=== PATIENT | female | born 1940 | race Two or more races ===

== ENCOUNTER 2022-12-18 08:26 | Outpatient (OUT) | payer MEDICARE, SELFPAY ==
[2022-12-19 07:42] LABS: Basophils Percent Auto 0.8 % (0.2-2.0); Eosinophils Absolute Auto 0.1 10^3/uL (0.0-0.7); Eosinophils Percent Auto 1.6 % (0.9-7.0); Hematocrit 34.9 % (36.0-48.0); Hemoglobin 11.6 g/dL (12.0-16.0); Lymphocytes Percent Auto 25.9 % (20.5-60.0); Mean Corpuscular HGB Conc 33.2 g/dL (29.9-35.2); Mean Corpuscular Hemoglobin 31.1 pg (26.7-34.0); Mean Corpuscular Volume 93.6 fL (81.0-99.0); Mean Platelet Volume 9.4 fL (9.5-13.5); Monocytes Absolute Auto 0.3 10^3/uL (0.3-0.8); Monocytes Percent Auto 8.5 % (1.7-12.0); Neutrophils Absolute Auto 2.4 10^3/uL (1.4-6.5); Neutrophils Percent Auto 63.2 % (43.0-75.0); Platelet Count 260 10^3/uL (150-450); Red Blood Count 3.73 10^6/uL (4.20-5.40); Red Cell Distribution Width 13.6 % (11.0-15.0); White Blood Count 3.9 10^3/uL (4.0-11.0)
[2022-12-19 09:07] LABS: Estimated Average Glucose 117 mg/dL; Glycohemoglobin A1C 5.7 % (4.5-6.2)
[2022-12-19 13:13] LABS: Alanine Aminotransferase 30 U/L (14-59); Albumin Globulin Ratio 0.9; Albumin Level 3.7 g/dL (3.4-5.0); Alkaline Phosphatase 47 U/L (46-116); Anion Gap 12.5; Aspartate Amino Transferase 23 U/L (15-37); BUN Creatinine Ratio 11.7; Bilirubin Total 0.4 mg/dL (0.2-1.0); Calcium 9.1 mg/dL (8.5-10.1); Carbon Dioxide 27.8 mmol/L (21.0-32.0); Chloride 100 mmol/L (98-107); Chol HDL Ratio 1.6; Cholesterol 146 mg/dL (<=200); Estimated GFR (African America >60 (>=60); Estimated GFR (Non-African Ame 57 (>=60); Globulin 3.9 g/dL; Glucose 102 mg/dL (74-106); HDL Cholesterol 90 mg/dL (40-60); Potassium 4.3 mmol/L (3.5-5.1); Sodium 136 mmol/L (136-145); Total Protein 7.6 g/dL (6.4-8.2); Triglycerides 74 mg/dL (<=150); VLDL CHOLESTEROL 14.8 mg/dL
== END 2022-12-18 08:27 | disposition home or self-care (01) ==
LOC: LAB 08:30
PROVIDERS: PCP Internal Medicine; Visit Provider Internal Medicine
DX: I10 Essential (primary) hypertension (principal); E11.9 Type 2 diabetes mellitus without complications; E78.5 Hyperlipidemia, unspecified
CPT/HCPCS: 36415; 80053; 80061; 83036; 85025

== ENCOUNTER 2023-03-26 09:19 | Outpatient (OUT) | payer MEDICARE, SELFPAY ==
--- NOTE | 2023-03-26 | XR_ITS ---
[address] [address] Patient Name: JUMANA LEAL MRN: [id number] date: 1940 Sex: F Assigned Patient Location: [facility] Current Patient Location: [facility] Accession/Order Number: [id number] Exam Date: 03/26/2023 09:40 Report Date: 03/26/2023 10:45 At the request of: SHAIKH JANELLE Procedure: XR lumbar spine 2-3V EXAM: XR lumbar spine 2-3V HISTORY: Chronic back pain M54.9 COMPARISON: None. TECHNIQUE: 3 views Findings/impression: Moderate S-shaped scoliosis. Thoracolumbar spine. Retrolisthesis of L3 over L4 by 7 mm. Maintained vertebral body heights. Moderate to severe multilevel endplate degenerative changes and disc disease of L1-L4. No acute fracture. Electronically authenticated by: FELISA PERRIN Date: 03/26/2023 10:45
== END 2023-03-26 09:20 | disposition home or self-care (01) ==
LOC: RAD 09:23
PROVIDERS: PCP Internal Medicine; Visit Provider Internal Medicine
DX: M54.9 Dorsalgia, unspecified (principal); M41.85 Other forms of scoliosis, thoracolumbar region; M43.16 Spondylolisthesis, lumbar region; M47.816 Spondylosis without myelopathy or radiculopathy, lumbar region; M51.36 Other intervertebral disc degeneration, lumbar region
CPT/HCPCS: 72100

== ENCOUNTER 2023-07-22 07:41 | Outpatient (OUT) | payer MEDICARE, SELFPAY ==
[2023-07-22 08:07] LABS: Basophils Percent Auto 0.4 % (0.2-2.0); Eosinophils Absolute Auto 0.1 10^3/uL (0.0-0.7); Eosinophils Percent Auto 1.5 % (0.9-7.0); Hematocrit 35.4 % (36.0-48.0); Hemoglobin 11.5 g/dL (12.0-16.0); Immature Granulocytes Abs Auto 0.02 10^3/uL (0.00-0.03); Immature Granulocytes Pct Auto 0.4 % (0.0-0.5); Lymphocytes Absolute Auto 1.3 10^3/uL (1.2-3.8); Lymphocytes Percent Auto 27.1 % (20.5-60.0); Mean Corpuscular HGB Conc 32.5 g/dL (29.9-35.2); Mean Corpuscular Hemoglobin 30.9 pg (26.7-34.0); Mean Corpuscular Volume 95.2 fL (81.0-99.0); Mean Platelet Volume 9.7 fL (9.5-13.5); Monocytes Absolute Auto 0.4 10^3/uL (0.3-0.8); Monocytes Percent Auto 8.1 % (1.7-12.0); Neutrophils Percent Auto 62.5 % (43.0-75.0); Platelet Count 225 10^3/uL (150-450); Red Blood Count 3.72 10^6/uL (4.20-5.40); Red Cell Distribution Width 14.2 % (11.0-15.0); White Blood Count 4.8 10^3/uL (4.0-11.0)
[2023-07-22 08:53] LABS: Estimated Average Glucose 123 mg/dL; Glycohemoglobin A1C 5.9 % (4.5-6.2)
[2023-07-22 09:06] LABS: Alanine Aminotransferase 25 U/L (14-59); Albumin Globulin Ratio 0.9; Albumin Level 3.6 g/dL (3.4-5.0); Alkaline Phosphatase 50 U/L (46-116); Anion Gap 14.1; Aspartate Amino Transferase 20 U/L (15-37); BUN Creatinine Ratio 19.4; Bilirubin Total 0.4 mg/dL (0.2-1.0); Calcium 9.3 mg/dL (8.5-10.1); Carbon Dioxide 28.9 mmol/L (21.0-32.0); Chloride 101 mmol/L (98-107); Chol HDL Ratio 2.1; Cholesterol 176 mg/dL (<=200); Estimated GFR (African America >60 (>=60); Estimated GFR (Non-African Ame 55 (>=60); Globulin 4.1 g/dL; Glucose 94 mg/dL (74-106); HDL Cholesterol 85 mg/dL (40-60); Sodium 140 mmol/L (136-145); Total Protein 7.7 g/dL (6.4-8.2); Triglycerides 129 mg/dL (<=150); VLDL CHOLESTEROL 25.8 mg/dL
== END 2023-07-22 07:42 | disposition home or self-care (01) ==
LOC: LAB 07:42
PROVIDERS: PCP Internal Medicine; Visit Provider Internal Medicine
DX: E11.9 Type 2 diabetes mellitus without complications (principal); E78.5 Hyperlipidemia, unspecified; E03.9 Hypothyroidism, unspecified; I10 Essential (primary) hypertension
CPT/HCPCS: 36415; 80053; 80061; 83036; 84443; 85025

== ENCOUNTER 2024-04-27 08:05 | Outpatient (OUT) | payer MEDICARE, SELFPAY ==
--- OUTSIDE RECORDS SUMMARY | 2024-04-27 08:12 | XMS_ITS | CCD ---
Author Organization [facility] Care Team Providers Care Senior Nuclear Medicine Technologist Name Role Phone FAWWAD, GARCIA H Attending Unavailable FAWWAD, GARCIA H Consulting Unavailable FAWWAD, GARCIA H Primary Care Unavailable FAWWAD, GARCIA H Admitting Unavailable FAWWAD, GARCIA H Attending Unavailable FAWWAD, GARCIA H Consulting Unavailable FAWWAD, GARCIA H Primary Care Unavailable FAWWAD, GARCIA H Admitting Unavailable FAWWAD, GARCIA H Attending Unavailable FAWWAD, GARCIA H Consulting Unavailable FAWWAD, GARCIA H Primary Care Unavailable FAWWAD, GARCIA H Admitting Unavailable FAWWAD, GARCIA Referring Unavailable FAWWAD, GARCIA Primary Care Unavailable SHIRAZ DOBSON Attending Unavailable FAWWAD, GARCIA Primary Care Unavailable Negar CISNEROS, Yannick Primary Care Provider Walsh ECOLOGY PROFESSOR, Marybeth Unavailable JANELLE, GARCIA Attending Unavailable FAWWAD, GARCIA Attending Unavailable WALSHBREE WYATTY Attending Unavailabl BRANDEE Vilchis Attending Unavailable WALSH, MARYBETH Referring Unavailabl e VY DE DIOS Attending Unavailable WALSHMARYBETH HONG Referring Unavailabl e EPI FELIX Attending Unavailable WALSH, MARYBETH Referring Unavailabl e EPI FELIX Attending Unavailable WALSH, MARYBETH Referring Unavailabl e EPI FELIX Attending Unavailable MARYBETH WALSH Referring Unavailabl e EPI FELIX Attending Unavailable WALSH, MARYBETH Referring Unavailabl e VY DE DIOS Attending Unavailable WALSH, MARYBETH Referring Unavailabl e VY DE DIOS Attending Unavailable MARYBETH WALSH Referring Unavailabl e Allergies Allergy Classification Reported Allergen(s) Allergy Type Date of Onset Reaction(s) Facility (1 source) BEE VENOM PROTEIN (HONEY BEE); Translations: [BEE VENOM PROTEIN (HONEY BEE)] Propensity to adverse reactions to drug (disorder) 0 [facility] (7 sources) Honey bee venom Propensity to adverse reactions 0 [facility] Medications Current Medications Medication Drug Class(es) Dates Sig (Normalized) Sig (Original) amLODIPine 5 mg oral tablet (7 sources) Dihydropyridine Calcium Channel Kamryn Start: 4 End: 4 take 1 tablet by mouth in the morning amLODIPine (Norvasc) 5 MG tablet Indications: Primary hypertension (CMS/HCC) Take 1 tablet (5 mg) by mouth in the morning. 90 tablet 1 11/25/2023 05/23/2024 Active atorvastatin 20 mg oral tablet (7 sources) HMG-CoA Reductase Inhibitor Start: 4 End: 5 take 1 tablet by mouth once daily atorvastatin (Lipitor) 20 MG tablet Indications: Other hyperlipidemia (CMS/HCC) Take 1 tablet (20 mg) by mouth Daily 30 tablet 11 03/28/2024 03/28/2025 Active Blood Glucose Monitoring Suppl (True Metrix Meter) w/Device kit (7 sources) Blood Glucose Monitoring Suppl (True Metrix Meter) w/Device kit Active calcium carbonate 1500 mg oral tablet (7 sources) take 1 tablet by mouth in the morning calcium carbonate 1500 (600 Ca) MG tablet Take 1,500 mg by mouth in the morning and 1,500 mg in the evening. Take with meals. Active cholecalciferol 0.05 mg oral capsule (7 sources) Vitamin D take 1 capsule by mouth in the morning cholecalciferol (Vitamin D-3) 50 MCG (2000 UT) capsule Take 2,000 Units by mouth in the morning. 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 Take before meals. 90 tablet 1 10/26/2023 04/23/2024 Active lisinopril 10 mg oral tablet (7 sources) Angiotensin Converting Enzyme Inhibitor Start: 4 End: 4 take 1 tablet by mouth once daily lisinopril 10 MG tablet Indications: Primary hypertension (CMS/HCC) Take 1 tablet (10 mg) by mouth 1 (one) time each day at the same time 90 tablet 1 11/03/2023 05/01/2024 Active loratadine 10 mg oral tablet (7 sources) take 1 tablet by mouth in the morning loratadine (Claritin) 10 MG tablet Take 10 mg by mouth in the morning. Active metFORMIN hydrochloride 500 mg oral tablet (7 sources) Biguanide Start: 4 take 1 tablet by mouth at mealtime metFORMIN (Glucophage) 500 MG tablet Indications: Type 2 diabetes mellitus without complication, without long-term current use of insulin (CMS/HCC) Take 1 tablet (500 mg) by mouth in the morning. Take with meals. 90 tablet 2 03/07/2024 Active omeprazole 20 mg delayed release oral capsule (7 sources) Proton Pump Inhibitor Start: 4 End: 5 take 1 capsule by mouth once daily omeprazole (PriLOSEC) [address] capsule Indications: Gastroesophageal reflux disease without esophagitis Take 1 capsule (20 mg) by mouth 1 (one) time each day at the same time 90 capsule 1 01/11/2024 07/09/2024 Active triamcinolone acetonide 0.055 mg/actuat metered dose nasal spray (7 sources) Corticosteroid take 2 spray(s) nasal route in the morning triamcinolone (Nasacort) 55 MCG/ACT nasal inhaler Administer 2 sprays into each nostril in the morning. Active Problems Active Problems Problem Classification Problem Date Documented Date Episodic/Chronic Deficiency and other anemia (4 sources) Anemia, unspecified; Translations: [ANEMIA UNSPECIFIED] Onset: 03-25-2022 Episodic Diabetes mellitus without complication (11 sources) Type 2 diabetes mellitus without complications; Translations: [Type 2 diabetes mellitus without complication] Onset: 12-16-2021 Chronic Disorders of lipid metabolism (8 sources) Hyperlipidemia, unspecified; Translations: [Hyperlipidemia] Onset: 12-18-2021 07-23-2023 Chronic Esophageal disorders (7 sources) Gastroesophageal reflux disease without esophagitis; Translations: [Gastro-esophageal reflux disease without esophagitis] Onset: 07-23-2023 07-23-2023 Chronic Essential hypertension (10 sources) Essential (primary) hypertension; Translations: [Hypertensive disorder] Onset: 12-18-2021 07-23-2023 Chronic Neoplasms of unspecified nature or uncertain behavior (7 sources) Neoplasm of uncertain behavior of skin; Translations: [Neoplasm of uncertain behavior of skin] Onset: 03-07-2024 03-07-2024 Episodic Osteoarthritis (7 sources) Osteoarthritis of left knee joint; Translations: [Unilateral primary osteoarthritis, left knee] Onset: 07-23-2023 07-23-2023 Chronic Other connective tissue disease (7 sources) History of total knee arthroplasty; Translations: [Presence of left artificial knee joint] Onset: 07-23-2023 07-23-2023 Chronic Spondylosis; intervertebral disc disorders; other back problems (11 sources) Chronic back pain ; Translations: [Dorsalgia, unspecified] 03-07-2024 Episodic Thyroid disorders (8 sources) Hypothyroidism, unspecified; Translations: [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] Onset: 12-18-2021 07-23-2023 Chronic Unclassified (1 source) High BP Onset: 12-15-2023 Past or Other Problems Problem Classification Problem Date Documented Date Episodic/Chronic Other bone disease and musculoskeletal deformities (7 sources) Osteopenia; Translations: [Other specified disorders of bone density and structure, unspecified site] Onset: 07-23-2023 07-23-2023 Episodic Other connective tissue disease (1 source) Personal history of other diseases of the musculoskeletal system and connective tissue; Translations: [Personal history of other diseases of the musculoskeletal system and connective tissue] Onset: 06-25-2023 Episodic Other screening for suspected conditions (not mental disorders or infectious disease) (2 sources) Encounter for screening mammogram for malignant neoplasm of breast; Translations: [Encounter for screening for osteoporosis] Onset: 06-25-2023 Episodic Residual codes; unclassified (1 source) Asymptomatic menopausal state; Translations: [Asymptomatic menopausal state] Onset: 12-28-2023 Episodic Results Test Name Value Interpretation Reference Range Facility DEXA SCAN CENTRAL SKELETALon 06-25-2023 DEXA SCAN CENTRAL SKELETAL DEXA SCAN CENTRAL SKELETAL CLINICAL INFORMATION: Postmenopausal; Screening for osteoporosis; Hx of osteopenia, Post menopausal, TECHNIQUE: Dual X-ray Absorptiometry (DXA) was performed. COMPARISON: No relevant prior studies available. FINDINGS: LUMBAR SPINE (L1-L4): BMD is 1.745 gm/cm2. T-score is 4.4. LEFT FEMORAL NECK: BMD is 0.921 gm/cm2. T-score is -0.8. LEFT TOTAL FEMUR: BMD is 0.974 gm/cm2. T-score is -0.3. RIGHT FEMORAL NECK: BMD is 0.861 gm/cm2. T-score is -1.3. RIGHT TOTAL FEMUR: BMD is 1.000 gm/cm2. T-score is -0.1. The estimated 10-year probability for a major osteoporotic fracture (utilizing FRAX) is 7.5% and for a hip fracture is 1.7%. IMPRESSION: Osteopenia (based on WHO criteria). WHO CLASSIFICATION: Normal: T-score -1.0 or above Osteopenia: T-score -1.1 to < 2.5 Osteoporosis: T-score -2.5 or lower Secondary causes of bone loss should be evaluated if clinically indicated since the etiology of low BMD cannot be determined by BMD measurement alone. 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 Computer-aided detection was used in the interpretation of this examination. COMPARISON: 2017 2020 2021 FINDINGS: Breast density: There are scattered areas of fibroglandular density. No suspicious calcifications, masses or architectural distortion. There has been no significant interval change. IMPRESSION: * No mammographic evidence of malignancy. ASSESSMENT- BI-RADS 1 - Negative Recommendation: Routine screening mammogram in 1 year Finalized by Mian Fleming DO on 06/25/2023 1:32 PM 1 b MAMM 1 YR Normal [facility] TRANSFERRINon 03-27-2022 Transferrin [Mass/Vol] 254 mg/dL Normal 192-364 [facility] Comment on above: Performed By: #### T RANSFR #### [facility] [address] [place] [address] Dr. Esperanza Sheets CBC AUTO DIFFon 03-25-2022 BASO # 0.0 103/ul Normal 0.0-0.1 [facility] Comment on above: Performed By: #### C BC #### [facility] [address] [place] [address] Dr. Esperanza Sheets Basophils/100 WBC (Bld) 0.8 % Normal 0.2-2.0 [facility] Comment on above: Performed By: #### C BC #### [facility] [address] [place] [address] Dr. Esperanza Sheets EO # 0.1 103/ul Normal 0.0-0.7 [facility] Comment on above: Performed By: #### C BC #### [facility] [address] [place] [address] Dr. Esperanza Sheets Eosinophils/100 WBC (Bld) 1.2 % Normal 0.9-7.0 [facility] Comment on above: Performed By: #### C BC #### [facility] [address] [place] [address] Dr. Esperanza Sheets Erythrocyte distribution width (RBC) [Ratio] 14.4 % Normal 11.0-15.0 [facility] Comment on above: Performed By: #### C BC #### [facility] [address] [place] [address] Dr. Esperanza Sheets Hematocrit (Bld) [Volume fraction] 33.5 % Critically low 36.0-48.0 [facility] Comment on above: Performed By: #### C BC #### [facility] [address] [place] [address] Dr. Esperanza Sheets Hemoglobin (Bld) [Mass/Vol] 10.7 g/dL Critically low 12.0-16.0 [facility] Comment on above: Performed By: #### C BC #### [facility] [address] [place] [address] Dr. Esperanza Sheets IG # 0.02 10e3/ul Normal 0.00-0.03 [facility] Comment on above: Performed By: #### C BC #### [facility] [address] [place] [address] Dr. Esperanza Sheets IG % 0.4 % Normal 0.0-0.5 [facility] Comment on above: Performed By: #### C BC #### [facility] [address] [place] [address] Dr. Esperanza Sheets LYMPH # 1.3 103/ul Normal 1.2-3.8 [facility] Comment on above: Performed By: #### C BC #### [facility] [address] [place] [address] Dr. Esperanza Sheets Lymphocytes/100 WBC (Bld) 24.2 % Normal 20.5-60.0 [facility] Comment on above: Performed By: #### C BC #### [facility] [address] [place] [address] Dr. Esperanza Sheets MANUAL DIFF REQ NO Normal [facility] Comment on above: Performed By: #### C BC #### [facility] [address] [place] [address] Dr. Esperanza Sheets MCH (RBC) [Entitic mass] 30.3 pg Normal 26.7-34.0 [facility] Comment on above: Performed By: #### C BC #### [facility] [address] [place] [address] Dr. Esperanza Sheets MCHC (RBC) [Mass/Vol] 31.9 g/dL Normal 29.9-35.2 [facility] Comment on above: Performed By: #### C BC #### [facility] [address] [place] [address] Dr. Esperanza Sheets MCV (RBC) [Entitic vol] 94.9 fL Normal 81.0-99.0 [facility] Comment on above: Performed By: #### C BC #### [facility] [address] [place] [address] Dr. Esperanza Sheets MONO # 0.3 103/ul Normal 0.3-0.8 [facility] Comment on above: Performed By: #### C BC #### [facility] [address] [place] [address] Dr. Esperanza Sheets Monocytes/100 WBC (Bld) 6.5 % Normal 1.7-12.0 [facility] Comment on above: Performed By: #### C BC #### [facility] [address] [place] [address] Dr. Esperanza Sheets NEUT # 3.5 103/ul Normal 1.4-6.5 [facility] Comment on above: Performed By: #### C BC #### [facility] [address] [place] [address] Dr. Esperanza Sheets Neutrophils/100 WBC (Bld) 66.9 % Normal 43.0-75.0 [facility] Comment on above: Performed By: #### C BC #### [facility] [address] [place] [address] Dr. Esperanza Sheets Platelet mean volume (Bld) [Entitic vol] 9.8 fL Normal 9.5-13.5 [facility] Comment on above: Performed By: #### C BC #### [facility] [address] [place] [address] Dr. Esperanza Sheets PLT 265 103/ul Normal 150-450 [facility] Comment on above: Performed By: #### C BC #### [facility] [address] [place] [address] Dr. Esperanza Sheets RBC 3.53 106/ul Critically low 4.20-5.40 [facility] Comment on above: Performed By: #### C BC #### [facility] [address] [place] [address] Dr. Esperanza Sheets WBC 5.2 103/ul Normal 4.0-11.0 [facility] Comment on above: Performed By: #### C BC #### [facility] [address] [place] [address] Dr. Esperanza Sheets FERRITINon 09-27-2022 Ferritin [Mass/Vol] 63.0 ng/mL Normal 8.0-252.0 [facility] Comment on above: Performed By: #### F ETIBC, FERR #### [facility] [address] [place] [address] Dr. Esperanza Sheets IRON AND TIBCon 03-25-2022 % SATURATION 13.7 % Normal [facility] Comment on above: Performed By: #### F ETIBC, FERR #### [facility] [address] [place] [address] Dr. Esperanza Sheets Iron [Mass/Vol] 39.0 ug/dL Critically low 50.0-170.0 [facility] Comment on above: Performed By: #### F ETIBC, FERR #### [facility] [address] [place] [address] Dr. Esperanza Sheets TIBC DIRECT 285.0 ug/dL Normal 250.0-450.0 [facility] Comment on above: Performed By: #### F ETIBC, FERR #### [facility] [address] [place] [address] Dr. Esperanza Sheets ECHOCARDIO M/2D COMPLETEon 0 12-27-2021 ECHOCARDIO M/2D COMPLETE Patient: JUMANA LEAL Exam Date: 12/27/2021 : 1940 Gender:F Ordering : SHAIKH Jesus LUIS . Admission #: [id number] Family : Order #: [id number] CLICK HERE TO VIEW EXAM ECHOCARDIOGRAM REPORT PROCEDURE: CARDIO PULMONARY ECHOCARDIO M/2D COMP INDICATIONS: Pre-operative clearance, hypertension COMPARISON: None. DESCRIPTION: COMPLETE ECHOCARDIOGRAM Real-time transthoracic echocardiography with 2D, M-mode, spectral and color flow Doppler performed. QUALITY: Technical quality was good. LEFT VENTRICLE: Normal chamber size. Thickened septal wall. Normal systolic function. LV EF: Normal left ventricular ejection fraction, (60%). DIASTOLIC: Grade I diastolic dysfunction. ATRIAL SEPTUM: Visually appears intact. LEFT ATRIUM: Mild dilatation. RIGHT ATRIUM: Mild dilatation. RIGHT VENTRICLE: Normal chamber size. Normal right ventricular systolic function. TRICUSPID VALVE: Normal mobility and thickness. No stenosis with no regurgitation. MITRAL VALVE: Normal mobility and thickness. No evidence of mitral valve stenosis. There is no mitral annular calcification. Trivial mitral regurgitation. AORTIC VALVE: Normal trileaflet appearance. No visible sclerosis. Normal leaflet mobility. No evidence of aortic valve stenosis. No aortic regurgitation. AORTIC ROOT: Normal diameter and appearance. Ascending aorta is normal in size. PULMONIC VALVE: Normal thickness and mobility. No stenosis. No regurgitation. PERICARDIUM: No evidence of pericardial effusion. IVC: Collapses with inspirations. PLEURA: CONCLUSION: 1. Normal ventricular systolic function. LVEF is 60%. 2. Mild diastolic dysfunction. 3. Mild biatrial dilatation. 4. No significant valvular dysfunction. 5. No pericardial effusion. Dictated by: Trent Tejada M.D. on 12/27/2021 at 18:38 Approved by: Trent Tejada M.D. on 12/27/2021 at 18:40 Normal [facility] XR femur BIon 12-18-2021 XR femur BI [facility] [place] [address] [place] [address] XRay Report Signed Patient: Jumana Leal MR#: [id number] : 1940 Acct:[id number] Age/Sex: 81 / F ADM Date: 12/18/21 Loc: ICXD Room: Type: [facility] Attending Dr: Emiliano Hui PA-C Copies to: Emiliano Hui PA-C Ordering Provider: Emiliano Hui PA-C Date of Service: 12/18/21 XR/XR tibia/fibula BI: TKA ([id number]) XR/XR femur BI: TKA LEFT KNEE Bilateral femurs and bilateral tibias and fibulas 12/18/2021. CLINICAL DATA: Plan for left knee replacement. Presurgical evaluation. FINDINGS: AP views of both femurs and both tibias and fibulas were obtained. There are degenerative changes at the left knee including joint space narrowing and subchondral sclerosis in the medial femorotibial compartment. There is associated genu varum. Relatively mild degenerative changes are seen at both hips and at the right knee. The lumbar spine demonstrate advanced degenerative changes and curvature. XR/XR tibia/fibula BI IMPRESSION: Degenerative changes at the left knee as described. Impression dictated by: Ivan Yusuf Jr., M.D.12/18/2021 3:28 PM Dictation Location: [place] [address] Transcribed By: [facility] 12/18/211527 Dictated By: Ivan Yusuf Jr, MD 12/18/211521 Signed By: 12/18/211527 [facility] CBC AUTO DIFFon 12-16-2021 BASO # 0.0 103/ul Normal 0.0-0.1 [facility] Comment on above: Performed By: #### C BC #### [facility] [address] [address] [address] Esperanza Sheets Basophils/100 WBC (Bld) 0.6 % Normal 0.2-2.0 [facility] Comment on above: Performed By: #### C BC #### [facility] [address] [place] [address] Dr. Esperanza Sheets EO # 0.1 103/ul Normal 0.0-0.7 [facility] Comment on above: Performed By: #### C BC #### [facility] [address] [address] [address] Esperanza Sheets Eosinophils/100 WBC (Bld) 1.5 % Normal 0.9-7.0 [facility] Comment on above: Performed By: #### C BC #### [facility] [address] [address] [address] Esperanza Sheets Erythrocyte distribution width (RBC) [Ratio] 13.9 % Normal 11.0-15.0 [facility] Comment on above: Performed By: #### C BC #### [facility] [address] [address] [address] Esperanza Sheets Hematocrit (Bld) [Volume fraction] 34.8 % Critically low 36.0-48.0 [facility] Comment on above: Performed By: #### C BC #### [facility] [address] [place] [address] Dr. Esperanza Sheets Hemoglobin (Bld) [Mass/Vol] 11.4 g/dL Critically low 12.0-16.0 [facility] Comment on above: Performed By: #### C BC #### [facility] [address] [place] [address] Dr. Esperanza Sheets IG # 0.02 10e3/ul Normal 0.00-0.03 [facility] Comment on above: Performed By: #### C BC #### [facility] [address] [place] [address] Dr. Esperanza Sheets IG % 0.4 % Normal 0.0-0.5 [facility] Comment on above: Performed By: #### C BC #### [facility] [address] [place] [address] Dr. Esperanza Sheets LYMPH # 2.0 103/ul Normal 1.2-3.8 [facility] Comment on above: Performed By: #### C BC #### [facility] [address] [place] [address] Dr. Esperanza Sheets Lymphocytes/100 WBC (Bld) 37.6 % Normal 20.5-60.0 [facility] Comment on above: Performed By: #### C BC #### [facility] [address] [place] [address] Dr. Esperanza Sheets MANUAL DIFF REQ NO Normal [facility] Comment on above: Performed By: #### C BC #### [facility] [address] [place] [address] Dr. Esperanza Sheets MCH (RBC) [Entitic mass] 31.3 pg Normal 26.7-34.0 [facility] Comment on above: Performed By: #### C BC #### [facility] [address] [place] [address] Dr. Esperanza Sheets MCHC (RBC) [Mass/Vol] 32.8 g/dL Normal 29.9-35.2 [facility] Comment on above: Performed By: #### C BC #### [facility] [address] [place] [address] Dr. Esperanza Sheets MCV (RBC) [Entitic vol] 95.6 fL Normal 81.0-99.0 [facility] Comment on above: Performed By: #### C BC #### [facility] [address] [place] [address] Dr. Esperanza Sheets MONO # 0.3 103/ul Normal 0.3-0.8 [facility] Comment on above: Performed By: #### C BC #### [facility] [address] [address] [address] Esperanza Sheets Monocytes/100 WBC (Bld) 6.6 % Normal 1.7-12.0 [facility] Comment on above: Performed By: #### C BC #### [facility] [address] [place] [address] Dr. Esperanza Sheets NEUT # 2.8 103/ul Normal 1.4-6.5 [facility] Comment on above: Performed By: #### C BC #### [facility] [address] [place] [address] Dr. Esperanza Sheets Neutrophils/100 WBC (Bld) 53.3 % Normal 43.0-75.0 [facility] Comment on above: Performed By: #### C BC #### [facility] [address] [place] [address] Dr. Esperanza Sheets Platelet mean volume (Bld) [Entitic vol] 9.8 fL Normal 9.5-13.5 [facility] Comment on above: Performed By: #### C BC #### [facility] [address] [place] [address] Dr. Esperanza Sheets PLT 274 103/ul Normal 150-450 [facility] Comment on above: Performed By: #### C BC #### [facility] [address] [place] [address] Dr. Esperanza Sheets RBC 3.64 106/ul Critically low 4.20-5.40 [facility] Comment on above: Performed By: #### C BC #### [facility] [address] [place] [address] Dr. Esperanza Sheets WBC 5.2 103/ul Normal 4.0-11.0 [facility] Comment on above: Performed By: #### C BC #### [facility] [address] [place] [address] Dr. Esperanza Sheets GLYCOHEMOGLOBIN A1Con 2021 ADA RECOMMENDATION SEE BELOW Normal [facility] Comment on above: Result Comment: ADA RECOMMENDED LIMIT 4.0 - 6.0 ADA THERAPEUTIC TARGET < 7.0 ACTION SUGGESTED > 7.0 Performed By: #### A 1C #### [facility] [address] [address] [address] Esperanza Sheets Glucose [Mass/Vol] 128 mg/dL Normal [facility] Comment on above: Performed By: #### A 1C #### [facility] [address] [address] [address] Esperanza Sheets HbA1c (Bld) [Mass fraction] 6.1 % Normal 4.5-6.2 [facility] [place] Comment on above: Performed By: #### A 1C #### [facility] [address] [place] [address] Dr. Esperanza Sheets LIPID PROFILEon 12-16-2021 CHOL-HDL RATIO NORM SEE BELOW Normal [facility] Comment on above: Result Comment: 3.3 - 4.4 LOW RISK 4.4 - 7.1 AVERAGE RISK 7.1 - 11.0 MODERATE RISK >11.0 HIGH RISK Performed By: #### L IPID, CMP, TSH #### [facility] [address] [place] [address] Dr. Esperanza Sheets Cholesterol [Mass/Vol] 159 mg/dL Normal <=200 [facility] [place] Comment on above: Performed By: #### L IPID, CMP, TSH #### [facility] [address] [address] [address] Esperanza Sheets Cholesterol in HDL [Mass/Vol] 91 mg/dL Critically high 40-60 [facility] [place] Comment on above: Performed By: #### L IPID, CMP, TSH #### [facility] [address] [place] [address] Dr. Esperanza Sheets Cholesterol in LDL [Mass/Vol] 41.8 mg/dL Normal [facility] [place] Comment on above: Performed By: #### L IPID, CMP, TSH #### [facility] [address] [place] [address] Dr. Esperanza Sheets Cholesterol.total/Cho lesterol in HDL [Mass ratio] 1.7 {ratio} Normal [facility] [place] Comment on above: Performed By: #### L IPID, CMP, TSH #### [facility] [address] [address] [address] Esperanza Sheets HDL NORMAL > or = 60 mg/dl - LOW CARDIOVASCULAR RISK <40 mg/dl - HIGH CARDIOVASCULAR RISK Normal [facility] [place] Comment on above: Performed By: #### L IPID, CMP, TSH #### [facility] [address] [address] [address] Esperanza Sheets LDL CALC NORMAL SEE BELOW Normal [facility] Comment on above: Result Comment: <100 mg/dl OPTIMAL 100 - 129 mg/dl NEAR OR ABOVE OPTIMAL 130 - 159 mg/dl BORDERLINE HIGH 160 - 189 mg/dl HIGH >190 mg/dl VERY HIGH Performed By: #### L IPID, CMP, TSH #### [facility] [address] [place] [address] Dr. Esperanza Sheets Triglyceride [Mass/Vol] 131 mg/dL Normal <=150 [facility] [place] Comment on above: Performed By: #### L IPID, CMP, TSH #### [facility] [address] [place] [address] Dr. Esperanza Sheets VLDL CALC 26.2 mg/dL Normal [facility] [place] Comment on above: Performed By: #### L IPID, CMP, TSH #### [facility] [address] [place] [address] Dr. Esperanza Sheets PROF 14(COMP METB)on 022 Albumin [Mass/Vol] 3.8 g/dL Normal 3.4-5.0 [facility] Comment on above: Performed By: #### L IPID, CMP, TSH #### [facility] [address] [place] [address] Dr. Esperanza Sheets Albumin/Globulin [Mass ratio] 1.0 {ratio} Normal [facility] [place] Comment on above: Performed By: #### L IPID, CMP, TSH #### [facility] [address] [place] [address] Dr. Esperanza Sheets ALP [Catalytic activity/Vol] 56 U/L Normal 46-116 [facility] [place] Comment on above: Performed By: #### L IPID, CMP, TSH #### [facility] [address] [address] [address] Esperanza Sheets ALT [Catalytic activity/Vol] 39 U/L Normal 14-59 [facility] [place] Comment on above: Performed By: #### L IPID, CMP, TSH #### [facility] [address] [address] [address] Esperanza Sheets Anion gap [Moles/Vol] 14.4 mmol/L Normal [facility] Comment on above: Performed By: #### L IPID, CMP, TSH #### [facility] [address] [address] [address] Esperanza Sheets AST [Catalytic activity/Vol] 28 U/L Normal 15-37 [facility] [place] Comment on above: Performed By: #### L IPID, CMP, TSH #### [facility] [address] [address] [address] Esperanza Sheets Bilirubin [Mass/Vol] 0.4 mg/dL Normal 0.2-1.0 [facility] [place] Comment on above: Performed By: #### L IPID, CMP, TSH #### [facility] [address] [place] [address] Dr. Esperanza Sheets Calcium [Mass/Vol] 9.1 mg/dL Normal 8.5-10.1 [facility] Comment on above: Performed By: #### L IPID, CMP, TSH #### [facility] [address] [place] [address] Dr. Esperanza Sheets Chloride [Moles/Vol] 100 mmol/L Normal 98-107 [facility] [place] Comment on above: Performed By: #### L IPID, CMP, TSH #### [facility] [address] [place] [address] Dr. Esperanza Sheets CO2 [Moles/Vol] 25.6 mmol/L Normal 21.0-32.0 [facility] Comment on above: Performed By: #### L IPID, CMP, TSH #### [facility] [address] [address] [address] Esperanza Sheets Creatinine [Mass/Vol] 0.83 mg/dL Normal 0.55-1.02 [facility] [place] Comment on above: Performed By: #### L IPID, CMP, TSH #### [facility] [address] [address] [address] Esperanza Sheets EGFR-AF SWISS >60 Normal >=60 [facility] Comment on above: Performed By: #### L IPID, CMP, TSH #### [facility] [address] [address] [address] Esperanza Sheets EGFR-NON AF SWISS >60 Normal >=60 [facility] [place] Comment on above: Performed By: #### L IPID, CMP, TSH #### [facility] [address] [address] [address] Esperanza Sheets Globulin (S) [Mass/Vol] 3.7 g/dL Normal [facility] [place] Comment on above: Performed By: #### L IPID, CMP, TSH #### [facility] [address] [address] [address] Esperanza Sheets Glucose [Mass/Vol] 148 mg/dL Critically high 74-106 [facility] Comment on above: Performed By: #### L IPID, CMP, TSH #### [facility] [address] [address] [address] Esperanza Sheets Potassium [Moles/Vol] 4.0 mmol/L Normal 3.5-5.1 [facility] [place] Comment on above: Performed By: #### L IPID, CMP, TSH #### [facility] [address] [address] [address] Esperanza Sheets Protein [Mass/Vol] 7.5 g/dL Normal 6.4-8.2 [facility] Comment on above: Performed By: #### L IPID, CMP, TSH #### [facility] [address] [address] [address] Esperanza Sheets Sodium [Moles/Vol] 136 mmol/L Normal 136-145 [facility] Comment on above: Performed By: #### L IPID, CMP, TSH #### [facility] [address] [place], [place] [address] Dr. Esperanza Sheets Urea nitrogen [Mass/Vol] 11.0 mg/dL Normal 7.0-18.0 [facility] Comment on above: Performed By: #### L IPID, CMP, TSH #### [facility] [address] [address] [address] Esperanza Sheets Urea nitrogen/Creatinine [Mass ratio] 13.3 mg/mg Normal [facility] [place] Comment on above: Performed By: #### L IPID, CMP, TSH #### [facility] [address] [address] [address] Esperanza Sheets TSHon 12-16-2021 TSH 2.363 uIU/mL Normal 0.358-3.740 [facility] Comment on above: Performed By: #### L IPID, CMP, TSH #### [facility] [address] [address] [address] Esperanza Sheets Encounters Encounter Date Encounter Type Care Provider Facility Start: 04-15-2024 End: 04-15-2024 ambulatory Vy De Dios PT [facility] Comment on above: Chronic 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 (Primary Dx) Start: 04-05-2024 End: 04-05-2024 Bamboo flowsheet Vy De Dios PT [facility] Start: 04-05-2024 End: 04-05-2024 Bamboo flowsheet Vy De Dios PT [facility] Start: 04-05-2024 End: 04-05-2024 ambulatory Vy De Dios PT [facility] Comment on above: Chronic 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 (Primary Dx) Start: 04-01-2024 End: 04-01-2024 Bamboo flowsheet Epi Felix CABLE MAINTAINER [facility] Start: 04-01-2024 End: 04-01-2024 Bamboo flowsheet Epi Felix CABLE MAINTAINER [facility] Start: 04-01-2024 End: 04-01-2024 ambulatory Epi Felix CABLE MAINTAIN[employer] [facility] Comment on above: Chronic 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 (Primary Dx) Start: 03-29-2024 End: 03-29-2024 Bamboo flowsheet Epi Felix CABLE MAINTAINER [facility] Start: 03-29-2024 End: 03-29-2024 Bamboo flowsheet Epi Felix CABLE MAINTAINER [facility] Start: 03-29-2024 End: 03-29-2024 ambulatory Epi Felxi CABLE MAINTAINER [facility] Comment on above: Chronic 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 (Primary Dx) Start: 03-25-2024 End: 03-25-2024 ambulatory EPI FELIX Not Available Start: 03-23-2024 End: 03-23-2024 ambulatory EPI FELIX Not Available Start: 03-17-2024 End: 03-17-2024 ambulatory VY DE DIOS Not Available Start: 03-16-2024 End: 03-16-2024 ambulatory BRANDEE LANIER Not Available Start: 03-07-2024 End: 03-07-2024 ambulatory MARYBETH MARTINA Not Available Start: 12-15-2023 End: 12-15-2023 Emergency department [facility] Start: 10-26-2023 End: 10-26-2023 ambulatory SHAIKH JUSTINRICKEY Not Available Start: 07-23-2023 End: 07-23-2023 ambulatory GARCIA FAJÚNIOR Not Available Start: 06-25-2023 End: 06-25-2023 ambulatory [facility] Start: 03-25-2022 End: 03-26-2022 ambulatory GARCIA Yohannes JANELLE Facility:[facility] Start: 01-02-2022 Encounter for preprocedural cardiovascular examination GARCIA Yohannes JANELLE [facility] [place] Start: 12-27-2021 End: 12-28-2021 ambulatory GARCIA Yohannes JANELLE Facility:[facility] Start: 12-27-2021 End: 12-28-2021 Encounter for preprocedural cardiovascular examination SHAIKH Yohannes LUIS Facility:[facility] Start: 12-16-2021 End: 12-17-2021 ambulatory Yohannes JANELLE Facility:[facility] Plan of Treatment Date Care Activity Detail Author Start: 11-01-2025 Glaucoma screening Diabetes: R etinopathy Screening [facility] Start: 07-22-2024 Urine screening for protein Diabetes: Urine Protein Screening [facility] Start: 04-28-2024 End: 04-28-2024 Patient encounter procedure 04/28/2024 2:00 PM EDT Office Visit [facility] [address] [place] [id number] Marybeth Walsh, ABIODUN [address] [place] [id number] [facility] Start: 04-22-2024 Medicare Annual Well ness (AWV) Medicare Annual Wellness (AWV) [facility] Start: 04-15-2024 End: 04-15-2024 ambulatory 04/15/2024 12:30 PM EDT Treatment [facility] [address] [facility] [address] [place] [address] Vy De Dios, PT [facility] Start: 04-08-2024 End: 04-08-2024 ambulatory 04/08/2024 12:00 PM EDT Treatment [facility] [address] [place] [address] Epi Felix, AMANDA [facility] Start: 04-05-2024 End: 04-05-2024 ambulatory 04/05/2024 12:30 PM EDT Treatment [facility] [address] [facility] [address] [place] [address] Vy De Dios, PT [facility] Start: 04-01-2024 End: 04-01-2024 ambulatory [facility] Comment on above: Arrived Start: 03-29-2024 End: 03-29-2024 ambulatory 03/29/2024 10:30 AM EDT Treatment [facility] [address] [facility] [address] [place] [address] Epi Felix, CABLE MAINTAINER Arrived [facility] Comment on above: Arrived Start: 09-01-2024 Influenza vaccination Influenza Vacc ine (#1) [facility] Start: 01-20-2024 Hemoglobin A1c measurement Diabetes: Hemoglobin A1C [facility] Immunizations Immunization Date Immunization Notes Care Provider Fa sidneyty 04-22-2023 Influenza, High-dose Seasonal, Quadrivalent, Preservative Free Epi Felix [facility] 04-22-2023 influenza virus vacc ine, unspecified formulation Epi Felix [facility] 05-16-2021 Influenza, High-dose Seasonal, Quadrivalent, Preservative Free Epi Felix [facility] 05-17-2019 influenza, high dose seasonal, preservative-free Epi Felix [facility] 06-14-2018 pneumococcal conjuga te vaccine, 13 valent Epi Felix [facility] 06-14-2018 Seasonal trivalent influenza vaccine, adjuvanted, preservative free Epi Felix [facility] 05-29-2016 influenza, injectabl e, quadrivalent, preservative free Epi Felix [facility] Payers Date Payer Category Payer Private Health Insurance [id number] 2007 Medicare [id number] 1959 Medicare [id number] 1959 Private Health Insurance CLI [id number] 1942 Unknown [id number] 2.16.84 [id number] 1942 Unknown [id number] 2.16.84 [id number] 1942 Unknown [id number] 2.16.84 [id number] 1942 Unknown [id number] 2.16.8 [id number] 1942 Unknown [id number] 2.16.84 0.1.356250.3.579.2.1286 1942 Unknown [id number] 2.16.84 0.1.845662.3.579.2.1286 1942 Unknown [id number] 2.16.84 0.1.513235.3.579.2.1259 1942 Unknown [id number] 2.16.84 0.1.338759.3.579.2.1259 1942 Unknown [id number] 2.16.84 0.1.106011.3.579.2.1259 1942 Unknown [id number] 2.16.84 0.1.682269.3.579.2.1259 1942 Unknown [id number] 2.16.84 0.1.846743.3.579.2.1259 1942 Unknown [id number] 2.16.84 0.1.509853.3.579.2.1259 1942 Unknown [id number] 2.16.84 0.1.277368.3.579.2.1259 1942 Unknown [id number] 2.16.84 0.1.276320.3.579.2.1259 1942 Unknown [id number] 2.16.84 0.1.232275.3.579.2.1259 1942 Unknown [id number] 2.16.84 0.1.918829.3.579.2.1259 1942 Unknown [id number] 2.16.84 0.1.166730.3.579.2.1259 Social History Date Type Detail Facility Start: 10-26-2023 Tobacco smoking stat [facility] Never smoked tobacco [facility] Start: 10-26-2023 Tobacco use and exposure Smokeless tobacco non-user [facility] Start: 03-16-2024 Alcoholic beverage intake Lifetime non-drinker (finding) [facility] Start: 03-07-2024 End: 03-16-2024 History of Social function [facility] Start: 03-07-2024 End: 03-16-2024 Tobacco use panel [facility] Start: 03-31-1941 Sex assigned at Not on file [facility] NEGATED: Highlighted rowStart: NINF History of tobacco use Passive smoker [facility] History of Present illness Narrative 04-15-2024 Vy De Dios, PT - 04/15/2024 12:30 PM EDT Note Date & Type Note Facility 04-15-2024 History of Presen t illness Narrative Physical Therapy Treatment Visit / DISCHARGE Patient Name: Jumana Leal Today's Date: 04/15/2024 Encounter Diagnoses Name Primary? Chronic 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 Yes Visit number: 7 Timed Code Treatment Minutes: 41 minutes Total Treatment Time: 41 minutes Time In: 1223 Time Out: 1308 History: Pt states she has been noticing pain in low back for a few years. Pain is getting worse when getting out of bed and with prolong ambulation. Finding herself having to hold on to things to stabilize herself. Precautions: Left TKA, [place] Subjective: Pt states she has been doing very well. No complaints of pain. Pt states she needs another copy of her exercises; accidentally threw hers away. Pain: 0/10 Objective: PT Evaluation (03/17/2024) LUMBAR SPINE AROM: full flexion without ERP, limited trunk extension and bilateral SB without c/o ERP Joint play: Limited joint mobility lower lumbar region Strength: bilateral hips 3+/5, knees 4-/5 Gait: Increase lateral sway noted during gait Palpation: moderate tenderness with central PA pressure L4 and L5 Special Test: Pain with left hip scour and ANTONIO Functional: TUG without device: 12.39 seconds Neurological: Reflexes: 2 bilateral patellar Myotomes: negative bilateral Dermatomes: negative bilateral Special Test: negative SLUMP testing bilateral LE's, negative clonus Treatment: Education: HEP education with demonstration, Educated on Eval Findings and POC Manual Therapy: () manual distraction, STM, gentle sacral mobs. Passive ROM, Joint mobilization, Soft Tissue Mobilization, Myofascial Release, Muscle Energy Technique, Neural Mobilization, Myofascial Cupping, Dry Needling, IASTM, and Scar mobilization as needed. Therapeutic Exercise: (41 minutes) Strength, Endurance, Flexibility, ROM, HEP, Neural Mobilization, Power, and Core Stability as needed. Reviewed and progressed home program this date with good pt understanding. Goals addressed for discharge. Therapeutic Activity: Exercises to improve dynamic activities, functional tasks, functional mobility to return to prior activity level as needed. Neuromuscular re-education: Balance Training, Muscle Facilitation, Dynamic Stability, Core Stabilization, and Blood Flow Restriction Training (BFRT) as needed. Modalities: Heat, Ice, Electrical Stimulation, Ultrasound, Lumbar Mechanical Traction as needed. Assessment: Pt has completed 7 PT sessions for chronic low back pain and bilateral LE weakness. Pt without complaints of pain at end ranges of trunk ROM. Reporting 0/10 pain. Strength bilateral hips 4/5 with MMT; core strength is good/fair. Back Index Score: 6/50. We will now discharge to home program. Outcome Measure: Back Index: 24/50 Rehab Diagnosis: low back pain; bilateral hip and core weakness; difficulty walking Short Term Goal: To be met in 2 weeks Goal 1: Pt to be instructed in home exercise program. - met Goal 2: Pt to purchase right heel for trial with ambulation. - addressed [facility] Goals: To be met in 10 weeks Goal 1: Pt to report independence and compliance with home program. - met Goal 2: Pt to report pain no greater than 2/10 with function tasks, ADL's, and work related activities. - met Goal 3: Pt to achieve 4/5 strength bilateral hips to assist with functional mobility and ADL's. - met Goal 4: Pt to score no greater than 12/50 on Back Index indicating improved QOL. - met Discharge PT. documented in this encounter [facility] History of Present illness Narrative 04-05-2024 Vy De Dios PT - 04/05/2024 12:30 PM EDT Note Date & Type Note Facility 04-05-2024 History of Presen t illness Narrative Physical Therapy Treatment Visit Patient Name: Jumana Leal Today's Date: 04/05/2024 Encounter Diagnoses Name Primary? Chronic 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 Yes Visit number: 6 Timed Code Treatment Minutes: 42 minutes Total Treatment Time: 50 minutes Time In: 1230 Time Out: 1320 History: Pt states she has been noticing pain in low back for a few years. Pain is getting worse when getting out of bed and with prolong ambulation. Finding herself having to hold on to things to stabilize herself. Precautions: Left TKA, [place] Subjective: Pt states she is doing well. No issues with doing chores at home. States she has not returned to walking for exercises but doing everything out without difficulty. Pain: 0/10 Objective: PT Evaluation (03/17/2024) LUMBAR SPINE AROM: full flexion without ERP, limited trunk extension and bilateral SB without c/o ERP Joint play: Limited joint mobility lower lumbar region Strength: bilateral hips 3+/5, knees 4-/5 Gait: Increase lateral sway noted during gait Palpation: moderate tenderness with central PA pressure L4 and L5 Special Test: Pain with left hip scour and ANTONIO Functional: TUG without device: 12.39 seconds Neurological: Reflexes: 2 bilateral patellar Myotomes: negative bilateral Dermatomes: negative bilateral Special Test: negative SLUMP testing bilateral LE's, negative clonus Treatment: Education: HEP education with demonstration, Educated on Eval Findings and POC Manual Therapy: () manual distraction, STM, gentle sacral mobs. Passive ROM, Joint mobilization, Soft Tissue Mobilization, Myofascial Release, Muscle Energy Technique, Neural Mobilization, Myofascial Cupping, Dry Needling, IASTM, and Scar mobilization as needed. Therapeutic Exercise: (42 minutes) Strength, Endurance, Flexibility, ROM, HEP, Neural Mobilization, Power, and Core Stability as needed. Progressed core strengthening this date. Issued standing tband ex and supine core ex to home program this date. Therapeutic Activity: Exercises to improve dynamic activities, functional tasks, functional mobility to return to prior activity level as needed. Neuromuscular re-education: Balance Training, Muscle Facilitation, Dynamic Stability, Core Stabilization, and Blood Flow Restriction Training (BFRT) as needed. Modalities: HP to lumbar in supine during exercises this date and 8 minutes following. Heat, Ice, Electrical Stimulation, Ultrasound, Lumbar Mechanical Traction as needed. Assessment: Pt has completed 6 PT sessions for chronic low back pain and bilateral LE weakness. Progressed core stabilization exercises this date without complaints of increase pain. Will re-assess in 10 days for possible discharge. Outcome Measure: Back Index: 24/50 Rehab Diagnosis: low back pain; bilateral hip and core weakness; difficulty walking Short Term Goal: To be met in 2 weeks Goal 1: Pt to be instructed in home exercise program. Goal 2: Pt to purchase right heel for trial with ambulation. [facility] Goals: To be met in 10 weeks Goal 1: Pt to report independence and compliance with home program. Goal 2: Pt to report pain no greater than 2/10 with function tasks, ADL's, and work related activities. Goal 3: Pt to achieve 4/5 strength bilateral hips to assist with functional mobility and ADL's. Goal 4: Pt to score no greater than 12/50 on Back Index indicating improved QOL. Pt will benefit from skilled PT for 2x/week from 03/17/2024 to 05/26/2024 to address the above impairments. I hereby deem this POC medically necessary. Please sign below. Date: documented in this encounter [facility] Evaluation note Note Date & Type Note Facility Evaluation note Diagnosis Chronic 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- Primary documented in this encounter [facility] Healthcare Evaluation note Note Date & Type Note Facility Evaluation note Diagnosis Chronic 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- Primary documented in this encounter [facility] Evaluation note Note Date & Type Note Facility Evaluation note Diagnosis Primary hypertension (CMS/HCC)- Primary Unspecified essential hypertension Type 2 diabetes mellitus without complication, without long-term current use of insulin (CMS/HCC) Other hyperlipidemia (CMS/HCC) Osteopenia of multiple sites 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 Primary hypertension (CMS/HCC) Unspecified essential hypertension Type 2 diabetes mellitus without complication, without long-term current use of insulin (CMS/HCC) Primary hypertension (CMS/HCC)- Primary Unspecified essential hypertension Type 2 diabetes mellitus without complication, without long-term current use of insulin (CMS/HCC) Gastroesophageal reflux disease without esophagitis Esophageal reflux Chronic 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 Neoplasm of uncertain behavior of skin Chronic 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- Primary documented in this encounter [facility] Reason for visit Narrative Rehabilitation - Outpatient (Routine) - Closed Note Date & Type Note Facility Reason for visit Narrative Specialty Diagnoses / Procedures Referred By Contac t Referred To Contact Physical Therapy Diagnoses Chronic 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 Procedures [place] OFFICE/OUTPATIENT NEW HIGH MDM 60 MINUTES Marybeth Walsh NP [address] [place] [address] Phone: tel: fax: [facility] Referral ID Status Reason Start Date Expiration Date V isits Requested Visits Authorized [id number] Closed Specialty Services Required 03/07/2024 09/03/2024 25 30 [facility] Summary Purpose Family History No Family History Records FoundNo Family History Records FoundNo Family History Records FoundNo Family History Records Found Advance Directives No Advanced Directives Records FoundNo Advanced Directives Records FoundNo Advanced Directives Records FoundNo Advanced Directives Records Found Additional Source Comments INFORMATION SOURCE (unrecogn ized section and content) DATE CREATED AUTHOR 01/31/2022 [facility] DATE CREATED AUTHOR AUTHOR'S ORGANIZ ATION 05/30/2022 [facility] DATE CREATED AUTHOR AUTHOR'S ORGANIZ ATION 12/17/2023 [facility] DATE CREATED AUTHOR AUTHOR'S ORGANIZ ATION 04/18/2024 [facility] EPIC Care Teams (unrecognized sec tion and content) Senior Nuclear Medicine Technologist Relationship Specialty Start Date End Date Yannick Bills MD [address] [place] [phone] PCP - General Family Medicine 02/10/24 Marybeth Walsh NP [address] [place] [address] Nurse Practitioner Family Medicine 02/10/24 Senior Nuclear Medicine Technologist Relationship Specialty Start Date End Date Yannick Bills MD [address] [place] [address] PCP - General Family Medicine 02/10/24 Marybeth Walsh NP [address] [place] [phone] Nurse Practitioner Family Medicine 02/10/24 Senior Nuclear Medicine Technologist Relationship Specialty Start Date End Date Yannick Bills MD [address] [place] [phone] PCP - General Family Medicine 02/10/24 Marybeth Walsh NP [address] [place] [phone] Nurse Practitioner Family Medicine 02/10/24 Senior Nuclear Medicine Technologist Relationship Specialty Start Date End Date Yannick iBlls MD [address] [place] [phone] PCP - General Family Medicine 02/10/24 Marybeth Walsh NP [address] [place] [phone] Nurse Practitioner Family Medicine 02/10/24 Senior Nuclear Medicine Technologist Relationship Specialty Start Date End Date Yannick Bills MD [address] [place] [phone] PCP - General Family Medicine 02/10/24 Marybeth Walsh NP [address] [place] [phone] Nurse Practitioner Family Medicine 02/10/24 Reason for Visit (unrecogniz ed section and content) Specialty Diagnoses / Procedures Referred By Contac t Referred To Contact Physical Therapy Diagnoses Chronic 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 Procedures [place] OFFICE/OUTPATIENT NEW HIGH MDM 60 MINUTES Marybeth Walsh ABIODUN [address] [facility] [place] [address] [facility] Referral ID Status Reason Start Date Expiration Date Visits Requested Visits Authorized [id number] Authorized Specialty Services Required 03/07/2024 09/03/2024 25 30 FOR RECORDS PERTAINING TO PATIENTS WHO ARE OR HAVE BEEN ENROLLED IN A CHEMICAL DEPENDENCY/SUBSTANCEABUSE PROGRAM, SOME INFORMATION MAY BE OMITTED. This clinical summary was aggregated from multiple sources. Caution should be exercised in using it in the provision of clinical care. This summary normalizes information from multiple sources, and as a consequence, information in this document may materially change the coding, format and clinical context of patient data. In addition, data may be omitted in some cases. CLINICAL DECISIONS SHOULD BE BASED ON THE PRIMARY CLINICAL RECORDS. [facility] [email or web address] [facility]. provides no warranty or guarantee of the accuracy or completeness of information in this document.
[2024-04-27 08:52] LABS: Basophils Percent Auto 0.7 % (0.2-2.0); Hematocrit 33.8 % (36.0-48.0); Hemoglobin 11.4 g/dL (12.0-16.0); Immature Granulocytes Abs Auto 0.01 10^3/uL (0.00-0.03); Immature Granulocytes Pct Auto 0.2 % (0.0-0.5); Lymphocytes Absolute Auto 0.9 10^3/uL (1.2-3.8); Lymphocytes Percent Auto 22.4 % (20.5-60.0); Mean Corpuscular HGB Conc 33.7 g/dL (29.9-35.2); Mean Corpuscular Hemoglobin 31.3 pg (26.7-34.0); Mean Corpuscular Volume 92.9 fL (81.0-99.0); Mean Platelet Volume 9.2 fL (9.5-13.5); Monocytes Absolute Auto 0.4 10^3/uL (0.3-0.8); Monocytes Percent Auto 8.6 % (1.7-12.0); Neutrophils Absolute Auto 2.8 10^3/uL (1.4-6.5); Neutrophils Percent Auto 67.1 % (43.0-75.0); Platelet Count 257 10^3/uL (150-450); Red Blood Count 3.64 10^6/uL (4.20-5.40); Red Cell Distribution Width 13.5 % (11.0-15.0); White Blood Count 4.2 10^3/uL (4.0-11.0)
[2024-04-27 09:16] LABS: Anion Gap 13.9; Carbon Dioxide 25.6 mmol/L (21.0-32.0); Chloride 99 mmol/L (98-107); Glucose 102 mg/dL (74-106); Potassium 4.5 mmol/L (3.5-5.1); Sodium 134 mmol/L (136-145)
[2024-04-27 09:17] LABS: Alanine Aminotransferase 27 U/L (14-59); Albumin Globulin Ratio 0.9; Albumin Level 3.6 g/dL (3.4-5.0); Alkaline Phosphatase 57 U/L (46-116); Aspartate Amino Transferase 27 U/L (15-37); BUN Creatinine Ratio 15.7; Bilirubin Total 0.6 mg/dL (0.2-1.0); Calcium 9.1 mg/dL (8.5-10.1); Estimated GFR (African America >60 (>=60 mL/min/1.73m^2); Estimated GFR (Non-African Ame >60 (>=60 mL/min/1.73m^2); Globulin 3.8 g/dL; Total Protein 7.4 g/dL (6.4-8.2)
[2024-04-27 09:43] LABS: Creatinine Urine Random 124.75 mg/dL (20.00-300.00)
[2024-04-27 11:53] LABS: Estimated Average Glucose 126 mg/dL
== END 2024-04-27 08:06 | disposition home or self-care (01) ==
LOC: LAB 08:08
DX: I10 Essential (primary) hypertension (principal); E11.9 Type 2 diabetes mellitus without complications
CPT/HCPCS: 36415; 80053; 82043; 82570; 83036; 85025

== ENCOUNTER 2024-04-28 08:03 | Outpatient (OUT) | payer MEDICARE, SELFPAY ==
--- OUTSIDE RECORDS SUMMARY | 2024-04-28 08:08 | XMS_ITS | CCD ---
Author Organization [facility] Care Team Providers Care Exchange Trouble Shooter Name Role Phone FAWWAD, GARCIA H Attending [...] Negar CISNEROS, Yannick Primary Care Provider Walsh SHELLFISH BED WORKER, Marybeth Unavailable JANELLE, GARCIA Attending Unavailable FAWWAD, [...] reactions to drug (disorder) 0 [facility] (10 sources) Honey bee venom Propensity to adverse reactions 0 [facility] Medications Current Medications Medication Drug Class(es) Dates Sig (Normalized) Sig (Original) amLODIPine 5 mg oral tablet (10 sources) Dihydropyridine Calcium Channel Kamryn Start: 4 End: 4 take 1 tablet by mouth in the morning amLODIPine (Norvasc) 5 MG tablet Indications: Primary hypertension (CMS/HCC) Take 1 tablet (5 mg) by mouth in the morning. 90 tablet 1 11/25/2023 05/23/2024 Active atorvastatin 20 mg oral tablet (10 sources) HMG-CoA Reductase Inhibitor Start: 4 End: 5 take 1 tablet by mouth once daily atorvastatin (Lipitor) 20 MG tablet Indications: Other hyperlipidemia (CMS/HCC) Take 1 tablet (20 mg) by mouth Daily 30 tablet 11 03/28/2024 03/28/2025 Active Blood Glucose Monitoring Suppl (True Metrix Meter) w/Device kit (10 sources) Blood Glucose Monitoring Suppl (True Metrix Meter) w/Device kit Active calcium carbonate 1500 mg oral tablet (10 sources) take 1 tablet by mouth in the morning calcium carbonate 1500 (600 Ca) MG tablet Take 1,500 mg by mouth in the morning and 1,500 mg in the evening. Take with meals. Active cholecalciferol 0.05 mg oral capsule (10 sources) Vitamin D take 1 capsule by mouth in the morning cholecalciferol (Vitamin D-3) 50 MCG (2000 UT) capsule Take 2,000 Units by mouth in the morning. 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 Take before meals. 90 tablet 1 04/26/2024 10/23/2024 Active lisinopril 10 mg oral tablet (10 sources) Angiotensin Converting Enzyme Inhibitor Start: 4 End: 4 take 1 tablet by mouth once daily lisinopril 10 MG tablet Indications: Primary hypertension (CMS/HCC) Take 1 tablet (10 mg) by mouth 1 (one) time each day at the same time 90 tablet 1 11/03/2023 05/01/2024 Active loratadine 10 mg oral tablet (10 sources) take 1 tablet by mouth in the morning loratadine (Claritin) 10 MG tablet Take 10 mg by mouth in the morning. Active metFORMIN hydrochloride 500 mg oral tablet (10 sources) Biguanide Start: 4 take 1 tablet by mouth at mealtime metFORMIN (Glucophage) 500 MG tablet Indications: Type 2 diabetes mellitus without complication, without long-term current use of insulin (CMS/HCC) Take 1 tablet (500 mg) by mouth in the morning. Take with meals. 90 tablet 2 03/07/2024 Active omeprazole 20 mg delayed release oral capsule (10 sources) Proton Pump Inhibitor Start: 4 End: 5 take 1 capsule by mouth once daily omeprazole (PriLOSEC) [address] capsule Indications: Gastroesophageal reflux disease without esophagitis Take 1 capsule (20 mg) by mouth 1 (one) time each day at the same time 90 capsule 1 01/11/2024 07/09/2024 Active triamcinolone acetonide 0.055 mg/actuat metered dose nasal spray (10 sources) Corticosteroid take 2 spray(s) nasal route in the morning triamcinolone (Nasacort) 55 MCG/ACT nasal inhaler Administer 2 sprays into each nostril in the morning. Active Problems Active Problems Problem Classification Problem Date Documented Date Episodic/Chronic Deficiency and other anemia (4 sources) Anemia, unspecified; Translations: [ANEMIA UNSPECIFIED] Onset: 03-25-2022 Episodic Deficiency and other anemia (1 source) Anemia; Translations: [Anemia, unspecified] 04-27-2024 Episodic Diabetes mellitus without complication (14 sources) Type 2 diabetes mellitus without complications; Translations: [Type 2 diabetes mellitus without complication] Onset: 12-16-2021 Chronic Disorders of lipid metabolism (11 sources) Hyperlipidemia, unspecified; Translations: [Hyperlipidemia] Onset: 12-18-2021 07-23-2023 Chronic Esophageal disorders (10 sources) Gastroesophageal reflux disease without esophagitis; Translations: [Gastro-esophageal reflux disease without esophagitis] Onset: 07-23-2023 07-23-2023 Chronic Essential hypertension (13 sources) Essential (primary) hypertension; Translations: [Hypertensive disorder] Onset: 12-18-2021 07-23-2023 Chronic Neoplasms of unspecified nature or uncertain behavior (10 sources) Neoplasm of uncertain behavior of skin; Translations: [Neoplasm of uncertain behavior of skin] Onset: 03-07-2024 03-07-2024 Episodic Osteoarthritis (10 sources) Osteoarthritis of left knee joint; Translations: [Unilateral primary osteoarthritis, left knee] Onset: 07-23-2023 07-23-2023 Chronic Other connective tissue disease (10 sources) History of total knee arthroplasty; Translations: [Presence of left artificial knee joint] Onset: 07-23-2023 07-23-2023 Chronic Spondylosis; intervertebral disc disorders; other back problems (14 sources) Chronic back pain ; Translations: [Dorsalgia, unspecified] 03-07-2024 Episodic Thyroid disorders (12 sources) Hypothyroidism, unspecified; Translations: [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 Basophils/100 WBC (Bld) 0.7 % 0.2 - 2.0 % [facility] Eosinophils/100 WBC (Bld) 1 % 0.9 - 7.0 % [facility] Erythrocyte distribution width (RBC) [Ratio] 13.5 % 11.0 - 15.0 % [facility] Hematocrit (Bld) [Volume fraction] 33.8 % Low 36.0 - 48.0 % [facility] Hemoglobin (Bld) [Mass/Vol] 11.4 g/dL Low 12.0 - 16.0 g/dL [facility] IMMATURE GRANULOCYTES ABS AUTO 0.01 [facility] Immature granulocytes/100 WBC (Bld) 0.2 % 0.0 - 0.5 % [facility] Interpretation and review of laboratory results Abnormal [facility] LYMPHOCYTES ABSOLUTE AUTO 0.9 Low [facility] Lymphocytes/100 WBC (Bld) 22.4 % 20.5 - 60.0 % [facility] MCH (RBC) [Entitic mass] 31.3 pg 26.7 - 34.0 pg [facility] MCHC (RBC) [Mass/Vol] 33.7 g/dL 29.9 - 35.2 g/dL [facility] MCV (RBC) [Entitic vol] 92.9 fL 81.0 - 99.0 fL [facility] MONOCYTES ABSOLUTE AUTO 0.4 [facility] Monocytes/100 WBC (Bld) 8.6 % 1.7 - 12.0 % [facility] NEUTROPHILS ABSOLUTE AUTO 2.8 [facility] Neutrophils/100 WBC (Bld) 67.1 % 43.0 - 75.0 % [facility] Platelet mean volume (Bld) [Entitic vol] 9.2 fL Low 9.5 - 13.5 fL [facility] EO # 0 [facility] PLT 257 [facility] RBC 3.64 Low [facility] WBC 4.2 [facility] DEXA SCAN CENTRAL SKELETALon 06-25-2023 DEXA SCAN [...] cannot be determined by BMD measurement alone. 4 Finalized by Braulio Ferrer MD on 06/25/2023 1:23 PM Normal [facility] MAMM SCREENING BILATERAL W C [employer] professional 06-25-2023 MAMM SCREENING BILATERAL W CAD MAMM [...] Recommendation: Routine screening mammogram in 1 year 2 Finalized by Mian Fleming DO on 06/25/2023 1:32 PM 1 b MAMM 1 YR Normal [facility] TRANSFERRINon 03-27-2022 Transferrin [Mass/Vol] 254 mg/dL Normal 192-364 [facility] Comment on above: Performed By: #### T RANSFR #### [facility] [address] [place] [address] Dr. Esperanza Sheets CBC AUTO DIFFon 03-25-2022 BASO # 0.0 103/ul Normal 0.0-0.1 [facility] Comment on above: Performed By: #### C BC #### [facility] [address] [place] [address] Dr. Esperanza Sheets Basophils/100 WBC (Bld) 0.8 % Normal 0.2-2.0 [facility] Comment on above: Performed By: #### C BC #### [facility] [address] [place] [address] Dr. Esperanza Sheets EO # 0.1 103/ul Normal 0.0-0.7 [facility] Comment on above: Performed By: #### C BC #### [facility] [address] [place] [address] Dr. Esperanza Sheets Eosinophils/100 WBC (Bld) 1.2 % Normal 0.9-7.0 [facility] Comment on above: Performed By: #### C BC #### [facility] [address] [place] [address] Dr. Esperanza Sheets Erythrocyte distribution width (RBC) [Ratio] 14.4 % Normal 11.0-15.0 [facility] Comment on above: Performed By: #### C BC #### [facility] [address] [place] [address] Dr. Esperanza Sheets Hematocrit (Bld) [Volume fraction] 33.5 % Critically low 36.0-48.0 [facility] Comment on above: Performed By: #### C BC #### [facility] [address] [place] [address] Dr. Esperanza Sheets Hemoglobin (Bld) [Mass/Vol] 10.7 g/dL Critically low 12.0-16.0 [facility] Comment on above: Performed By: #### C BC #### [facility] [address] [place] [address] Dr. Esperanza Sheets IG # 0.02 10e3/ul Normal 0.00-0.03 [facility] Comment on above: Performed By: #### C BC #### [facility] [address] [place] [address] Dr. Esperanza Sheets IG % 0.4 % Normal 0.0-0.5 [facility] Comment on above: Performed By: #### C BC #### [facility] [address] [place] [address] Dr. Esperanza Sheets LYMPH # 1.3 103/ul Normal 1.2-3.8 [facility] Comment on above: Performed By: #### C BC #### [facility] [address] [place] [address] Dr. Esperanza Sheets Lymphocytes/100 WBC (Bld) 24.2 % Normal 20.5-60.0 [facility] Comment on above: Performed By: #### C BC #### [facility] [address] [place] [address] Dr. Esperanza Sheets MANUAL DIFF REQ NO Normal [facility] Comment on above: Performed By: #### C BC #### [facility] [address] [place] [address] Dr. Esperanza Sheets MCH (RBC) [Entitic mass] 30.3 pg Normal 26.7-34.0 [facility] Comment on above: Performed By: #### C BC #### [facility] [address] [place] [address] Dr. Esperanza Sheets MCHC (RBC) [Mass/Vol] 31.9 g/dL Normal 29.9-35.2 [facility] Comment on above: Performed By: #### C BC #### [facility] [address] [place] [address] Dr. Esperanza Sheets MCV (RBC) [Entitic vol] 94.9 fL Normal 81.0-99.0 [facility] Comment on above: Performed By: #### C BC #### [facility] [address] [place] [address] Dr. Esperanza Sheets MONO # 0.3 103/ul Normal 0.3-0.8 [facility] Comment on above: Performed By: #### C BC #### [facility] [address] [address] [address] Esperanza Sheets Monocytes/100 WBC (Bld) 6.5 % Normal 1.7-12.0 [facility] Comment on above: Performed By: #### C BC #### [facility] [address] [address] [address] Esperanza Sheets NEUT # 3.5 103/ul Normal 1.4-6.5 [facility] Comment on above: Performed By: #### C BC #### [facility] [address] [place] [address] Dr. Esperanza Sheets Neutrophils/100 WBC (Bld) 66.9 % Normal 43.0-75.0 [facility] Comment on above: Performed By: #### C BC #### [facility] [address] [place] [address] Dr. Esperanza Sheets Platelet mean volume (Bld) [Entitic vol] 9.8 fL Normal 9.5-13.5 [facility] Comment on above: Performed By: #### C BC #### [facility] [address] [place] [address] Dr. Esperanza Sheets PLT 265 103/ul Normal 150-450 [facility] Comment on above: Performed By: #### C BC #### [facility] [address] [place] [address] Dr. Esperanza Sheets RBC 3.53 106/ul Critically low 4.20-5.40 [facility] Comment on above: Performed By: #### C BC #### [facility] [address] [place] [address] Dr. Esperanza Sheets WBC 5.2 103/ul Normal 4.0-11.0 [facility] Comment on above: Performed By: #### C BC #### [facility] [address] [place] [address] Dr. Esperanza Sheets FERRITINon 03-25-2022 Ferritin [Mass/Vol] 63.0 ng/mL Normal 8.0-252.0 [facility] Comment on above: Performed By: #### F ETIBC, FERR #### [facility] [address] [address] [address] Esperanza Sheets IRON AND TIBCon 03-25-2022 % SATURATION 13.7 % Normal [facility] Comment on above: Performed By: #### F ETIBC, FERR #### [facility] [address] [place] [address] Dr. Esperanza Sheets Iron [Mass/Vol] 39.0 ug/dL Critically low 50.0-170.0 [facility] Comment on above: Performed By: #### F ETIBC, FERR #### [facility] [address] [place] [address] Dr. Esperanza Sheets TIBC DIRECT 285.0 ug/dL Normal 250.0-450.0 [facility] Comment on above: Performed By: #### F ETIBC, FERR #### [facility] [address] [place] [address] Dr. Esperanza Sheets ECHOCARDIO M/2D COMPLETEon 0 12-27-2021 ECHOCARDIO M/2D COMPLETE Patient: JUMANA LEAL Exam Date: 12/27/2021 : 1940 Gender:F Ordering : SHAIKH Jesus LUIS . Admission #: [id number] Family : Order #: [id number] CLICK HERE TO VIEW EXAM ECHOCARDIOGRAM REPORT [...] Tejada M.D. on 12/27/2021 at 18:40 Normal [facility] XR femur BIon 12-18-2021 XR femur BI [facility] [place] [address] [place] [address] XRay Report Signed Patient: Jumana Leal MR#: [id number] : 1940 Acct:[id number] Age/Sex: 81 / F ADM Date: 12/18/21 Loc: ICXD Room: Type: [facility] Attending Dr: Emiliano Hui PA-C Copies to: Emiliano Hui PA-C Ordering Provider: Emiliano Hui PA-C Date of Service: 12/18/21 XR/XR tibia/fibula BI: TKA ([id number]) XR/XR femur BI: TKA LEFT KNEE Bilateral [...] Yusuf Jr., M.D.12/18/2021 3:28 PM Dictation Location: [place] [address] Transcribed By: [facility] 12/18/211527 Dictated By: Ivan Yusuf Jr, MD 12/18/211521 Signed By: 12/18/211527 [facility] CBC AUTO DIFFon 12-16-2021 BASO # 0.0 103/ul Normal 0.0-0.1 [facility] Comment on above: Performed By: #### C BC #### [facility] [address] [place] [address] Dr. Esperanza Sheets Basophils/100 WBC (Bld) 0.6 % Normal 0.2-2.0 [facility] Comment on above: Performed By: #### C BC #### [facility] [address] [place] [address] Dr. Esperanza Sheets EO # 0.1 103/ul Normal 0.0-0.7 [facility] Comment on above: Performed By: #### C BC #### [facility] [address] [address] [address] Esperanza Sheets Eosinophils/100 WBC (Bld) 1.5 % Normal 0.9-7.0 [facility] Comment on above: Performed By: #### C BC #### [facility] [address] [place] [address] Dr. Esperanza Sheets Erythrocyte distribution width (RBC) [Ratio] 13.9 % Normal 11.0-15.0 [facility] Comment on above: Performed By: #### C BC #### [facility] [address] [place] [address] Dr. Esperanza Sheets Hematocrit (Bld) [Volume fraction] 34.8 % Critically low 36.0-48.0 [facility] Comment on above: Performed By: #### C BC #### [facility] [address] [place] [address] Dr. Esperanza Sheets Hemoglobin (Bld) [Mass/Vol] 11.4 g/dL Critically low 12.0-16.0 [facility] Comment on above: Performed By: #### C BC #### [facility] [address] [place] [address] Dr. Esperanza Sheets IG # 0.02 10e3/ul Normal 0.00-0.03 [facility] Comment on above: Performed By: #### C BC #### [facility] [address] [place] [address] Dr. Esperanza Sheets IG % 0.4 % Normal 0.0-0.5 [facility] Comment on above: Performed By: #### C BC #### [facility] [address] [place] [address] Dr. Esperanza Sheets LYMPH # 2.0 103/ul Normal 1.2-3.8 [facility] Comment on above: Performed By: #### C BC #### [facility] [address] [place] [address] Dr. Esperanza Sheets Lymphocytes/100 WBC (Bld) 37.6 % Normal 20.5-60.0 [facility] Comment on above: Performed By: #### C BC #### [facility] [address] [place] [address] Dr. Esperanza Sheets MANUAL DIFF REQ NO Normal [facility] Comment on above: Performed By: #### C BC #### [facility] [address] [place] [address] Dr. Esperanza Sheets MCH (RBC) [Entitic mass] 31.3 pg Normal 26.7-34.0 [facility] Comment on above: Performed By: #### C BC #### [facility] [address] [place] [address] Dr. Esperanza Sheets MCHC (RBC) [Mass/Vol] 32.8 g/dL Normal 29.9-35.2 [facility] Comment on above: Performed By: #### C BC #### [facility] [address] [place] [address] Dr. Esperanza Sheets MCV (RBC) [Entitic vol] 95.6 fL Normal 81.0-99.0 [facility] Comment on above: Performed By: #### C BC #### [facility] [address] [place] [address] Dr. Esperanza Sheets MONO # 0.3 103/ul Normal 0.3-0.8 [facility] Comment on above: Performed By: #### C BC #### [facility] [address] [place] [address] Dr. Esperanza Sheets Monocytes/100 WBC (Bld) 6.6 % Normal 1.7-12.0 [facility] Comment on above: Performed By: #### C BC #### [facility] [address] [address] [address] Esperanza Sheets NEUT # 2.8 103/ul Normal 1.4-6.5 [facility] Comment on above: Performed By: #### C BC #### [facility] [address] [place] [address] Dr. Esperanza Sheets Neutrophils/100 WBC (Bld) 53.3 % Normal 43.0-75.0 [facility] Comment on above: Performed By: #### C BC #### [facility] [address] [place] [address] Dr. Esperanza Sheets Platelet mean volume (Bld) [Entitic vol] 9.8 fL Normal 9.5-13.5 [facility] Comment on above: Performed By: #### C BC #### [facility] [address] [place] [address] Dr. Esperanza Sheets PLT 274 103/ul Normal 150-450 [facility] Comment on above: Performed By: #### C BC #### [facility] [address] [place] [address] Dr. Esperanza Sheets RBC 3.64 106/ul Critically low 4.20-5.40 [facility] Comment on above: Performed By: #### C BC #### [facility] [address] [place] [address] Dr. Esperanza Sheets WBC 5.2 103/ul Normal 4.0-11.0 [facility] Comment on above: Performed By: #### C BC #### [facility] [address] [place] [address] Dr. Esperanza Sheets GLYCOHEMOGLOBIN A1Con 2021 ADA RECOMMENDATION SEE BELOW Normal [facility] Comment on above: Result Comment: ADA RECOMMENDED LIMIT 4.0 - 6.0 ADA THERAPEUTIC TARGET < 7.0 ACTION SUGGESTED > 7.0 Performed By: #### A 1C #### [facility] [address] [address] [address] Esperanza Sheets Glucose [Mass/Vol] 128 mg/dL Normal [facility] Comment on above: Performed By: #### A 1C #### [facility] [address] [address] [address] Esperanza Sheets HbA1c (Bld) [Mass fraction] 6.1 % Normal 4.5-6.2 [facility] Comment on above: Performed By: #### A 1C #### [facility] [address] [place] [address] Dr. Esperanza Sheets LIPID PROFILEon 12-16-2021 CHOL-HDL RATIO NORM SEE BELOW Normal [facility] Comment on above: Result Comment: 3.3 - 4.4 LOW RISK 4.4 - 7.1 AVERAGE RISK 7.1 - 11.0 MODERATE RISK >11.0 HIGH RISK Performed By: #### L IPID, CMP, TSH #### [facility] [address] [place] [address] Dr. Esperanza Sheets Cholesterol [Mass/Vol] 159 mg/dL Normal <=200 [facility] Comment on above: Performed By: #### L IPID, CMP, TSH #### [facility] [address] [place] [address] Dr. Esperanza Sheets Cholesterol in HDL [Mass/Vol] 91 mg/dL Critically high 40-60 [facility] Comment on above: Performed By: #### L IPID, CMP, TSH #### [facility] [address] [address] [address] Esperanza Sheets Cholesterol in LDL [Mass/Vol] 41.8 mg/dL Normal [facility] Comment on above: Performed By: #### L IPID, CMP, TSH #### [facility] [address] [address] [address] Esperanza Sheets Cholesterol.total/Cho lesterol in HDL [Mass ratio] 1.7 {ratio} Normal [facility] Comment on above: Performed By: #### L IPID, CMP, TSH #### [facility] [address] [address] [address] Esperanza Sheets HDL NORMAL > or = 60 mg/dl - LOW CARDIOVASCULAR RISK <40 mg/dl - HIGH CARDIOVASCULAR RISK Normal [facility] Comment on above: Performed By: #### L IPID, CMP, TSH #### [facility] [address] [address] [address] Esperanza Sheets LDL CALC NORMAL SEE BELOW Normal [facility] Comment on above: Result Comment: <100 mg/dl OPTIMAL 100 - 129 mg/dl NEAR OR ABOVE OPTIMAL 130 - 159 mg/dl BORDERLINE HIGH 160 - 189 mg/dl HIGH >190 mg/dl VERY HIGH Performed By: #### L IPID, CMP, TSH #### [facility] [address] [address] [address] Esperanza Sheets Triglyceride [Mass/Vol] 131 mg/dL Normal <=150 [facility] Comment on above: Performed By: #### L IPID, CMP, TSH #### [facility] [address] [address] [address] Esperanza Sheets VLDL CALC 26.2 mg/dL Normal [facility] Comment on above: Performed By: #### L IPID, CMP, TSH #### [facility] [address] [address] [address] Esperanza Sheets PROF 14(COMP METB)on 022 Albumin [Mass/Vol] 3.8 g/dL Normal 3.4-5.[address] [facility] Comment on above: Performed By: #### L IPID, CMP, TSH #### [facility] [address] [address] [address] Esperanza Sheets Albumin/Globulin [Mass ratio] 1.0 {ratio} Normal [facility] Comment on above: Performed By: #### L IPID, CMP, TSH #### [facility] [address] [address] [address] Esperanza Sheets ALP [Catalytic activity/Vol] 56 U/L Normal 46-116 [facility] Comment on above: Performed By: #### L IPID, CMP, TSH #### [facility] [address] [address] [address] Esperanza Sheets ALT [Catalytic activity/Vol] 39 U/L Normal 14-59 [facility] Comment on above: Performed By: #### L IPID, CMP, TSH #### [facility] [address] [address] [address] Esperanza Sheets Anion gap [Moles/Vol] 14.4 mmol/L Normal [facility] Comment on above: Performed By: #### L IPID, CMP, TSH #### [facility] [address] [address] [address] Esperanza Sheets AST [Catalytic activity/Vol] 28 U/L Normal 15-37 [facility] Comment on above: Performed By: #### L IPID, CMP, TSH #### [facility] [address] [address] [address] Esperanza Sheets Bilirubin [Mass/Vol] 0.4 mg/dL Normal 0.2-1.0 [facility] Comment on above: Performed By: #### L IPID, CMP, TSH #### [facility] [address] [address] [address] Esperanza Sheets Calcium [Mass/Vol] 9.1 mg/dL Normal 8.5-10.[address] [facility] Comment on above: Performed By: #### L IPID, CMP, TSH #### [facility] [address] [address] [address] Esperanza Sheets Chloride [Moles/Vol] 100 mmol/L Normal 98-107 [facility] Comment on above: Performed By: #### L IPID, CMP, TSH #### [facility] [address] [address] [address] Esperanza Sheets CO2 [Moles/Vol] 25.6 mmol/L Normal 21.0-32.0 [facility] Comment on above: Performed By: #### L IPID, CMP, TSH #### [facility] [address] [address] [address] Esperanza Sheets Creatinine [Mass/Vol] 0.83 mg/dL Normal 0.55-1.02 [facility] Comment on above: Performed By: #### L IPID, CMP, TSH #### [facility] [address] [address] [address] Esperanza Sheets EGFR-AF EQUATORIAL GUINEAN >60 Normal >=60 [facility] Comment on above: Performed By: #### L IPID, CMP, TSH #### [facility] [address] [address] [address] Esperanza Sheets EGFR-NON AF EQUATORIAL GUINEAN >60 Normal >=60 [facility] Comment on above: Performed By: #### L IPID, CMP, TSH #### [facility] [address] [place] [address] Dr. Esperanza Sheets Globulin (S) [Mass/Vol] 3.7 g/dL Normal [facility] Comment on above: Performed By: #### L IPID, CMP, TSH #### [facility] [address] [place] [address] Dr. Esperanza Sheets Glucose [Mass/Vol] 148 mg/dL Critically high 74-106 [facility] Comment on above: Performed By: #### L IPID, CMP, TSH #### [facility] [address] [place] [address] Dr. Esperanza Sheets Potassium [Moles/Vol] 4.0 mmol/L Normal 3.5-5.1 [facility] Comment on above: Performed By: #### L IPID, CMP, TSH #### [facility] [address] [place] [address] Dr. Esperanza Sheets Protein [Mass/Vol] 7.5 g/dL Normal 6.4-8.2 [facility] Comment on above: Performed By: #### L IPID, CMP, TSH #### [facility] [address] [place] [address] Dr. Esperanza Sheets Sodium [Moles/Vol] 136 mmol/L Normal 136-[address] [facility] Comment on above: Performed By: #### L IPID, CMP, TSH #### [facility] [address] [place] [address] Dr. Esperanza Sheets Urea nitrogen [Mass/Vol] 11.0 mg/dL Normal 7.0-18.0 [facility] Comment on above: Performed By: #### L IPID, CMP, TSH #### [facility] [address] [address] [address] Esperanza Sheets Urea nitrogen/Creatinine [Mass ratio] 13.3 mg/mg Normal [facility] Comment on above: Performed By: #### L IPID, CMP, TSH #### [facility] [address] [address] [address] Esperanza Sheets TSHon 12-16-2021 TSH 2.363 uIU/mL Normal 0.358-3.740 [facility] Comment on above: Performed By: #### L IPID, CMP, TSH #### [facility] [address] [address] [address] Esperanza Sheets Encounters Encounter Date Encounter Type Care Provider Facility Start: 04-27-2024 End: 04-27-2024 Clinisync Result Encounter Marybeth Walsh [employer]LLF[employer] WORKER Work Phone: [facility] Unsolicited Start: 04-27-2024 End: 04-27-2024 Clinisync Result Encounter Marybeth Walsh [employer] WORKER Work Phone: [facility] Unsolicited Start: 04-27-2024 End: 04-27-2024 Orders Only Marybeth Walsh [employer] WORKER Work Phone: [facility] Comment on above: Anemia, unspecified type (Primary Dx) Start: 04-26-2024 End: 04-26-2024 Refill Marybeth Walsh [employer] WORKER Work Phone: [facility] Comment on above: 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) Start: 04-15-2024 End: 04-15-2024 ambulatory Vy De [...] 04-01-2024 End: 04-01-2024 Bamboo flowsheet Epi Felix PRINT SHOP ASSISTANT [facility] Start: 04-01-2024 End: 04-01-2024 Bamboo flowsheet Epi Felix [employer] ASSISTANT [facility] Start: 04-01-2024 End: 04-01-2024 ambulatory Epi Felix [employer] ASSISTANT [facility] Comment on above: Chronic 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 (Primary Dx) Start: 03-29-2024 End: 03-29-2024 Bamboo flowsheet Epi Felix [employer] SHOP ASSISTANT [facility] Start: 03-29-2024 End: 03-29-2024 Bamboo flowsheet Epi Felix [employer] SHOP ASSISTANT [facility] Start: 03-29-2024 End: 03-29-2024 ambulatory Epi Felix [employer] ASSISTANT [facility] Comment on above: Chronic 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 (Primary Dx) Start: 03-25-2024 End: 03-25-2024 ambulatory EPI FELIX Not Available Start: 03-23-2024 End: 03-23-2024 ambulatory EPI FELIX Not Available Start: 03-17-2024 End: 03-17-2024 ambulatory VY DE DIOS Not Available Start: 03-16-2024 End: 03-16-2024 ambulatory BRANDEE LANIER Not Available Start: 03-07-2024 End: 03-07-2024 ambulatory MARYBETH WALSH Not Available Start: 12-15-2023 End: 12-15-2023 Emergency department patient visit GARCIA JANELLE [facility] Start: 10-26-2023 End: 10-26-2023 ambulatory JANELLE Not Available Start: 07-23-2023 End: 07-23-2023 ambulatory GARCIA FAWWAD Not Available Start: 06-25-2023 End: 06-25-2023 ambulatory SHAIKH JANELLE [facility] Start: 03-25-2022 End: 03-26-2022 ambulatory SHAIKH Yohannes LUIS Facility:[facility]1 Start: 01-02-2022 Encounter for preprocedural cardiovascular examination SHAIKH Yohannes LUIS [facility] Start: 12-27-2021 End: 12-28-2021 ambulatory SHAIKH Yohannes LUIS Facility:[facility] Start: 12-27-2021 End: 12-28-2021 Encounter for preprocedural cardiovascular examination SHAIKH Yohannes LUIS Facility:[facility] Start: 12-16-2021 End: 12-17-2021 ambulatory SHAIKH Yohannes LUIS Facility:[facility] Procedures Date Procedure Procedure Detail Performing Clinician Start: 04-27-2024 ALL CBC WITH AUTO DIFF Marybeth Walsh [employer] WORKER Work Phone: Plan of Treatment Date Care Activity Detail Author Start: 11-01-2025 Glaucoma screening Diabetes: R etinopathy Screening [facility] Start: 04-27-2025 Urine screening for protein Diabetes: Urine Protein Screening [facility] Start: 07-22-2024 Urine screening for protein Diabetes: Urine Protein Screening [facility] Start: 04-28-2024 End: 04-28-2024 Patient encounter procedure 04/28/2024 2:00 PM EDT Office Visit [facility] [address] [place] [address] Marybeth Walsh NP [address] [place] [address] [facility] Start: 04-27-2024 End: 04-27-2025 CBC W Auto Differential panel - Blood CBC and differential Lab Routine Anemia, unspecified type Expected: 04/27/2024 (Approximate), Expires: 04/27/2025 [facility] Work Phone: Comment on above: Expected: 04/27/2024 (Approximate), Expires: 04/27/2025 Start: 04-27-2024 End: 04-27-2025 Cobalamin (Vitamin B12) [Mass/volume] in Serum or Plasma Vitamin B12 Lab Routine Anemia, unspecified type Expected: 04/27/2024 (Approximate), Expires: 04/27/2025 [facility] Comment on above: Expected: 04/27/2024 (Approximate), Expires: 04/27/2025 Start: 04-27-2024 End: 04-27-2025 Ferritin [Mass/volume] in Serum or Plasma Ferritin Lab Routine Anemia, unspecified type Expected: 04/27/2024 (Approximate), Expires: 04/27/2025 [facility] Comment on above: Expected: 04/27/2024 (Approximate), Expires: 04/27/2025 Start: 04-27-2024 End: 04-27-2025 Iron + transferrin + TIBC Iron + transferrin + TIBC Lab Routine Anemia, unspecified type Expected: 04/27/2024 (Approximate), Expires: 04/27/2025 [facility] Comment on above: Expected: 04/27/2024 (Approximate), Expires: 04/27/2025 Start: 04-27-2024 End: 04-27-2025 Measurement of occult blood in single stool specimen Occult blood x 1, stool Lab Routine Anemia, unspecified type Expected: 04/27/2024 (Approximate), Expires: 04/27/2025 [facility] Comment on above: Expected: 04/27/2024 (Approximate), Expires: 04/27/2025 Start: 04-22-2024 Medicare Annual Wellness (AWV) Medicare Annual Wellness (AWV) [facility] Start: 04-15-2024 End: 04-15-2024 ambulatory 04/15/2024 12:30 PM EDT Treatment [facility] [address] [facility] [address] [place] [phone] Vy De Dios, PT [facility] Start: 04-08-2024 End: 04-08-2024 ambulatory 04/08/2024 12:00 PM EDT Treatment [facility] [address] [place] [id number] Epi Felix, PRINT SHOP ASSISTANT [facility] Start: 04-05-2024 End: 04-05-2024 ambulatory 04/05/2024 12:30 PM EDT Treatment [facility] [address] [place] [address] Vy De Dios, PT [facility] Start: 04-01-2024 End: 04-01-2024 ambulatory [facility] Comment on above: Arrived Start: 03-29-2024 End: 03-29-2024 ambulatory 03/29/2024 10:30 AM EDT Treatment [facility] [address] [place] [address] Epi Felix PTA Arrived [facility] Comment on above: Arrived Start: 02-28-2024 Influenza vaccination Influenza Vacc ine (#1) [facility] Start: 01-20-2024 Hemoglobin A1c measurement Diabetes: Hemoglobin A1C [facility] Start: 03-31-2020 Medicare Annual Wellness (AWV) Medicare Annual Wellness (AWV) [facility] Immunizations Immunization Date Immunization Notes Care Provider Fa [facility] 04-22-2023 Influenza, High-dose Seasonal, Quadrivalent, Preservative Free Epi Felix PRINT [employer]OP ASSISTANT [facility] 04-22-2023 influenza virus vacc ine, unspecified formulation Epi Felix [facility] 05-16-2021 Influenza, High-dose Seasonal, Quadrivalent, Preservative Free Epi Felix [facility] 05-17-2019 influenza, high dose seasonal, preservative-free Epi Felix [facility] 06-14-2018 pneumococcal conjuga te vaccine, 13 valent Epi Felix [facility] 06-14-2018 Seasonal trivalent influenza vaccine, adjuvanted, preservative free Epi Felix [employer] ASSISTANT [facility] 05-29-2016 influenza, injectabl e, quadrivalent, preservative free Epi Felix [facility] Payers Date Payer Category Payer Private Health Insurance [id number] 2007 Medicare [id number] 1959 Medicare [id number] 1959 Private Health Insurance CLI [id number] 1942 Unknown [id number] 2.16.84 [id number] 1942 Unknown [id number] 2.16.84 0.1.311706.3.579.2.593 1942 Unknown [id number] 2.16.84 0.1.590112.3.579.2.593 1942 Unknown [id number] 2.16.8 40.1.803177.3.579.2.1286 1942 Unknown [id number] 2.16.84 0.1.961574.3.579.2.1286 1942 Unknown [id number] 2.16.84 0.1.425557.3.579.2.1286 1942 Unknown [id number] 2.16.84 0.1.149014.3.579.2.1259 1942 Unknown [id number] 2.16.84 0.1.661099.3.579.2.1259 1942 Unknown [id number] 2.16.84 0.1.049649.3.579.2.1259 1942 Unknown [id number] 2.16.84 0.1.317765.3.579.2.1259 1942 Unknown [id number] 2.16.84 0.1.724083.3.579.2.1259 1942 Unknown [id number] 2.16.84 0.1.859022.3.579.2.1259 1942 Unknown [id number] 2.16.84 0.1.580045.3.579.2.1259 1942 Unknown [id number] 2.16.84 0.1.699738.3.579.2.1259 1942 Unknown [id number] 2.16.84 0.1.892456.3.579.2.1259 1942 Unknown [id number] 2.16.84 0.1.493186.3.579.2.1259 1942 Unknown [id number] 2.16.84 0.1.912173.3.579.2.1259 Social History Date Type Detail Facility Start: 10-26-2023 Tobacco smoking stat [facility] Never smoked tobacco [facility] Start: 10-26-2023 Tobacco use and exposure Smokeless tobacco non-user [facility] Start: 03-16-2024 Alcoholic beverage intake Lifetime non-drinker (finding) [facility] Start: 03-07-2024 End: 03-16-2024 History of Social function [facility] Start: 03-07-2024 End: 03-16-2024 Tobacco use panel [facility] Start: 1940 Sex assigned at Not on file [facility] NEGATED: Highlighted rowStart: NINF History of tobacco use Passive smoker [facility] History of Present illness Narrative 04-15-2024 [...] things to stabilize herself. Precautions: Left TKA, [place] Subjective: Pt states she has been doing [...] heel for trial with ambulation. - addressed Analysis Or Research Safety Inspector Goals: To be met in 10 weeks [...] of Present illness Narrative 04-05-2024 Vy De Dios, PT - 04/05/2024 12:30 PM EDT Note [...] things to stabilize herself. Precautions: Left TKA, [place] Subjective: Pt states she is doing well. [...] right heel for trial with ambulation. Senior Living Goals: To be met in 10 weeks [...] sign below. Date: documented in this encounter [facility] Evaluation note Note Date & Type Note Facility Evaluation note Diagnosis Chronic 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- Primary documented in this encounter [facility] Evaluation note Note Date & Type Note Facility Evaluation note Diagnosis Chronic 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- Primary documented in this encounter [facility] Evaluation note Note Date & [...] without sciatica- Primary documented in this encounter [facility] Evaluation note Note Date & Type [...] sciatica 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) documented in this encounter [facility] Evaluation note Note Date & Type [...] complication, without long-term current use of insulin ([facility]/HCC) Gastroesophageal reflux disease without esophagitis Esophageal reflux Chronic 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 Neoplasm of uncertain behavior of skin Anemia, unspecified type- Primary documented in this encounter [facility] Reason for visit Narrative Rehabilitation - Outpatient (Routine) - Closed Note Date & Type Note Facility Reason for visit Narrative Specialty Diagnoses / Procedures Referred By Contac t Referred To Contact Physical Therapy Diagnoses Chronic 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 Procedures CO OFFICE/OUTPATIENT NEW HIGH MDM 60 MINUTES Marybeth Walsh NP [address] [place] [address] Phone: tel: fax: Vy De Dios PT Referral ID Status Reason Start Date Expiration Date V isits Requested Visits Authorized [id number] Closed Specialty Services Required 03/07/2024 09/03/2024 25 [...] section and content) DATE CREATED AUTHOR 01/31/2022 [facility] DATE CREATED AUTHOR AUTHOR'S ORGANIZ ATION 05/30/2022 [facility] DATE CREATED AUTHOR AUTHOR'S ORGANIZ ATION 12/17/2023 [facility] DATE CREATED AUTHOR AUTHOR'S ORGANIZ ATION 04/18/2024 [facility] dical Specialists EPIC Care Teams (unrecognized sec tion and content) Exchange Trouble Shooter Relationship Specialty Start Date End Date Yannick Bills MD [address] [place] [address] PCP - General Family Medicine 02/10/24 Marybeth Walsh NP [address] [place] [address] Nurse Practitioner Family Medicine 02/10/24 Exchange Trouble Shooter Relationship Specialty Start Date End Date Yannick Bills MD [address] [place] [phone] PCP - General Family Medicine 02/10/24 Marybeth Walsh NP [address] [place] [address] Nurse Practitioner Family Medicine 02/10/24 Exchange Trouble Shooter Relationship Specialty Start Date End Date Yannick Bills MD [address] [place] [phone] PCP - General Family Medicine 02/10/24 Marybeth Walsh NP [address] [place] [address] Nurse Practitioner Family Medicine 02/10/24 Exchange Trouble Shooter Relationship Specialty Start Date End Date Yannick Bills MD [address] [place] [address] PCP - General Family Medicine 02/10/24 Marybeth Walsh NP [address] [place] [address] Nurse Practitioner Family Medicine 02/10/24 Exchange Trouble Shooter Relationship Specialty Start Date End Date Yannick Bills MD [address] [place] [phone] PCP - General Family Medicine 02/10/24 Marybeth Walsh NP [address] [place] [address] Nurse Practitioner Family Medicine 02/10/24 Exchange Trouble Shooter Relationship Specialty Start Date End Date Yannick Bills MD [address] [place] [address] PCP - General Family Medicine 02/10/24 Marybeth Walsh NP [address] [place] [address] Nurse Practitioner Family Medicine 02/10/24 Exchange Trouble Shooter Relationship Specialty Start Date End Date Yannick Bills MD [address] [place] [address] PCP - General Family Medicine 02/10/24 Marybeth Walsh NP [address] [place] [address] Nurse Practitioner Family Medicine 02/10/24 Exchange Trouble Shooter Relationship Specialty Start Date End Date Yannick Bills MD [address] [place] [phone] PCP - General Family Medicine 02/10/24 Marybeth Walsh NP [address] [place] [address] Nurse Practitioner Family Medicine 02/10/24 Reason for Visit (unrecogniz ed section and content) Specialty Diagnoses / Procedures Referred By Contjorge t Referred To Contact Physical Therapy Diagnoses Chronic 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 Procedures CO OFFICE/OUTPATIENT NEW HIGH MDM 60 MINUTES Marybeth Walsh NP [address] [place] [address] Vy De Dios, DEDRICK Referral ID Status Reason Start Date Expiration Date Visits Requested Visits Authorized [id number] Authorized Specialty Services Required 03/07/2024 09/03/2024 25 30 Reason Onset Date Comments Med Refill 04/26/2024 FOR RECORDS PERTAINING TO PATIENTS WHO ARE [...] BE BASED ON THE PRIMARY CLINICAL RECORDS. [facility]. provides no warranty or guarantee of the accuracy or completeness of information in this document.
[2024-04-28 08:33] LABS: Basophils Percent Auto 0.7 % (0.2-2.0); Eosinophils Percent Auto 0.7 % (0.9-7.0); Hemoglobin 11.5 g/dL (12.0-16.0); Immature Granulocytes Abs Auto 0.01 10^3/uL (0.00-0.03); Immature Granulocytes Pct Auto 0.2 % (0.0-0.5); Lymphocytes Absolute Auto 1.2 10^3/uL (1.2-3.8); Lymphocytes Percent Auto 26.7 % (20.5-60.0); Mean Corpuscular HGB Conc 33.8 g/dL (29.9-35.2); Mean Corpuscular Hemoglobin 31.3 pg (26.7-34.0); Mean Corpuscular Volume 92.6 fL (81.0-99.0); Mean Platelet Volume 8.9 fL (9.5-13.5); Monocytes Absolute Auto 0.3 10^3/uL (0.3-0.8); Monocytes Percent Auto 7.1 % (1.7-12.0); Neutrophils Absolute Auto 2.8 10^3/uL (1.4-6.5); Neutrophils Percent Auto 64.6 % (43.0-75.0); Platelet Count 271 10^3/uL (150-450); Red Blood Count 3.67 10^6/uL (4.20-5.40); Red Cell Distribution Width 13.5 % (11.0-15.0); White Blood Count 4.3 10^3/uL (4.0-11.0)
[2024-04-28 08:59] LABS: Percent Iron Saturation 34.8 %
[2024-04-29 10:10] LABS: Vitamin B12 664 pg/mL (232-1245)
[2024-04-29 12:09] LABS: Transferrin 251 mg/dL (149-313)
== END 2024-04-28 08:04 | disposition home or self-care (01) ==
DX: D64.9 Anemia, unspecified (principal)
CPT/HCPCS: 36415; 82607; 82728; 83540; 83550; 84466; 85025

== ENCOUNTER 2024-09-26 07:33 | Outpatient (OUT) | payer MEDICARE, SELFPAY ==
--- OUTSIDE RECORDS SUMMARY | 2024-09-26 07:47 | XMS_ITS | CCD ---
Author Organization [facility] Care Team Providers Care Balloon Pilot Name Role Phone FAWWAD, GARCIA H Attending [...] Unavailable Negar CISNEROS, Yannick Primary Care Provider [phone] Walsh GAMEPLAY PROGRAMMER, Marybeth Unavailable JERRYD, GARCIA Attending Unavailable FAWWAD, GARCIA Attending Unavailable [...] Referring Unavailabl e VY DE DIOS Attending MARYBETH Ramos Referring VY Sharma Attending Unavailable MARYBETH WALSH Referring MARYBETH Arias Attending Barbara e Allergies Allergy Classification Reported Allergen(s) Allergy Type Date of Onset Reaction(s) Facility (1 source) BEE VENOM PROTEIN (HONEY BEE); Translations: [BEE VENOM PROTEIN (HONEY BEE)] Propensity to adverse reactions to drug (disorder) 0 [facility] (20 sources) Honey bee venom Propensity to adverse reactions 0 [facility] Medications Current Medications Medication Drug Class(es) Dates Sig (Normalized) Sig (Original) amLODIPine 5 mg oral tablet (20 sources) Dihydropyridine Calcium Channel Kamryn Start: 11-25-2023 End: 11-26-2024 take 1 tablet by mouth in the morning amLODIPine (Norvasc) 5 MG tablet Indications: Primary hypertension (CMS/HCC) Take 1 tablet (5 mg) by mouth in the morning. 90 tablet 1 05/30/2024 11/26/2024 Active atorvastatin 20 mg oral tablet (20 sources) HMG-CoA Reductase Inhibitor Start: 03-28-2024 End: 03-28-2025 take 1 tablet by mouth once daily atorvastatin (Lipitor) 20 MG tablet Indications: Other hyperlipidemia (CMS/HCC) Take 1 tablet (20 mg) by mouth Daily 30 tablet 11 03/28/2024 03/28/2025 Active Start: 12-12-2022 atorvastatin ( Lipitor) 20 MG tablet 12/12/2022 Active Blood Glucose Monitoring Suppl (True Metrix Meter) w/Device kit (20 sources) Start: 05-18-2024 Blood Glucose Monitoring Suppl (True Metrix Meter) w/Device kit Indications: Type 2 diabetes mellitus without complication, without long-term current use of insulin (CMS/HCC) 1 each 4 (four) times a day as needed (Hyperglycemia/hypoiglycemia) 1 kit 05/18/2024 Active Start: 04-28-2024 End: 05-18-2024 Blood Gl[address] Monitoring [address] (True Metrix Meter) w/Device kit Indications: Type 2 diabetes mellitus without complication, without long-term current use of insulin (CMS/HCC) 1 each 4 (four) times a day as needed (Hyperglycemia/hypoiglycemia) 1 kit 04/28/2024 05/18/2024 Discontinued (Reorder) Start: 04-28-2024 Blood Glucose Monitoring Suppl (True Metrix Meter) w/Device kit Indications: Type 2 diabetes mellitus without complication, without long-term current use of insulin (CMS/HCC) 1 each 4 (four) times a day as needed (Hyperglycemia/hypoiglycemia) 1 kit 04/28/2024 Active End: 04-28-2024 Blood Gl[address] Monitoring [address] (True Metrix Meter) w/Device kit 04/28/2024 Discontinued (Reorder) Blood Glucose Mo nitoring Suppl (True Metrix Meter) w/Device kit Active calcium carbonate 1500 mg oral tablet (20 sources) Start: 06-29-2024 take 1 tablet by mouth in the morning calcium carbonate 1500 (600 Ca) MG tablet Indications: Osteoarthritis of left knee, unspecified osteoarthritis type Take 1 tablet (1,500 mg) by mouth in the morning and 1 tablet (1,500 mg) in the evening. Take with meals. 90 tablet 06/29/2024 Active End: 06-27-2024 take 1 tablet by mouth in the morning calcium carbonate 1500 (600 Ca) MG tablet Take 1,500 mg by mouth in the morning and 1,500 mg in the evening. Take with meals. 06/27/2024 Discontinued (Reorder) cholecalciferol 0.05 mg oral capsule (20 sources) Vitamin D Start: 07-04-2024 take 1 capsule by mouth once daily cholecalciferol (Vitamin D-3) 50 MCG (2000 UT) capsule Indications: Osteopenia of multiple sites Take 1 capsule (50 mcg) by mouth Daily 90 capsule 07/04/2024 Active End: 06-30-2024 take 1 capsule by mouth in the morning cholecalciferol (Vitamin D-3) 50 MCG (2000 UT) capsule Take 2,000 Units by mouth in the morning. 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 Take before meals. 90 tablet 1 04/26/2024 10/23/2024 Active lisinopril 10 mg oral tablet (20 sources) Angiotensin Converting Enzyme Inhibitor Start: 11-03-2023 End: 10-25-2024 take 1 tablet by mouth once daily lisinopril 10 MG tablet Indications: Primary hypertension (CMS/HCC) Take 1 tablet (10 mg) by mouth 1 (one) time each day at the same time 90 tablet 1 04/28/2024 10/25/2024 Active loratadine 10 mg oral tablet (20 sources) Start: 06-29-2024 take 1 tablet by mouth once daily loratadine (Claritin) 10 MG tablet Indications: Seasonal allergic rhinitis, unspecified trigger Take 1 tablet (10 mg) by mouth Daily 90 tablet 06/29/2024 Active End: 06-27-2024 take 1 tablet by mouth in the morning loratadine (Claritin) 10 MG tablet Take 10 mg by mouth in the morning. 06/27/2024 Discontinued (Reorder) metFORMIN hydrochloride 500 mg oral tablet (20 sources) Biguanide Start: 03-07-2024 End: 03-07-2024 take 1 tablet by mouth at mealtime metFORMIN (Glucophage) 500 MG tablet Indications: Type 2 diabetes mellitus without complication, without long-term current use of insulin (CMS/HCC) Take 1 tablet (500 mg) by mouth in the morning. Take with meals. 90 tablet 2 03/07/2024 Active omeprazole 20 mg delayed release oral capsule (20 sources) Proton Pump Inhibitor Start: 01-11-2024 End: 07-09-2024 take 1 capsule by mouth once daily omeprazole (PriLOSEC) [address] capsule Indications: Gastroesophageal reflux disease without esophagitis Take 1 capsule (20 mg) by mouth 1 (one) time each day at the same time 90 capsule 1 01/11/2024 07/09/2024 Active triamcinolone acetonide 0.055 mg/actuat metered dose nasal spray (20 sources) Corticosteroid take 2 spray(s) nasal route [...] unspecified] 04-27-2024 Episodic Diabetes mellitus without complication (20 sources) Type 2 diabetes mellitus without complications; Translations: [Type 2 diabetes mellitus without complication] Onset: 12-16-2021 Chronic Disorders of lipid metabolism (20 sources) Hyperlipidemia, unspecified; Translations: [Hyperlipidemia] Onset: 12-18-2021 07-23-2023 Chronic Esophageal disorders (20 sources) Gastroesophageal reflux disease without esophagitis; Translations: [Gastro-esophageal reflux disease without esophagitis] Onset: 07-23-2023 07-23-2023 Chronic Essential hypertension (20 sources) Essential (primary) hypertension; Translations: [Hypertensive disorder] Onset: 12-18-2021 07-23-2023 Chronic Immunizations and screening for infectious disease (2 sources) Needs influenza immunization; Translations: [Encounter for immunization] 04-28-2024 Episodic Osteoarthritis (20 sources) Osteoarthritis of left knee joint; Translations: [Unilateral primary osteoarthritis, left knee] Onset: 07-23-2023 07-23-2023 Chronic Other bone disease and musculoskeletal deformities (20 sources) Osteopenia; Translations: [Other specified disorders of bone density and structure, unspecified site] Onset: 07-23-2023 07-23-2023 Episodic Other connective tissue disease (20 sources) History of total knee arthroplasty; Translations: [Presence of left artificial knee joint] Onset: 07-23-2023 07-23-2023 Chronic Other skin disorders (2 sources) Inflamed seborrheic keratosis; Translations: [Inflamed seborrheic keratosis] 03-16-2024 Episodic Other upper respiratory disease (1 source) Seasonal allergic rhinitis; Translations: [Other seasonal allergic rhinitis] 06-29-2024 Chronic Spondylosis; intervertebral disc disorders; other back problems (20 sources) Chronic back pain ; Translations: [Dorsalgia, unspecified] 03-07-2024 Episodic Thyroid disorders (20 sources) Hypothyroidism, unspecified; Translations: [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] Onset: 12-18-2021 07-23-2023 Chronic Unclassified (1 source) High BP Onset: 12-15-2023 Past or Other Problems Problem Classification Problem Date Documented Date Episodic/Chronic Neoplasms of unspecified nature or uncertain behavior (20 sources) Neoplasm of uncertain behavior of skin; Translations: [Neoplasm of uncertain behavior of skin] Onset: 03-07-2024 03-07-2024 Episodic Other connective tissue disease (1 source) [...] WITH AUTO DIFFon BASOPHILS ABSOLUTE AUTO 0 [facility] Basophils/100 WBC (Bld) 0.7 % 0.2 - 2.0 % [facility] Eosinophils/100 WBC (Bld) 0.7 % Low 0.9 - 7.0 % [facility] Erythrocyte distribution width (RBC) [Ratio] 13.5 % 11.0 - 15.0 % [facility] Hematocrit (Bld) [Volume fraction] 34 % Low 36.0 - 48.0 % [facility] [Mass/Vol] 11.5 g/dL Low 12.0 - 16.0 g/dL [facility] IMMATURE GRANULOCYTES ABS AUTO 0.01 [facility] Immature granulocytes/100 WBC (Bld) 0.2 % 0.0 - 0.5 % [facility] Interpretation and review of laboratory results Abnormal [facility] LYMPHOCYTES ABSOLUTE AUTO 1.2 [facility] Lymphocytes/100 WBC (Bld) 26.7 % 20.5 - 60.0 % [facility] MCH (RBC) [Entitic mass] 31.3 pg 26.7 - 34.0 pg [facility] MCHC (RBC) [Mass/Vol] 33.8 g/dL 29.9 - 35.2 g/dL [facility] MCV (RBC) [Entitic vol] 92.6 fL 81.0 - 99.0 fL [facility] MONOCYTES ABSOLUTE AUTO 0.3 [facility] Monocytes/100 WBC (Bld) 7.1 % 1.7 - 12.0 % [facility] NEUTROPHILS ABSOLUTE AUTO 2.8 [facility] Neutrophils/100 WBC (Bld) 64.6 % 43.0 - 75.0 % [facility] Platelet mean volume (Bld) [Entitic vol] 8.9 fL Low 9.5 - 13.5 fL [facility] EO # 0 [facility] PLT 271 [facility] RBC 3.67 [facility] WBC 4.3 [facility] ALL CBC WITH AUTO DIFFon BASOPHILS ABSOLUTE AUTO 0 [facility] Basophils/100 WBC (Bld) 0.7 % 0.2 - 2.0 % [facility] Eosinophils/100 WBC (Bld) 1 % 0.9 - 7.0 % [facility] Erythrocyte distribution width (RBC) [Ratio] 13.5 % 11.0 - 15.0 % [facility] Hematocrit (Bld) [Volume fraction] 33.8 % Low 36.0 - 48.0 % [facility] Hemoglobin (Bld) [Mass/Vol] 11.4 g/dL Low 12.0 - 16.0 g/dL [facility] IMMATURE GRANULOCYTES ABS AUTO 0.01 [facility] Immature granulocytes/100 WBC (Bld) 0.2 % 0.0 - 0.5 % [facility] Interpretation and review of laboratory results Abnormal [facility] LYMPHOCYTES ABSOLUTE AUTO 0.9 Low [facility] Lymphocytes/100 WBC (Bld) 22.4 % 20.5 - 60.0 % [facility] MCH (RBC) [Entitic mass] 31.3 pg 26.7 - 34.0 pg [facility] MCHC (RBC) [Mass/Vol] 33.7 g/dL 29.9 - 35.2 g/dL [facility] MCV (RBC) [Entitic vol] 92.9 fL 81.0 - 99.0 fL [facility] MONOCYTES ABSOLUTE AUTO 0.4 [facility] Monocytes/100 WBC (Bld) 8.6 % 1.7 - 12.0 % [facility] NEUTROPHILS ABSOLUTE AUTO 2.8 [facility] Neutrophils/100 WBC (Bld) 67.1 % 43.0 - 75.0 % [facility] Platelet mean volume (Bld) [Entitic vol] 9.2 fL Low 9.5 - 13.5 fL [facility] EO # 0 [facility] PLT 257 [facility] RBC 3.64 Low [facility] WBC 4.2 [facility] No Panel Informationon 03-16 [facility] DEXA SCAN CENTRAL SKELETALon 06-25-2023 [...] Ferrer MD on 06/25/2023 1:[address] [facility] MAMM SCREENING BILATERAL W C nozzle tender 06-25-2023 MAMM SCREENING BILATERAL W CAD MAMM SCREENING BILATERAL W CAD MAMM SCREENING BILATERAL W CAD 06/25/2023 12:51 PM HISTORY: Encounter for screening mammogram for malignant neoplasm of breast TECHNIQUE: Bilateral CC and MLO 3-D tomosynthesis with C-views performed. Computer-aided detection was used in the interpretation of this examination. COMPARISON: 2018 2021 2022 FINDINGS: Breast density: There are scattered areas of fibroglandular density. No suspicious calcifications, masses or architectural distortion. There has been no significant interval change. IMPRESSION: * No mammographic evidence of malignancy. ASSESSMENT- BI-RADS 1 - Negative Recommendation: Routine screening mammogram in 1 year 2 Finalized by Mian Fleming DO on 06/25/2023 1:32 PM 1 b MAMM [address] [facility] TRANSFERRINon 03-27-2022 Transferrin [Mass/Vol] 254 mg/dL Normal 192-[address] [facility] Comment on above: Performed By: #### T RANSFR #### [facility] [address] [place] [address] Dr. Esperanza Sheets CBC AUTO DIFFon 03-25-2022 BASO # 0.0 103/ul Normal 0.0-0.[address] [facility] Comment on above: Performed By: #### C BC #### [facility] [address] [place] [address] Dr. Esperanza Sheets Basophils/100 WBC (Bld) 0.8 % Normal 0.2-2.[address] [facility] Comment on above: Performed By: #### C BC #### [facility] [address] [place] [address] Dr. Esperanza Sheets EO # 0.1 103/ul Normal 0.0-0.[address] [facility] Comment on above: Performed By: #### C BC #### [facility] [address] [place] [address] Dr. Esperanza Sheets Eosinophils/100 WBC (Bld) 1.2 % Normal 0.9-7.[address] [facility] Comment on above: Performed By: #### C BC #### [facility] [address] [place] [address] Dr. Esperanza Sheets Erythrocyte distribution width (RBC) [Ratio] 14.4 % Normal 11.0-15.[address] [facility] Comment on above: Performed By: #### C BC #### [facility] [address] [place] [address] Dr. Esperanza Sheets Hematocrit (Bld) [Volume fraction] 33.5 % Critically low 36.0-48.[address] [facility] Comment on above: Performed By: #### C BC #### [facility] [address] [place] [address] Dr. Esperanza Sheets Hemoglobin (Bld) [Mass/Vol] 10.7 g/dL Critically low 12.0-16.[address] [facility] Comment on above: Performed By: #### C BC #### [facility] [address] [place] [address] Dr. Esperanza Sheets IG # 0.02 10e3/ul Normal 0.00-0.[address] [facility] Comment on above: Performed By: #### C BC #### [facility] [address] [place] [address] Dr. Esperanza Sheets IG % 0.4 % Normal 0.0-0.[address] [facility] Comment on above: Performed By: #### C BC #### [facility] [address] [place] [address] Dr. Esperanza Sheets LYMPH # 1.3 103/ul Normal 1.2-3.[address] [facility] Comment on above: Performed By: #### C BC #### [facility] [address] [place] [address] Dr. Esperanza Sheets Lymphocytes/100 WBC (Bld) 24.2 % Normal 20.5-60.[address] [facility] Comment on above: Performed By: #### C BC #### [facility] [address] [place] [address] Dr. Esperanza Sheets MANUAL DIFF REQ NO Normal [facility] Comment on above: Performed By: #### C BC #### [facility] [address] [place] [address] Dr. Esperanza Sheets MCH (RBC) [Entitic mass] 30.3 pg Normal 26.7-34.[address] [facility] Comment on above: Performed By: #### C BC #### [facility] [address] [place] [address] Dr. Esperanza Sheets MCHC (RBC) [Mass/Vol] 31.9 g/dL Normal 29.9-35.[address] [facility] Comment on above: Performed By: #### C BC #### [facility] [address] [address] [address] Esperanza Sheets MCV (RBC) [Entitic vol] 94.9 fL Normal 81.0-99.[address] [facility] Comment on above: Performed By: #### C BC #### [facility] [address] [address] [address] Esperanza Sheets MONO # 0.3 103/ul Normal 0.3-0.[address] [facility] Comment on above: Performed By: #### C BC #### [facility] [address] [address] [address] Esperanza Sheets Monocytes/100 WBC (Bld) 6.5 % Normal 1.7-12.[address] [facility] Comment on above: Performed By: #### C BC #### [facility] [address] [place] [address] Dr. Esperanza Sheets NEUT # 3.5 103/ul Normal 1.4-6.[address] [facility] Comment on above: Performed By: #### C BC #### [facility] [address] [place] [address] Dr. Esperanza Sheets Neutrophils/100 WBC (Bld) 66.9 % Normal 43.0-75.[address] [facility] Comment on above: Performed By: #### C BC #### [facility] [address] [place] [address] Dr. Esperanza Sheets Platelet mean volume (Bld) [Entitic vol] 9.8 fL Normal 9.5-13.[address] [facility] Comment on above: Performed By: #### C BC #### [facility] [address] [place] [address] Dr. Esperanza Sheets PLT 265 103/ul Normal 150-450 [facility] Comment on above: Performed By: #### C BC #### [facility] [address] [address] [address] Esperanza Sheets RBC 3.53 106/ul Critically low 4.20-5.40 [facility] Comment on above: Performed By: #### C BC #### [facility] [address] [place] [address] Dr. Esperanza Sheets WBC 5.2 103/ul Normal 4.0-11.[address] [facility] Comment on above: Performed By: #### C BC #### [facility] [address] [place] [address] Dr. Esperanza Sheets FERRITINon 03-25-2022 Ferritin [Mass/Vol] 63.0 ng/mL Normal 8.0-252.0 [facility] Comment on above: Performed By: #### F ETIBC, FERR #### [facility] [address] [place] [address] Dr. Esperanza Sheets IRON AND TIBCon 03-25-2022 % SATURATION 13.7 % Normal [facility] Comment on above: Performed By: #### F ETIBC, FERR #### [facility] [address] [place] [address] Dr. Esperanza Sheets Iron [Mass/Vol] 39.0 ug/dL Critically low 50.0-170.0 [facility] Comment on above: Performed By: #### F ETIBC, FERR #### [facility] [address] [place] [address] Dr. Esperanza Sheets TIBC DIRECT 285.0 ug/dL Normal 250.0-450.0 [facility] Comment on above: Performed By: #### F ETIBC, FERR #### [facility] [address] [place] [address] Dr. Esperanza Sheets ECHOCARDIO M/2D COMPLETEon 0 12-27-2021 ECHOCARDIO M/2D COMPLETE Patient: JUMANA LEAL Exam Date: 12/27/2021 : 1940 Gender:F Ordering : SHAIKH Jesus LUIS . Admission #: [id number] Family : Order #: [id number] CLICK HERE TO VIEW EXAM ECHOCARDIOGRAM REPORT [...] Tejada M.D. on 12/27/2021 at 18:[address] [facility] XR femur BIon 12-18-2021 XR femur BI [facility] [place] [address] [place] [address] XRay Report Signed Patient: Jumana Leal MR#: [id number] : 1940 Acct:[id number] Age/Sex: 81 / F ADM Date: 12/18/21 Loc: ICXD Room: Type: [facility] Attending Dr: Emiliano Hui PA-C Copies to: Emiliano Hui PA-C Ordering Provider: Emiliano Hui PA-C Date of Service: 12/18/21 XR/XR tibia/fibula BI: TKA ([id number]) XR/XR femur BI: TKA LEFT KNEE Bilateral [...] Yusuf Jr., M.D.12/18/2021 3:28 PM Dictation Location: [place] [address] Transcribed By: [facility] 12/18/211527 Dictated By: Ivan Yusuf Jr, MD 12/18/211521 Signed By: 12/18/211527 [facility] CBC AUTO DIFFon 12-16-2021 BASO # 0.0 103/ul Normal 0.0-0.[address] [facility] Comment on above: Performed By: #### C BC #### [facility] [address] [place] [address] Dr. Esperanza Sheets Basophils/100 WBC (Bld) 0.6 % Normal 0.2-2.[address] [facility] Comment on above: Performed By: #### C BC #### [facility] [address] [place] [address] Dr. Esperanza Sheets EO # 0.1 103/ul Normal 0.0-0.[address] [facility] Comment on above: Performed By: #### C BC #### [facility] [address] [place] [address] Dr. Esperanza Sheets Eosinophils/100 WBC (Bld) 1.5 % Normal 0.9-7.[address] [facility] Comment on above: Performed By: #### C BC #### [facility] [address] [place] [address] Dr. Esperanza Sheets Erythrocyte distribution width (RBC) [Ratio] 13.9 % Normal 11.0-15.[address] [facility] Comment on above: Performed By: #### C BC #### [facility] [address] [place] [address] Dr. Esperanza Sheets Hematocrit (Bld) [Volume fraction] 34.8 % Critically low 36.0-48.[address] [facility] Comment on above: Performed By: #### C BC #### [facility] [address] [place] [address] Dr. Esperanza Sheets Hemoglobin (Bld) [Mass/Vol] 11.4 g/dL Critically low 12.0-16.[address] [facility] Comment on above: Performed By: #### C BC #### [facility] [address] [place] [address] Dr. Esperanza Sheets IG # 0.02 10e3/ul Normal 0.00-0.[address] [facility] Comment on above: Performed By: #### C BC #### [facility] [address] [place] [address] Dr. Esperanza Sheets IG % 0.4 % Normal 0.0-0.[address] [facility] Comment on above: Performed By: #### C BC #### [facility] [address] [place] [address] Dr. Esperanza Sheets LYMPH # 2.0 103/ul Normal 1.2-3.[address] [facility] Comment on above: Performed By: #### C BC #### [facility] [address] [place] [address] Dr. Esperanza Sheets Lymphocytes/100 WBC (Bld) 37.6 % Normal 20.5-60.[address] [facility] Comment on above: Performed By: #### C BC #### [facility] [address] [place] [address] Dr. Esperanza Sheets MANUAL DIFF REQ NO Normal [facility] Comment on above: Performed By: #### C BC #### [facility] [address] [place] [address] Dr. Esperanza Sheets MCH (RBC) [Entitic mass] 31.3 pg Normal 26.7-34.[address] [facility] Comment on above: Performed By: #### C BC #### [facility] [address] [place] [address] Dr. Esperanza Sheets MCHC (RBC) [Mass/Vol] 32.8 g/dL Normal 29.9-35.[address] [facility] Comment on above: Performed By: #### C BC #### [facility] [address] [address] [address] Esperanza Sheets MCV (RBC) [Entitic vol] 95.6 fL Normal 81.0-99.[address] [facility] Comment on above: Performed By: #### C BC #### [facility] [address] [address] [address] Esperanza Sheets MONO # 0.3 103/ul Normal 0.3-0.[address] [facility] Comment on above: Performed By: #### C BC #### [facility] [address] [address] [address] Esperanza Sheets Monocytes/100 WBC (Bld) 6.6 % Normal 1.7-12.[address] [facility] Comment on above: Performed By: #### C BC #### [facility] [address] [address] [address] Esperanza Sheets NEUT # 2.8 103/ul Normal 1.4-6.[address] [facility] Comment on above: Performed By: #### C BC #### [facility] [address] [place] [address] Dr. Esperanza Sheets Neutrophils/100 WBC (Bld) 53.3 % Normal 43.0-75.[address] [facility] Comment on above: Performed By: #### C BC #### [facility] [address] [place] [address] Dr. Esperanza Sheets Platelet mean volume (Bld) [Entitic vol] 9.8 fL Normal 9.5-13.5 [facility] Comment on above: Performed By: #### C BC #### [facility] [address] [place] [address] Dr. Esperanza Sheets PLT 274 103/ul Normal 150-450 [facility] [facility] Comment on above: Performed By: #### C BC #### [facility] [address] [address] [address] Esperanza Sheets RBC 3.64 106/ul Critically low 4.20-5.40 [facility] Comment on above: Performed By: #### C BC #### [facility] [address] [address] [address] Esperanza Sheets WBC 5.2 103/ul Normal 4.0-11.[address] [facility] Comment on above: Performed By: #### C BC #### [facility] [address] [address] [address] Esperanza Sheets GLYCOHEMOGLOBIN A1Con 2021 ADA RECOMMENDATION SEE BELOW Normal [facility] Comment on above: Result Comment: ADA RECOMMENDED LIMIT 4.0 - 6.0 ADA THERAPEUTIC TARGET < 7.0 ACTION SUGGESTED > 7.0 Performed By: #### A 1C #### [facility] [address] [address] [address] Esperanza Sheets Glucose [Mass/Vol] 128 mg/dL Normal [facility] Comment on above: Performed By: #### A 1C #### [facility] [address] [place] [address] Dr. Esperanza Sheets HbA1c (Bld) [Mass fraction] 6.1 % Normal 4.5-6.[address] [facility] Comment on above: Performed By: #### A 1C #### [facility] [address] [address] [address] Esperanza Sheets LIPID PROFILEon 12-16-2021 CHOL-HDL RATIO NORM SEE BELOW Normal [facility] Comment on above: Result Comment: 3.3 - 4.4 LOW RISK 4.4 - 7.1 AVERAGE RISK 7.1 - 11.0 MODERATE RISK >11.0 HIGH RISK Performed By: #### L IPID, CMP, TSH #### [facility] [address] [address] [address] Esperanza Sheets Cholesterol [Mass/Vol] 159 mg/dL Normal <=[address] [facility] Comment on above: Performed By: #### L IPID, CMP, TSH #### [facility] [address] [address] [address] Esperanza Sheets Cholesterol in HDL [Mass/Vol] 91 mg/dL Critically high 40-[address] [facility] Comment on above: Performed By: #### L IPID, CMP, TSH #### [facility] [address] [address] [address] Esperanza Sheets Cholesterol in LDL [Mass/Vol] 41.8 mg/dL Normal [facility] Comment on above: Performed By: #### L IPID, CMP, TSH #### [facility] [address] [address] [address] Esperanza Sheets Cholesterol.total/Cho lesterol in HDL [Mass ratio] 1.7 {ratio} Normal [facility] Comment on above: Performed By: #### L IPID, CMP, TSH #### [facility] [address] [address] [address] Esperanza Sheets HDL NORMAL > or = 60 mg/dl - LOW CARDIOVASCULAR RISK <40 mg/dl - HIGH CARDIOVASCULAR RISK Normal [facility] Comment on above: Performed By: #### L IPID, CMP, TSH #### [facility] [address] [place] [address] Dr. Esperanza Sheets LDL CALC NORMAL SEE BELOW Normal [facility] Comment on above: Result Comment: <100 mg/dl OPTIMAL 100 - 129 mg/dl NEAR OR ABOVE OPTIMAL 130 - 159 mg/dl BORDERLINE HIGH 160 - 189 mg/dl HIGH >190 mg/dl VERY HIGH Performed By: #### L IPID, CMP, TSH #### [facility] [address] [address] [address] Esperanza Sheets Triglyceride [Mass/Vol] 131 mg/dL Normal <=[address] [facility] Comment on above: Performed By: #### L IPID, CMP, TSH #### [facility] [address] [address] [address] Esperanza Sheets VLDL CALC 26.2 mg/dL Normal [facility] Comment on above: Performed By: #### L IPID, CMP, TSH #### [facility] [address] [place] [address] Dr. Esperanza Sheets PROF 14(COMP METB)on 022 Albumin [Mass/Vol] 3.8 g/dL Normal 3.4-5.0 [facility] Comment on above: Performed By: #### L IPID, CMP, TSH #### [facility] [address] [address] [address] Esperanza Sheets Albumin/Globulin [Mass ratio] 1.0 {ratio} Normal [facility] Comment on above: Performed By: #### L IPID, CMP, TSH #### [facility] [address] [address] [address] Esperanza Sheets ALP [Catalytic activity/Vol] 56 U/L Normal 46-[address] [facility] Comment on above: Performed By: #### L IPID, CMP, TSH #### [facility] [address] [address] [address] Esperanza Sheets ALT [Catalytic activity/Vol] 39 U/L Normal 14-[address] [facility] Comment on above: Performed By: #### L IPID, CMP, TSH #### [facility] [address] [place] [address] Dr. Esperanza Sheets Anion gap [Moles/Vol] 14.4 mmol/L Normal [facility] Comment on above: Performed By: #### L IPID, CMP, TSH #### [facility] [address] [address] [address] Esperanza Sheets AST [Catalytic activity/Vol] 28 U/L Normal 15-[address] [facility] Comment on above: Performed By: #### L IPID, CMP, TSH #### [facility] [address] [address] [address] Esperanza Sheets Bilirubin [Mass/Vol] 0.4 mg/dL Normal 0.2-1.[address] [facility] Comment on above: Performed By: #### L IPID, CMP, TSH #### [facility] [address] [address] [address] Esperanza Sheets Calcium [Mass/Vol] 9.1 mg/dL Normal 8.5-10.1 [facility] Comment on above: Performed By: #### L IPID, CMP, TSH #### [facility] [address] [address] [address] Esperanza Sheets Chloride [Moles/Vol] 100 mmol/L Normal 98-[address] [facility] Comment on above: Performed By: #### L IPID, CMP, TSH #### [facility] [address] [address] [address] Esperanza Sheets CO2 [Moles/Vol] 25.6 mmol/L Normal 21.0-32.0 [facility] Comment on above: Performed By: #### L IPID, CMP, TSH #### [facility] [address] [address] [address] Esperanza Sheets Creatinine [Mass/Vol] 0.83 mg/dL Normal 0.55-1.[address] [facility] Comment on above: Performed By: #### L IPID, CMP, TSH #### [facility] [address] [address] [address] Esperanza Sheets EGFR-AF PARAGUAYAN >60 Normal >=60 [facility] Comment on above: Performed By: #### L IPID, CMP, TSH #### [facility] [address] [address] [address] Esperanza Sheets EGFR-NON AF PARAGUAYAN >60 Normal >=[address] [facility] Comment on above: Performed By: #### L IPID, CMP, TSH #### [facility] [address] [address] [address] Esperanza Sheets Globulin (S) [Mass/Vol] 3.7 g/dL Normal [facility] Comment on above: Performed By: #### L IPID, CMP, TSH #### [facility] [address] [address] [address] Esperanza Sheets Glucose [Mass/Vol] 148 mg/dL Critically high 74-106 [facility] Comment on above: Performed By: #### L IPID, CMP, TSH #### [facility] [address] [address] [address] Esperanza Sheets Potassium [Moles/Vol] 4.0 mmol/L Normal 3.5-5.1 [facility] Comment on above: Performed By: #### L IPID, CMP, TSH #### [facility] [address] [address] [address] Esperanza Sheets Protein [Mass/Vol] 7.5 g/dL Normal 6.4-8.2 [facility] Comment on above: Performed By: #### L IPID, CMP, TSH #### [facility] [address] [address] [address] Esperanza Sheets Sodium [Moles/Vol] 136 mmol/L Normal 136-145 [facility] Comment on above: Performed By: #### L IPID, CMP, TSH #### [facility] [address] [place] [address] Dr. Esperanza Sheets Urea nitrogen [Mass/Vol] 11.0 mg/dL Normal 7.0-18.[address] [facility] Comment on above: Performed By: #### L IPID, CMP, TSH #### [facility] [address] [place] [address] Dr. Esperanza Sheets Urea nitrogen/Creatinine [Mass ratio] 13.3 mg/mg Normal [facility] Comment on above: Performed By: #### L IPID, CMP, TSH #### [facility] [address] [place] [address] Dr. Esperanza Sheets TSHon 12-16-2021 TSH 2.363 uIU/mL Normal 0.358-3.740 [facility] Comment on above: Performed By: #### L IPID, CMP, TSH #### [facility] [address] [place] [address] Dr. Esperanza Sheets Vital Signs Date Time Vital Sign Value Performing Clinician Faci lity 04-28-2024 13:46-0400 Body height 148.6 cm Marybeth Walsh [employer] Work Phone: [facility] 04-28-2024 13:46-0400 Body mass index (BMI) [Ratio] 28.17 kg/m2 Marybeth Vosstrick [employer]GRAMMER Work Phone: [facility] 04-28-2024 13:46-0400 Body temperature 98.1 [degF] Marybeth Walsh [employer] PROGRAMMER Work Phone: [facility] 04-28-2024 13:46-0400 Body weight 62.19 kg Marybeth Walsh [employer] PROGRAMMER Work Phone: [facility] 04-28-2024 13:46-0400 Diastolic blood pressure 74 mm[Hg] Marybeth Walsh [employer] PROGRAMMER Work Phone: [facility] 04-28-2024 13:46-0400 Heart rate 73 /min Marybeth Walsh [employer] PROGRAMMER Work Phone: [facility] 04-28-2024 13:46-0400 Respiratory rate 16 /min Marybeth Walsh [employer] PROGRAMMER Work Phone: [facility] 04-28-2024 13:46-0400 SaO2% (BldA) [Mass fraction] 98 % Marybeth Walsh [employer] PROGRAMMER Work Phone: [facility] 04-28-2024 13:46-0400 Systolic blood pressure 122 mm[Hg] Marybeth Walsh [employer] PROGRAMMER Work Phone: [facility] 03-07-2024 15:44-0400 Body height 148.6 cm Marybeth Walsh [employer] PROGRAMMER Work Phone: [facility] 03-07-2024 15:44-0400 Body mass index (BMI) [Ratio] 25.89 kg/m2 Marybeth Walsh [employer] PROGRAMMER Work Phone: [facility] 03-07-2024 15:44-0400 Body temperature 96.91 [degF] Marybeth Walsh GAMEPLAY PROGRAMMER Work Phone: [facility] 03-07-2024 15:44-0400 Body weight 57.15 kg Marybeth Walsh [employer]PLAY PROGRAMMER Work Phone: [facility] 03-07-2024 15:44-0400 Diastolic blood pressure 74 mm[Hg] Marybeth Awlsh [employer] PROGRAMMER Work Phone: [facility] 03-07-2024 15:44-0400 Heart rate 82 /min Marybeth Walsh GAMEPLAY PROGRAMMER Work Phone: [facility] Comment on above: 98% O2 03-07-2024 15:44-0400 Systolic blood pressure 124 mm[Hg] Marybeth Walsh GAMEPLAY PROGRAMMER Work Phone: [facility] Encounters Encounter Date Encounter Type Care Provider Facility Start: 06-30-2024 End: 07-04-2024 Refill Mira Wong MA [facility] Comment on above: Osteopenia of multip le sites (Primary Dx) Start: 06-27-2024 End: 06-29-2024 Refill Marybeth Walsh [employer] PROGRAMMER Work Phone: [facility] Comment on above: Osteoarthritis of le ft knee, unspecified osteoarthritis type (Primary Dx); Seasonal allergic rhinitis, unspecified trigger Start: 05-30-2024 End: 05-30-2024 Refill Lavonne Smith MA [facility] Comment on above: Primary hypertension (CMS/HCC) Start: 05-18-2024 End: 05-18-2024 Orders Only Marybeth Walsh G[employer]PLAY PROGRAMMER Work Phone: [facility] Comment on above: Type 2 diabetes baltazar itus without complication, without long- term current use of insulin (CMS/HCC) Start: 05-16-2024 End: 05-18-2024 Refill Mira Wong MA [facility] Comment on above: Type 2 diabetes baltazar itus without complication, without long- term current use of insulin (CMS/HCC) (Primary Dx) Start: 04-28-2024 End: 04-28-2024 Clinisync Result Encounter Marybeth Walsh [employer]PLAY PROGRAMMER Work Phone: [facility] Unsolicited Start: 04-28-2024 End: 04-28-2024 Clinisync Result Encounter Marybeth Walsh [employer]PLAY PROGRAMMER Work Phone: [facility] Unsolicited Start: 04-28-2024 End: 04-28-2024 Office outpatient visit 15 minutes Marybeth Walsh [employer] Work Phone: [facility] Comment on above: Need for immunizatio n against influenza (Primary Dx); 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); Primary hypertension (CMS/HCC); Type 2 diabetes mellitus without complication, without long-term current use of insulin (CMS/HCC) Start: 04-28-2024 End: 04-28-2024 ambulatory MARYBETH VOSSTRICK Not Available Start: 04-27-2024 End: 04-27-2024 Clinisync Result Encounter Marybeth Smithk [employer]PLAY PROGRAMMER Work Phone: [facility] Unsolicited Start: 04-27-2024 End: 04-27-2024 Clinisync Result Encounter Marybeth Smithk [employer] PROGRAMMER Work Phone: [facility] Unsolicited Start: 04-27-2024 End: 04-27-2024 Orders Only Marybeth Smithk [employer]PLAY PROGRAMMER Work Phone: [facility] Comment on above: Anemia, unspecified type (Primary Dx) Start: 04-26-2024 End: 04-26-2024 Refill Marybeth Walsh [employer] PROGRAMMER Work Phone: [facility] Comment on [...] 04-01-2024 End: 04-01-2024 Bamboo flowsheet Epi Felix [employer] [facility] Start: 04-01-2024 End: 04-01-2024 Bamboo flowsheet Epi Felix [employer] [facility] Start: 04-01-2024 End: 04-01-2024 ambulatory Epi Felix [employer] [employer] [facility] Comment on above: Chronic 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 (Primary Dx) Start: 03-29-2024 End: 03-29-2024 Bamboo flowsheet Epi Felix [employer] [facility] Start: 03-29-2024 End: 03-29-2024 Bamboo flowsheet Epi Felix [employer] [facility] Start: 03-29-2024 End: 03-29-2024 ambulatory Epi Felix [employer] [facility] Comment on above: Chronic 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 (Primary Dx) Start: 03-25-2024 End: 03-25-2024 Bamboo flowsheet Epi Felix [employer] [facility] Start: 03-25-2024 End: 03-25-2024 Bamboo flowsheet Epi Felix [employer] [facility] Start: 03-25-2024 End: 03-25-2024 ambulatory EPI FELIX [facility] Comment on above: Chronic 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 (Primary Dx) Start: 03-23-2024 End: 03-23-2024 Bamboo flowsheet Epi Felix [employer] [facility] Start: 03-23-2024 End: 03-23-2024 Bamboo flowsheet Epi Felix [employer] [facility] Start: 03-23-2024 End: 03-23-2024 ambulatory EPI FELIX [facility] Comment on above: Chronic 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 (Primary Dx) Start: 03-17-2024 End: 03-17-2024 ambulatory VY DE DIOS [facility] Comment on above: Chronic 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 (Primary Dx) Start: 03-16-2024 End: 03-16-2024 Bamboo flowsheet Brandee Northeim PA Work Phone: [facility] Start: 03-16-2024 End: 03-16-2024 Bamboo flowsheet Brandee Northeim PA Work Phone: [facility] Start: 03-16-2024 End: 03-16-2024 Office outpatient new 30 minutes Brandee Northeim PA Work Phone: [facility] Comment on above: Neoplasm of uncertai n behavior (Primary Dx); Inflamed seborrheic keratosis Start: 03-16-2024 End: 03-16-2024 ambulatory BRANDEEMaribel MCDANIEL Not Available Start: 03-07-2024 End: 03-07-2024 Office outpatient visit 25 minutes Marybeth Walsh [employer]PLAY PROGRAMMER Work Phone: [facility] Comment on above: Primary hypertension (CMS/HCC) (Primary Dx); Type 2 diabetes mellitus without complication, without long-term current use of insulin (CMS/HCC); Gastroesophageal reflux disease without esophagitis; Chronic 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; Neoplasm of uncertain behavior of skin Start: 03-07-2024 End: 03-07-2024 ambulatory MARYBETH SMITHK Not Available Start: 03-07-2024 End: 03-07-2024 Bamboo flowsheet Marybeth Walsh GAMEPLAY PROGRAMMER Work Phone: [facility] Start: 03-07-2024 End: 03-07-2024 Bamboo flowsheet Marybeth Vosstrick [employer]PLAY PROGRAMMER Work Phone: [facility] Start: 12-15-2023 End: 12-15-2023 Emergency department [facility] Start: 10-26-2023 End: 10-26-2023 ambulatory SHAIKH JANELLE Not Available Start: 07-23-2023 End: 07-23-2023 ambulatory SHAIKH JANELLE Not Available Start: 06-25-2023 End: 06-25-2023 ambulatory [facility] Start: 03-25-2022 End: 03-26-2022 ambulatory SHAIKH Yohannes LUIS Facility:[facility]1 Start: 01-02-2022 Encounter for preprocedural cardiovascular examination GARCIA H JANELLE [facility] Start: 12-27-2021 End: 12-28-2021 ambulatory SHAIKH Yohannes LUIS Facility:[facility] Start: 12-27-2021 End: 12-28-2021 Encounter for preprocedural cardiovascular examination SHAIKH Yohannes EDWARDSBrianne Facility: Start: 12-16-2021 End: 12-17-2021 ambulatory SHAIKH Yohannes LUIS Facility: Procedures Date Procedure Procedure Detail Performing Clinician Start: 04-28-2024 ALL CBC WITH AUTO DIFF Marybeth Walsh GAMEPLAY PROGRAMMER Work Phone: Start: 04-27-2024 ALL CBC WITH AUTO DIFF Marybeth Walsh GAMEPLAY PROGRAMMER Work Phone: Start: 03-16-2024 CRYOTHERAPY SKIN LESION Brandee Mcdaniel PA Work Phone: Plan of Treatment Date Care Activity Detail Author Start: 11-01-2025 Glaucoma screening Diabetes: R etinopathy Screening [facility] Start: 04-27-2025 Urine screening for protein Diabetes: Urine Protein Screening [facility] Start: 09-21-2024 End: 09-21-2024 Patient encounter procedure 09/21/2024 1:00 PM EDT Office Visit [facility] [address] [place] [id number] Marybeth Walsh, ABIODUN [address] [place] [phone] [facility] Start: 07-22-2024 Urine screening for protein Diabetes: Urine Protein Screening [facility] Start: 04-28-2024 End: 04-28-2024 Patient encounter procedure 04/28/2024 2:00 PM EDT Office Visit [facility] [address] [place] [phone] Marybeth Walsh NP [address] [place] [address] [facility] Start: 04-28-2024 End: 04-28-2025 TSH W/REFLEX TO FT4 TSH W/REFLEX TO FT4 Lab Routine 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) Expected: 04/28/2024 (Approximate), Expires: 04/28/2025 [facility] Work Phone: Comment on above: Expected: 04/28/2024 (Approximate), Expires: 04/28/2025 Start: 04-27-2024 End: 04-27-2025 CBC W Auto Differential panel - Blood CBC and differential Lab Routine Anemia, unspecified type Expected: 04/27/2024 (Approximate), Expires: 04/27/2025 [facility] Work Phone: Comment on above: Expected: 04/27/2024 (Approximate), Expires: 04/27/2025 Start: 04-27-2024 End: 04-27-2025 Cobalamin (Vitamin B12) [Mass/volume] in Serum or Plasma Vitamin B12 Lab Routine Anemia, unspecified type Expected: 04/27/2024 (Approximate), Expires: 04/27/2025 [facility] Comment on above: Expected: 04/27/2024 (Approximate), Expires: 04/27/2025 Start: 04-27-2024 End: 04-27-2025 Ferritin [Mass/volume] in Serum or Plasma Ferritin Lab Routine Anemia, unspecified type Expected: 04/27/2024 (Approximate), Expires: 04/27/2025 [facility] Comment on above: Expected: 04/27/2024 (Approximate), Expires: 04/27/2025 Start: 04-27-2024 End: 04-27-2025 Iron + transferrin + TIBC Iron + transferrin + TIBC Lab Routine Anemia, unspecified type Expected: 04/27/2024 (Approximate), Expires: 04/27/2025 [facility] Comment on above: Expected: 04/27/2024 (Approximate), Expires: 04/27/2025 Start: 04-27-2024 End: 04-27-2025 Measurement of occult blood in single stool specimen Occult blood x 1, stool Lab Routine Anemia, unspecified type Expected: 04/27/2024 (Approximate), Expires: 04/27/2025 [facility] Comment on above: Expected: 04/27/2024 (Approximate), Expires: 04/27/2025 Start: 04-22-2024 Medicare Annual Wellness (AWV) Medicare Annual Wellness (AWV) [facility] Start: 04-15-2024 End: 04-15-2024 ambulatory 04/15/2024 12:30 PM EDT Treatment [facility] [address] [facility] [place] [address] Vy De Dios, PT [facility] Start: 04-08-2024 End: 04-08-2024 ambulatory 04/08/2024 12:00 PM EDT Treatment [facility] [address] [facility] [address] [place] [address] Epi Felix, [employer] [facility] Start: 04-05-2024 End: 04-05-2024 ambulatory 04/05/2024 12:30 PM EDT Treatment [facility] [address] [facility] [address] [place] [address] Vy De Dios, PT [facility] Start: 04-01-2024 End: 04-01-2024 ambulatory [facility] Comment on above: Arrived Start: 03-29-2024 End: 03-29-2024 ambulatory [facility] Comment on above: Arrived Start: 03-25-2024 End: 03-25-2024 ambulatory [facility] Comment on above: Arrived Start: 03-23-2024 End: 03-23-2024 ambulatory [facility] Comment on above: Arrived Start: 03-17-2024 End: 03-17-2024 ambulatory 03/17/2024 8:30 AM EDT Evaluation [facility] [address] [facility] [place] [address] Vy De Dios, PT [facility] Start: 03-16-2024 End: 03-16-2024 Patient encounter procedure [facility] Comment on above: Neoplasm of uncertai n behavior of skin Start: 03-07-2024 End: 03-07-2024 Patient encounter procedure 03/07/2024 3:30 PM EDT Office Visit [facility] [address] [place] [address] Marybeth Walsh, ABIODUN [address] [facility] [place] [address] Arrived [facility] Comment on above: Arrived Start: 03-07-2024 End: 03-07-2025 CBC W Auto Differential panel - Blood CBC and differential Lab Routine Primary hypertension (CMS/HCC) Type 2 diabetes mellitus without complication, without long-term current use of insulin (CMS/HCC) Expected: 03/07/2024 (Approximate), Expires: 03/07/2025 [facility] Comment on above: Expected: 03/07/2024 (Approximate), Expires: 03/07/2025 Start: 03-07-2024 End: 03-07-2025 Comprehensive metabolic 2000 panel - Serum or Plasma Comprehensive metabolic panel Lab Routine Primary hypertension (CMS/HCC) Type 2 diabetes mellitus without complication, without long-term current use of insulin ([facility]/HCC) Expected: 03/07/2024 (Approximate), Expires: 03/07/2025 [facility] Comment on above: Expected: 03/07/2024 (Approximate), Expires: 03/07/2025 Start: 03-07-2024 End: 03-07-2025 Hemoglobin A1c/Hemoglobin.total in Blood Hemoglobin A1c Lab Routine Type 2 diabetes mellitus without complication, without long-term current use of insulin (CMS/HCC) Expected: 03/07/2024 (Approximate), Expires: 03/07/2025 [facility] Comment on above: Expected: 03/07/2024 (Approximate), Expires: 03/07/2025 Start: 02-28-2024 Influenza vaccination Influenza Vacc ine (#1) [facility] Start: 01-20-2024 Hemoglobin A1c measurement Diabetes: Hemoglobin A1C [facility] Start: 03-31-2020 Medicare Annual Wellness (AWV) Medicare Annual Wellness (AWV) [facility] Microalbumin/Creatin ine panel in random Urine Microalbumin / creatinine urine ratio Lab Routine Primary hypertension (CMS/HCC) Type 2 diabetes mellitus without complication, without long-term current use of insulin ([facility]/HCC) Ordered: 03/07/2024 [facility] Work Phone: Comment on above: Ordered: 03/07/2024 Immunizations Immunization Date Immunization Notes Care Provider Jeovanny little 04-28-2024 influenza, seasonal, injectable, preservative free Marybeth Walsh G[employer] PROGRAMMER Work Phone: [facility] 04-22-2023 Influenza, High-dose Seasonal, Quadrivalent, Preservative Free Marybeth Walsh GAMEPLAY PROGRAMMER Work Phone: [facility] 04-22-2023 influenza virus vaccine, unspecified formulation Marybeth Walsh GAMEPLAY PROGRAMMER Work Phone: [facility] 05-16-2021 Influenza, High-dose Seasonal, Quadrivalent, Preservative Free Marybeth Walsh GAMEPLAY PROGRAMMER Work Phone: [facility] 05-17-2019 influenza, high dose seasonal, preservative-free Marybeth Walsh GAMEPLAY PROGRAMMER Work Phone: [facility] 06-14-2018 pneumococcal conjuga te vaccine, 13 valent Marybeth Walsh GAMEPLAY PROGRAMMER Work Phone: [facility] [facility] 06[facility]2018 Seasonal trivalent influenza vaccine, adjuvanted, preservative free Marybeth Walsh GAMEPLAY PROGRAMMER Work Phone: [facility] 05-29-2016 influenza, injectabl e, quadrivalent, preservative free Marybeth Walsh GAMEPLAY PROGRAMMER Work Phone: [facility] Payers Date Payer Category Payer Private Health Insurance [id number] 2007 Medicare [id number] 1959 Medicare [id number] 1959 Private Health Insurance CLI [id number] 1942 Unknown [id number] 2.16.84 [id number] 1942 Unknown [id number] 2.16.84 0.1.434261.3.579.2.593 1942 Unknown [id number] 2.16.84 0.1.150186.3.579.2.593 1942 Unknown [id number] 2.16.8 40.1.312340.3.579.2.1286 1942 Unknown [id number] 2.16.84 0.1.507466.3.579.2.1286 1942 Unknown [id number] 2.16.84 0.1.967936.3.579.2.1286 1942 Unknown [id number] 2.16.84 0.1.694995.3.579.2.1259 1942 Unknown [id number] 2.16.84 0.1.565289.3.579.2.1259 1942 Unknown [id number] 2.16.84 0.1.200194.3.579.2.1259 1942 Unknown [id number] 2.16.84 0.1.454571.3.579.2.1259 1942 Unknown [id number] 2.16.84 0.1.752714.3.579.2.1259 1942 Unknown [id number] 2.16.84 0.1.187737.3.579.2.1259 1942 Unknown [id number] 2.16.84 0.1.316007.3.579.2.1259 1942 Unknown [id number] 2.16.84 0.1.676567.3.579.2.1259 1942 Unknown [id number] 2.16.84 0.1.123739.3.579.2.1259 1942 Unknown [id number] 2.16.84 0.1.934592.3.579.2.1259 1942 Unknown [id number] 2.16.84 0.1.183147.3.579.2.1259 1942 Unknown [id number] 2.16.84 0.1.822598.3.579.2.1259 Social History Date Type Detail Facility Start: 10-26-2023 [facility] Start: 10-26-2023 Tobacco use and exposure Smokeless tobacco non-user [facility] Start: 03-16-2024 End: 04-28-2024 Alcoholic beverage intake Lifetime non-drinker (finding) [facility] Start: 03-07-2024 End: 03-16-2024 History of Social function [facility] Start: 03-07-2024 End: 03-16-2024 Tobacco use panel [facility] Start: 1940 Sex assigned at Not on file [facility] NEGATED: Highlighted rowStart: NINF History of tobacco use Passive smoker [facility] Medical Equipment Procedure Code Equipment Code Equipment Origin al Text Equipment Identifier Dates [id number] Start: 05-18-2024 End: 05-16-2024 Clinical Notes 03-07-2024 to 06-30-2024 Telephone Encounter - Mira Wong MA - 06/30/2024 8:25 AM ESTTelephone Encounter - Mira Wong MA - 06/30/2024 8:25 AM ESTTelephone Encounter - Mira Wong MA - 05/17/2024 2:48 PM EST Note Date & Type Note Facility 06-30-2024 Telephone encount er Note 04/28/2024 09/21/2024 [facility] 06-30-2024 Miscellaneous Notes Formattin g of this note might be different from the original. 04/28/2024 09/21/2024 documented in this encounter [facility] 05-17-2024 Telephone encount er Note Correct they would like her to have the kit I sent to you. And all supplies [facility] 05-17-2024 Miscellaneous Notes Formattin g of this note might be different from the original. Correct they would like her to have the kit I sent to you. And all supplies Pts insurance would like her to have a Accu check meter, will need script for that as well as lancets and strips, I found the strips and pended them but can not find the meter or lancets, may have to call pharmacy. documented in this encounter [facility] 05-16-2024 Telephone encount er Note Pts insurance would like her to have a Accu check meter, will need script for that as well as lancets and strips, I found the strips and pended them but can not find the meter or lancets, may have to call pharmacy. [facility] 05-02-2024 History of Presen t illness Narrative Associated Problem(s): Type 2 diabetes mellitus without complication, without long-term current use of insulin (CMS/HCC) Has stopped taking Metformin on her own. States she has been told by family members it is a bad drug. Most recent labs: hemoglobin A1C 6.0% At goal without medications. Continue to monitor. No episode of hypoglycemia No medication adverse effects reported by the patient. Patient educated on lifestyle modifications, dietary restrictions, signs and symptoms of hypoglycemia/hyperglycemia and importance of eating regular consistent meals. Stressed upon importance of checking blood glucose at home and bring blood glucose log to appointments. All questions, concerns answered and addressed. Encouraged to call office if persistent hypoglycemia/hyperglycemia on home glucose monitoring noted. Associated Problem(s): Primary hypertension (CMS/HCC) Currently taking amlodipine 5mg Lisinopril 10mg Does not Check BP at home; Denies orthostatic changes, dizziness, cough, shortness of breath, swelling in extremities. Continue current regimen. Images from the original note were not included. Subjective Patient ID: Jumana Leal is a 83 y.o. female who presents for No chief complaint on file.. 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 Denies injury or trauma Is firm to touch, vascular. Referral sent to Dermatology- referred to Hand surgeon. Will be seeing in June. Chronic Back Pain- Completed PT. Patient reports pain has subsided as long as she continues doing the exercises. DMII: Has stopped taking Metformin on her own. States she has been told by family members it is a bad drug. Most recent labs: hemoglobin A1C 6.0% At goal without medications. Continue to monitor. No episode of hypoglycemia No medication adverse effects reported by the patient. Patient educated on lifestyle modifications, dietary restrictions, signs and symptoms of hypoglycemia/hyperglycemia and importance of eating regular consistent meals. Stressed upon importance of checking blood glucose at home and bring blood glucose log to appointments. All questions, concerns answered and addressed. Encouraged to call office if persistent hypoglycemia/hyperglycemia on home glucose monitoring noted. Education: Check blood sugars daily, notify if <70 or >200. Take medications (pills or insulin) as directed. Monitor for s/s of hypoglycemia (sweaty, dizziness, nausea, vomiting, or shakiness). Watch for increase in thirst, urination, or appetite. Inspect feet frequently monitoring for open wounds , and also recommend yearly eye exam. Pt should attempt to remain as physically active as chronic conditions allow, as well as trying to follow a diet low in carbohydrates, and simple sugars. Review of Systems Constitutional: Negative for activity change, appetite change, chills, diaphoresis, fatigue, fever and unexpected weight change. HENT: Negative for congestion, ear pain, rhinorrhea, sinus pressure, sinus pain, sneezing, sore throat, trouble swallowing and voice change. Eyes: Negative for visual disturbance. Respiratory: Negative for cough, chest tightness, shortness of breath and wheezing. Cardiovascular: Negative for chest pain, palpitations and leg swelling. Gastrointestinal: Negative for abdominal distention, abdominal pain, blood in stool, constipation, diarrhea and vomiting. Genitourinary: Negative for decreased urine volume, dysuria, flank pain, frequency, hematuria and urgency. Musculoskeletal: Negative for arthralgias, gait problem, joint swelling and myalgias. Skin: Negative for rash. Neurological: Negative for dizziness, tremors, syncope, weakness, light-headedness and headaches. Psychiatric/Behavioral: Negative for decreased concentration and suicidal ideas. The patient is not nervous/anxious. Hematological: Does not bruise/bleed easily. Endocrine: Negative for cold intolerance, heat intolerance, polydipsia, polyphagia and polyuria. Objective Physical Exam Vitals reviewed. Constitutional: Appearance: Normal appearance. HENT: Head: Normocephalic and atraumatic. Right Ear: Tympanic membrane normal. Left Ear: Tympanic membrane normal. Nose: Nose normal. Mouth/Throat: Mouth: Mucous membranes are moist. Pharynx: Oropharynx is clear. Eyes: Pupils: Pupils are equal, round, and reactive to light. Cardiovascular: Rate and Rhythm: Normal rate and regular rhythm. Pulses: Normal pulses. Heart sounds: Normal heart sounds. Pulmonary: Effort: Pulmonary effort is normal. Breath sounds: Normal breath sounds. Abdominal: General: Abdomen is flat. Bowel sounds are normal. Palpations: Abdomen is soft. Musculoskeletal: General: Normal range of motion. Cervical back: Normal range of motion. Skin: General: Skin is warm and dry. Capillary Refill: Capillary refill takes less than 2 seconds. Neurological: General: No focal deficit present. Mental Status: She is alert and oriented to person, place, and time. Psychiatric: Mood and Affect: Mood normal. Behavior: Behavior normal. Assessment/Plan Problem List Items Addressed This Visit Primary hypertension ([facility]) Currently taking amlodipine 5mg Lisinopril 10mg Does not Check BP at home; Denies orthostatic changes, dizziness, cough, shortness of breath, swelling in extremities. Continue current regimen. Relevant Medications lisinopril 10 MG tablet Type 2 diabetes mellitus without complication, without long-term current use of insulin ([facility]) Has stopped taking Metformin on her own. States she has been told by family members it is a bad drug. Most recent labs: hemoglobin A1C 6.0% At goal without medications. Continue to monitor. No episode of hypoglycemia No medication adverse effects reported by the patient. Patient educated on lifestyle modifications, dietary restrictions, signs and symptoms of hypoglycemia/hyperglycemia and importance of eating regular consistent meals. Stressed upon importance of checking blood glucose at home and bring blood glucose log to appointments. All questions, concerns answered and addressed. Encouraged to call office if persistent hypoglycemia/hyperglycemia on home glucose monitoring noted. 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 documented in this encounter [facility] 04-15-2024 History of Presen t illness Narrative [...] things to stabilize herself. Precautions: Left TKA, [place] Subjective: Pt states she has been doing [...] heel for trial with ambulation. 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 documented in this encounter [facility] 04-05-2024 History of Presen t illness Narrative [...] things to stabilize herself. Precautions: Left TKA, [place] Subjective: Pt states she is doing well. [...] purchase right heel for trial with ambulation. Retirement Goals: To be met in 10 weeks [...] sign below. Date: documented in this encounter [facility] 03-16-2024 History of Presen t illness Narrative Images from the original note were not included. Lesions: Location: left thumb Duration: years Quality: painful Modifying factors: aggravated by hot or cold things Associated symptoms: rough, tender Treatments: none Location # 2: scalp/right shoulder Duration: months Quality: itchy Modifying factors: rubs on clothing, aggravated by picking Associated symptoms: rough, scaly Treatments: none New patient, referred by Marybeth Walsh NP All pertinent medical history, medications, and allergies were reviewed. General Exam: alert , oriented to person, place, and time , normal affect, well appearing Unaccompanied A focused exam completed based on patient reported problems, see below: 1. Neoplasm of uncertain behavior Left Thumbnail 1.0 x 0.9 cm erythematous, subcutaneous nodule Ambulatory referral to Orthopaedic Surgery Suspect this may be a cyst or gout. Discussed the only way to definitively diagnose the lesion would be to have it removed and tested. Discussed treatment options including observation vs. excision. Patient elected for excision as the lesion is slowly enlarging. Discussed that I will refer her to hand surgeon, Dr. Selin Lawler in case there is any involvement underlying joint space. Patient understands that there may be affects to the nail with removal. Related Procedures Ambulatory referral to Dermatology 2. Inflamed seborrheic keratosis (2) Right Occipital Scalp, Right Upper Back [place] and brown stuck on verrucous scaly papule with surrounding erythema The patient was informed that symptomatic seborrheic keratoses are benign growths that become inflamed, itchy, tender, traumatized, caught on clothing, or bleed. Symptomatic lesions can be treated with cryotherapy or curretage. Thicker lesions treated with cryotherapy may require more than one treatment. The patient was instructed to notify the office if abnormal redness or tenderness develops at the treatment site. Cryotherapy today, see procedure note. Diagnosis: Inflamed seborrheic keratosis Indication: Inflamed Consent: Verbal consent was obtained and risks were discussed, including, but not limited to risks of scarring, darker or ux developer pigmentary changes, recurrence, incomplete removal and infection. Method: Liquid nitrogen was used to treat the lesion(s) with two 5-10 second freeze-thaw cycles Number of lesions treated: 2 Post-procedure instructions: Instructions were given orally and in writing. The office will be contacted if the lesion fails to resolve despite treatment, or if a side effect develops such as abnormal crusting, scabbing, redness or tenderness Cryotherapy, skin lesion - Right Occipital Scalp, Right Upper Back Next Visit: prn for any new/changing lesions documented in this encounter [facility] 03-07-2024 History of Presen t illness Narrative Associated Problem(s): Neoplasm of uncertain behavior of skin L thumb Has been present for 3-4 years States is painful at times, especially when touching hot or cold things. Denies injury or trauma Is firm to touch, vascular. Referral sent to Dermatology Associated Problem(s): Primary hypertension (CMS/HCC) Currently taking amlodipine 5mg Lisinopril 10mg Does not Check BP at home; Denies orthostatic changes, dizziness, cough, shortness of breath, swelling in extremities. Continue current regimen. Associated Problem(s): Gastroesophageal reflux disease without esophagitis Taking Omeprazole 20mg States symptoms are well controlled. Continue current regimen. Associated Problem(s): Type 2 diabetes mellitus without complication, without long-term current use of insulin (CMS/HCC) Most recent labs: hemoglobin A1C 5.9% Does not check BG at home. Metformin 500mg No episode of hypoglycemia No medication adverse effects reported by the patient. Patient educated on lifestyle modifications, dietary restrictions, signs and symptoms of hypoglycemia/hyperglycemia and importance of eating regular consistent meals. Stressed upon importance of checking blood glucose at home and bring blood glucose log to appointments. All questions, concerns answered and addressed. Encouraged to call office if persistent hypoglycemia/hyperglycemia on home glucose monitoring noted. Continue current regimen Subjective Patient ID: Jumana Leal is a 83 y.o. female who presents for Sinus Problem and Med Refill. HPI Would like handgoranp alvaro States she can only walk for 10 minutes at a time without having to stop or hold onto things to help; wall. Had LTKR done 3-4 years ago. Was sent to PT; did not complete. Would like new order for PT. HTN: Currently taking amlodipine 5mg Lisinopril 10mg Does not Check BP at home; Denies orthostatic changes, dizziness, cough, shortness of breath, swelling in extremities. Continue current regimen. DMII: Most recent labs: hemoglobin A1C 5.9% Does not check BG at home. Metformin 500mg No episode of hypoglycemia No medication adverse effects reported by the patient. Patient educated on lifestyle modifications, dietary restrictions, signs and symptoms of hypoglycemia/hyperglycemia and importance of eating regular consistent meals. Stressed upon importance of checking blood glucose at home and bring blood glucose log to appointments. All questions, concerns answered and addressed. Encouraged to call office if persistent hypoglycemia/hyperglycemia on home glucose monitoring noted. Continue current regimen GERD: Taking Omeprazole 20mg States symptoms are well controlled. Continue current regimen. Review of Systems Constitutional: Negative for activity change, appetite change, chills, diaphoresis, fatigue, fever and unexpected weight change. HENT: Negative for congestion, ear pain, rhinorrhea, sinus pressure, sinus pain, sneezing, sore throat, trouble swallowing and voice change. Eyes: Negative for visual disturbance. Respiratory: Negative for cough, chest tightness, shortness of breath and wheezing. Cardiovascular: Negative for chest pain, palpitations and leg swelling. Gastrointestinal: Negative for abdominal distention, abdominal pain, blood in stool, constipation, diarrhea and vomiting. Genitourinary: Negative for decreased urine volume, dysuria, flank pain, frequency, hematuria and urgency. Musculoskeletal: Positive for arthralgias, back pain, gait problem and myalgias. Negative for joint swelling. Skin: Negative for rash. Neurological: Negative for dizziness, tremors, syncope, weakness, light-headedness and headaches. Psychiatric/Behavioral: Negative for decreased concentration and suicidal ideas. The patient is not nervous/anxious. Hematological: Does not bruise/bleed easily. Endocrine: Negative for cold intolerance, heat intolerance, polydipsia, polyphagia and polyuria. Objective Physical Exam Vitals reviewed. Constitutional: Appearance: Normal appearance. HENT: Head: Normocephalic and atraumatic. Right Ear: Tympanic membrane normal. Left Ear: Tympanic membrane normal. Nose: Nose normal. Mouth/Throat: Mouth: Mucous membranes are moist. Pharynx: Oropharynx is clear. Eyes: Pupils: Pupils are equal, round, and reactive to light. Cardiovascular: Rate and Rhythm: Normal rate and regular rhythm. Pulses: Normal pulses. Heart sounds: Normal heart sounds. Pulmonary: Effort: Pulmonary effort is normal. Breath sounds: Normal breath sounds. Abdominal: General: Abdomen is flat. Bowel sounds are normal. Palpations: Abdomen is soft. Musculoskeletal: General: Tenderness present. Normal range of motion. Cervical back: Normal range of motion. Skin: General: Skin is warm and dry. Capillary Refill: Capillary refill takes less than 2 seconds. Neurological: General: No focal deficit present. Mental Status: She is alert and oriented to person, place, and time. Psychiatric: Mood and Affect: Mood normal. Behavior: Behavior normal. Assessment/Plan Problem List Items Addressed This Visit Primary hypertension ([facility]) - Primary Currently taking amlodipine 5mg Lisinopril 10mg Does not Check BP at home; Denies orthostatic changes, dizziness, cough, shortness of breath, swelling in extremities. Continue current regimen. Relevant Orders Microalbumin / creatinine urine ratio Comprehensive metabolic panel CBC and differential Type 2 diabetes mellitus without complication, without long-term current use of insulin ([facility]) Most recent labs: hemoglobin A1C 5.9% Does not check BG at home. Metformin 500mg No episode of hypoglycemia No medication adverse effects reported by the patient. Patient educated on lifestyle modifications, dietary restrictions, signs and symptoms of hypoglycemia/hyperglycemia and importance of eating regular consistent meals. Stressed upon importance of checking blood glucose at home and bring blood glucose log to appointments. All questions, concerns answered and addressed. Encouraged to call office if persistent hypoglycemia/hyperglycemia on home glucose monitoring noted. Continue current regimen Relevant Medications metFORMIN (Glucophage) 500 MG tablet Other Relevant Orders Microalbumin / creatinine urine ratio Hemoglobin A1c Comprehensive metabolic panel CBC and differential Gastroesophageal reflux disease without esophagitis Taking Omeprazole 20mg States symptoms are well controlled. Continue current regimen. Chronic back pain Relevant Orders Ambulatory referral to Physical Therapy Neoplasm of uncertain behavior of skin L thumb Has been present for 3-4 years States is painful at times, especially when touching hot or cold things. Denies injury or trauma Is firm to touch, vascular. Referral sent to Dermatology Relevant Orders Ambulatory referral to Dermatology documented in this encounter [facility] 03-07-2024 Instructions Marybeth Walsh NP - 03/07/2024 3:30 PM EDT Education: Check blood sugars daily, notify if <70 or >200. Take medications (pills or insulin) as directed. Monitor for s/s of hypoglycemia (sweaty, dizziness, nausea, vomiting, or shakiness). Watch for increase in thirst, urination, or appetite. Inspect feet frequently monitoring for open wounds , and also recommend yearly eye exam. Pt should attempt to remain as physically active as chronic conditions allow, as well as trying to follow a diet low in carbohydrates, and simple sugars. Referral sent to Dermatology-They call you! Referral sent to Physical therapy- they will call you! documented in this encounter [facility] Evaluation note Diagnosis Chronic 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- Primary [facility] Diagnosis Chronic 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- Primary [facility] Diagnosis Primary hypertension (CMS/HCC)- Primary Unspecified essential [...] sciatica- Primary [facility] Diagnosis Primary hypertension (CMS/HCC)- Primary Unspecified essential [...] David's thyroiditis (CMS/HCC) [facility] Diagnosis Primary hypertension (CMS/HCC)- Primary Unspecified essential [...] unspecified type- Primary [facility] Diagnosis Primary hypertension (CMS/HCC)- Primary Unspecified essential [...] sciatica Neoplasm of uncertain behavior of skin Need for immunization against influenza- Primary Need for prophylactic vaccination and inoculation against influenza 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) Primary hypertension (CMS/HCC) Unspecified essential hypertension Type 2 diabetes mellitus without complication, without long-term current use of insulin (CMS/HCC) [facility] Primary hypertension (CMS/HCC)- Primary Unspecified essential [...] sciatica Neoplasm of uncertain behavior of skin Need for immunization against influenza- Primary Need for prophylactic vaccination and inoculation against influenza 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) Primary hypertension (CMS/HCC) Unspecified essential hypertension Type 2 diabetes mellitus without complication, without long-term current use of insulin (CMS/HCC) Type 2 diabetes mellitus without complication, without long-term current use of insulin (CMS/HCC)- Primary [facility] Diagnosis Primary hypertension (CMS/HCC)- Primary Unspecified essential [...] sciatica Neoplasm of uncertain behavior of skin Need for immunization against influenza- Primary Need for prophylactic vaccination and inoculation against influenza 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) Primary hypertension (CMS/HCC) Unspecified essential hypertension Type 2 diabetes mellitus without complication, without long-term current use of insulin (CMS/HCC) Type 2 diabetes mellitus without complication, without long-term current use of insulin (CMS/HCC) [facility] encounter [facility]* Diagnosis Primary hypertension (CMS/HCC)- Primary Unspecified essential [...] sciatica Neoplasm of uncertain behavior of skin Need for immunization against influenza- Primary Need for prophylactic vaccination and inoculation against influenza 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) Primary hypertension (CMS/HCC) Unspecified essential hypertension Type 2 diabetes mellitus without complication, without long-term current use of insulin (CMS/HCC) Primary hypertension (CMS/HCC) Unspecified essential hypertension documented [facility]* Diagnosis Neoplasm of uncertain behavior- Primary Neoplasm of uncertain behavior, site unspecified Inflamed seborrheic keratosis documented in this encounter [facility]* Diagnosis Primary hypertension (CMS/HCC)- Primary Unspecified essential hypertension Type 2 diabetes mellitus without complication, without long-term current use of insulin ([facility]/HCC) Gastroesophageal reflux disease without esophagitis Esophageal reflux Chronic 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 Neoplasm of uncertain behavior of skin documented in this encounter [facility]* Diagnosis Chronic 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- Primary documented in this encounter [facility]* Diagnosis Primary hypertension (CMS/HCC)- Primary Unspecified essential [...] sciatica Neoplasm of uncertain behavior of skin Need for immunization against influenza- Primary Need for prophylactic vaccination and inoculation against influenza 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) Primary hypertension ([facility]/HCC) Unspecified essential hypertension Type 2 diabetes mellitus without complication, without long-term current use of insulin ([facility]) Osteoarthritis of left knee, unspecified osteoarthritis type- Primary Seasonal allergic rhinitis, unspecified trigger documented in this encounter [facility]* Diagnosis Primary hypertension ([facility]/HCC)- Primary Unspecified essential hypertension Type 2 diabetes mellitus without complication, without long-term current use of insulin ([facility]/HCC) Other hyperlipidemia ([facility]/HCC) Osteopenia of multiple sites 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 ([facility]/HCC) Hypothyroidism due to Dvaid's thyroiditis ([facility]/HCC)- Primary Primary hypertension ([facility]/HCC) Unspecified essential hypertension Type 2 diabetes mellitus without complication, without long-term current use of insulin (CMS/HCC) Primary hypertension ([facility]/HCC)- Primary Unspecified essential hypertension Type 2 diabetes mellitus without complication, without long-term current use of insulin ([facility]/HCC) Gastroesophageal reflux disease without esophagitis Esophageal reflux Chronic 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 Neoplasm of uncertain behavior of skin Need for immunization against influenza- Primary Need for prophylactic vaccination and inoculation against influenza 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 ([facility]/HCC) Primary hypertension ([facility]/HCC) Unspecified essential hypertension Type 2 diabetes mellitus without complication, without long-term current use of insulin ([facility]/HCC) Osteopenia of multiple sites- Primary documented in this encounter [facility] for referral (narrative)* Consultation (Routine) - Pending Review Specialty Diagnoses / Procedures Referred By Contjorge t Referred To Contact Orthopaedic Surgery Diagnoses Neoplasm of uncertain behavior Brandee Mcdaniel PA [address] [place] [address] Selin Lawler MD [address] [place] [address] Referral ID Status Reason Start Date Expiration Date Visits Requested Visits Authorized [id number] Pending Review Specialty Services Required 03/16/2024 09/12/2024 1 1 MARITZA Mercedes for referral (narrative)* Consultation (Routine) - Authorized Specialty Diagnoses / Procedures Referred By Contac t Referred To Contact Dermatology Diagnoses Neoplasm of uncertain behavior of skin Procedures CT OFFICE/OUTPATIENT NEW HIGH MDM 60 MINUTES Marybeth Walsh NP [address] [place] [address] Jared Elder MD [address] [address] Referral ID Status Reason Start Date Expiration Date Visits Requested Visits Authorized [id number] Authorized Specialty Services Required 03/07/2024 09/03/2024 1 1 * Rehabilitation - Outpatient (Routine) - Authorized Specialty Diagnoses / Procedures Referred By Contac t Referred To Contact Physical Therapy Diagnoses Chronic 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 Procedures CT OFFICE/OUTPATIENT NEW HIGH MDM 60 MINUTES Marybeth Walsh NP [address] [place] [address] [facility] Referral ID Status Reason Start Date Expiration Date Visits Requested Visits Authorized [id number] Authorized Specialty Services Required 03/07/2024 09/03/2024 10 10 MARITZA Mercedes for visit Narrative* Rehabilitation - Outpatient (Routine) - Closed Specialty Diagnoses / Procedures Referred By Contac t Referred To Contact Physical Therapy Diagnoses Chronic 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 Procedures CT OFFICE/OUTPATIENT NEW HIGH MDM 60 MINUTES Marybeth Walsh NP [address] [place] [address] Phone: tel: fax: [facility] Referral ID Status Reason Start Date Expiration Date V isits Requested Visits Authorized [id number] Closed Specialty Services Required 03/07/2024 09/03/2024 25 30 [facility] Narrative* Consultation (Routine) - Closed Specialty Diagnoses / Procedures Referred By Contjorge t Referred To Contact Dermatology Diagnoses Neoplasm of uncertain behavior of skin Procedures CT OFFICE/OUTPATIENT NEW HIGH MDM 60 MINUTES Marybeth Walsh NP [address] [place] [address] Jared Elder MD [address] [place] [address] Referral ID Status Reason Start Date Expiration Date V isits Requested Visits Authorized [id number] Closed Specialty Services Required 03/07/2024 09/03/2024 1 1 [facility] Summary Purpose Family History No Family History Records FoundNo Family History Records FoundNo Family History Records FoundNo Family History Records Found Advance Directives No Advanced Directives Records FoundNo Advanced Directives Records FoundNo Advanced Directives Records FoundNo Advanced Directives Records Found Additional Source Comments INFORMATION SOURCE (unrecogn ized section and content) DATE CREATED AUTHOR 01/31/2022 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 Relationship Specialty Start Date End Date Yannick Bills MD [address] [place] [address] PCP - General Family Medicine 02/10/24 Marybeth Walsh NP [address] [place] [address] Nurse Practitioner Family Medicine 02/10/24 Balloon Pilot Relationship Specialty Start Date End Date Yannick Bills MD [address] [place] [address] PCP - General Family Medicine 02/10/24 Marybeth Walsh NP [address] [place] [address] Nurse Practitioner Family Medicine 02/10/24 Balloon Pilot Relationship Specialty Start Date End Date Yannick Bills MD [address] [place] [address] PCP - General Family Medicine 02/10/24 Marybeth Walsh NP [address] [place] [address] Nurse Practitioner Family Medicine 02/10/24 Balloon Pilot Relationship Specialty Start Date End Date Yannick Bills MD [address] [place] [address] PCP - General Family Medicine 02/10/24 Marybeth Walsh NP [address] [place] [address] Nurse Practitioner Family Medicine 02/10/24 Balloon Pilot Relationship Specialty Start Date End Date Yannick Bills MD [address] [place] [address] PCP - General Family Medicine 02/10/24 Marybeth Walsh NP [address] [place] [address] Nurse Practitioner Family Medicine 02/10/24 Balloon Pilot Relationship Specialty Start Date End Date Yannick Bills MD [address] [place] [address] PCP - General Family Medicine 02/10/24 Marybeth Walsh NP [address] [place] [address] Nurse Practitioner Family Medicine 02/10/24 Balloon Pilot Relationship Specialty Start Date End Date Yannick Bills MD [address] [place] [address] PCP - General Family Medicine 02/10/24 Marybeth Walsh NP [address] [place] [address] Nurse Practitioner Family Medicine 02/10/24 Balloon Pilot Relationship Specialty Start Date End Date Yannick Bills MD [address] [place] [address] PCP - General Family Medicine 02/10/24 Marybeth Walsh NP [address] [place] [address] Nurse Practitioner Family Medicine 02/10/24 Balloon Pilot Relationship Specialty Start Date End Date Yannick Bills MD [address] [place] [address] PCP - General Family Medicine 02/10/24 Marybeth Walsh NP [address] [place] [address] Nurse Practitioner Family Medicine 02/10/24 Balloon Pilot Relationship Specialty Start Date End Date Yannick Bills MD [address] [place] [address] PCP - General Family Medicine 02/10/24 Marybeth Walsh NP [address] [place] [address] Nurse Practitioner Family Medicine 02/10/24 Balloon Pilot Relationship Specialty Start Date End Date Yannick Bills MD [address] [place] [address] PCP - General Family Medicine 02/10/24 Marybeth Walsh NP [address] [place] [address] Nurse Practitioner Family Medicine 02/10/24 Balloon Pilot Relationship Specialty Start Date End Date Yannick Bills MD [address] [place] [address] PCP - General Family Medicine 02/10/24 Marybeth Walsh NP [address] [place] [address] Nurse Practitioner Family Medicine 02/10/24 Balloon Pilot Relationship Specialty Start Date End Date Yannick Bills MD [address] [place] [address] PCP - General Family Medicine 02/10/24 Marybeth Walsh NP [address] [place] [address] Nurse Practitioner Family Medicine 02/10/24 Balloon Pilot Relationship Specialty Start Date End Date Yannick Bills MD [address] [place] [address] PCP - General Family Medicine 02/10/24 Marybeth Walsh NP [address] [place] [address] Nurse Practitioner Family Medicine 02/10/24 Balloon Pilot Relationship Specialty Start Date End Date Yannick Blils MD [address] [place] [address] PCP - General Family Medicine 02/10/24 Marybeth Walsh NP [address] [place] [address] Nurse Practitioner Family Medicine 02/10/24 Balloon Pilot Relationship Specialty Start Date End Date Yannick Bills MD [address] [place] [address] PCP - General Family Medicine 02/10/24 Marybeth Walsh NP [address] [place] [address] Nurse Practitioner Family Medicine 02/10/24 Balloon Pilot Relationship Specialty Start Date End Date Yannick Bills MD [address] [place] [address] PCP - General Family Medicine 02/10/24 Marybeth Walsh NP [address] [place] [address] Nurse Practitioner Family Medicine 02/10/24 Balloon Pilot Relationship Specialty Start Date End Date Yannick Bills MD [address] [place] [address] PCP - General Family Medicine 02/10/24 Marybeth Walsh NP [address] [place] [address] Nurse Practitioner Family Medicine 02/10/24 Reason for Visit (unrecogniz ed section and content) Specialty Diagnoses / Procedures Referred By Contjorge t Referred To Contact Physical Therapy Diagnoses Chronic 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 Procedures CT OFFICE/OUTPATIENT NEW HIGH MDM 60 MINUTES Marybeth Walsh NP [address] [place] [address] [facility] Referral ID Status Reason Start Date Expiration Date Visits Requested Visits Authorized [id number] Authorized Specialty Services Required 03/07/2024 09/03/2024 25 30 Reason Onset Date Comments Med Refill 04/26/2024 Reason Onset Date Comments Med Refill 05/16/2024 Reason Onset Date Comments Med Refill 05/30/2024 Reason Comments Sinus Problem Med Refill Referral ID Status Reason Start Date Expiration Date Visits Requested Visits Authorized [id number] Authorized Specialty Services Required 03/07/2024 09/03/2024 10 10 Referral ID Status Reason Start Date Expiration Date Visits Requested Visits Authorized [id number] Authorized Specialty Services Required 03/07/2024 09/03/2024 25 25 Reason Onset Date Comments Med Refill 06/27/2024 Reason Onset Date Comments Med Refill 06/30/2024 FOR RECORDS PERTAINING TO PATIENTS WHO ARE [...] BE BASED ON THE PRIMARY CLINICAL RECORDS. [facility] provides no warranty or guarantee of the accuracy or completeness of information in this document.
[2024-09-26 08:38] LABS: TSH W/ REFLEX FT4 5.273 uIU/mL (0.358-3.740)
== END 2024-09-26 07:34 | disposition home or self-care (01) ==
LOC: LAB 07:36
DX: E06.3 Autoimmune thyroiditis (principal)
CPT/HCPCS: 36415; 84439; 84443

== ENCOUNTER 2024-12-02 09:41 | Outpatient (OUT) | payer MEDICARE, SELFPAY ==
--- OUTSIDE RECORDS SUMMARY | 2024-11-29 14:40 | XMS_ITS | Encounter Summary ---
Author Organization [facility] Address [address] [place] [address] Care Team Providers Care Commercial Lease Administrator Name Role Phone Yannick Bills MD Primary Care Provider [phone] Marybeth Walsh MERINGUER Unavailable [phone] Reason for Visit * Reason Comments Back Pain Encounter Details Date Type Department Care Team (Late st Contact Info) Description 11/29/2024 2:40 PM EDT Office Visit [facility] [address] [place] [address] Gabrielle Landa NP [address] [place] [phone] Chronic 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 (Primary Dx); Primary hypertension (CMS/HCC); Type 2 diabetes mellitus without complication, without long-term current use of insulin; Bilateral hip pain Social History Tobacco Use Types Packs/Day Years Used Date Smoking Tobacco: Never Passive Smoke Exposure: Never Smokeless Tobacco: Never Alcohol Use Standard Drinks/Week Comments Never 0 (1 standard drink = 0.6 oz pur e alcohol) PHQ-2 Answer Date Recorded Patient Health Questionnaire-2 Score 0 09/27/2024 Comments No Sex and Gender Information Value Date Recorded Sex Assigned at Not on file Legal Sex Female 7:58 PM EDT Gender Identity Not on file Sexual Orientation Not on file documented as of this encounter Last Filed Vital Signs Vital Sign Reading Time Taken Comments Blood Pressure 150/70 11/29/2024 2:45 PM EDT Pulse 78 11/29/2024 2:45 PM EDT Temperature 36.9 C (98.5 F) 11/29/2024 2:45 PM EDT Respiratory Rate 18 11/29/2024 2:45 PM EDT Oxygen Saturation 99% 11/29/2024 2:45 PM EDT Inhaled Oxygen Concentration - - Weight 56.5 kg (124 lb 9.6 oz) 11/29/2024 2:45 P M EDT Height - - Body Mass Index 25.6 04/28/2024 1:46 PM EDT documented in this encounter Patient Instructions * Patient Instructions* Gabrielle Landa NP - 11/29/2024 2:40 PM EDT Check xrays Consider PT depending on xray results I will wait to order PT until knowing the results documented in this encounter Progress Notes * Gabrielle Landa NP - 11/29/2024 3:16 PM EDTAssociated Problem(s): Chronic back pain Will check xrays Consider PT Exam fairly normal, suspect possible generalized weakness causes some falls * NIKOLAS CHICAS - 11/29/2024 2:40 PM EDT Lower left side of back and left hip bone pain- pain started a couple months ago. Pt states she hasbeen falling she falls a lot out of bed and she tries to protect her knees however she tends to land on her hips. Pt states she last fell last week, she [place] at the mall on Thursday when trying to lean. She felt fine. Pt states she has been using her cane or holding on to furniture when walking shefeels she leans more and does not have good balance; very wobbly she stated. No dizziness no lightheadedness. Pt does trip a lot does not pick up attendant feet. Pt does not have blurry vision and does not feel that is part of her falling. Pt believes she falls once a week. She feels that maybe she tries to do things too fast and does not slow down she is always on the go and moving. Walking is getting worse than before. * Gabrielle Landa, ABIODUN - 11/29/2024 2:40 PM EDT Images from the original note were not included. Tomasa Ash is a 84 y.o. female presents with chief complaint of Back Pain HPI: Has been having episodes of falling, no dizziness or lightheadedness, no blacking out, usually trips over feet. Does have back pain w walking or chores around. Occ NT in legs, no NT in feet. Legs do not feel week. No hx of back surgery Not sure if has arthritis in back Aspercream dose help SUBJECTIVE: MEDICATIONS: Current Outpatient Medications Medication Instructions amLODIPine (NORVASC) 5 mg, Oral, Daily RT atorvastatin (LIPITOR) 20 mg, Oral, Daily Blood Glucose Monitoring Suppl (True Metrix Meter) w/Device kit 1 each, Does not apply, 4 times daily PRN calcium 500 mg, Oral, 2 times daily with meals cholecalciferol (VITAMIN D-3) 50 mcg, Oral, Daily glucose blood test strip 1 each, Other, 4 times daily PRN, Use as instructed levothyroxine (SYNTHROID) 50 mcg, Oral, Daily before breakfast lisinopril 10 mg, Oral, Every 24 hours loratadine (CLARITIN) 10 mg, Oral, Daily metFORMIN (GLUCOPHAGE) 500 mg, Oral, Daily with breakfast omeprazole (PRILOSEC) 20 mg, Oral, Every 24 hours ALLERGIES: Allergies Allergen Reactions Bee Venom REVIEW OF SYMPTOMS: Review of Systems Constitutional: Negative for appetite change, chills and fever. HENT: Negative for congestion, ear pain and sore throat. Eyes: Negative for pain, discharge, redness and visual disturbance. Respiratory: Negative for cough, shortness of breath and wheezing. Cardiovascular: Negative for chest pain, palpitations and leg swelling. Gastrointestinal: Negative for abdominal pain, blood in stool, constipation, diarrhea, nausea and vomiting. Genitourinary: Negative for difficulty urinating, dysuria and frequency. Musculoskeletal: Positive for back pain. Negative for arthralgias, joint swelling and myalgias. Skin: Negative for rash and wound. Neurological: Negative for dizziness, tremors, seizures, syncope and headaches. Psychiatric/Behavioral: Negative for behavioral problems, self-injury and suicidal ideas. The patient is not nervous/anxious. Hematological: Does not bruise/bleed easily. Endocrine: Negative for polydipsia, polyphagia and polyuria. Allergic/Immunologic: Negative for environmental allergies and food allergies. PAST MEDICAL HISTORY Past Medical History: Diagnosis Date Allergic rhinitis, mild Anemia At moderate risk for fall Cholecystitis 2020 Cholelithiasis Chronic back pain Diabetes ([facility]) Diabetes type 2, controlled ([facility]) Edema, unspecified type Gastroesophageal reflux disease HLD (hyperlipidemia) ([facility]) HTN (hypertension) ([facility]) Hypothyroidism, adult ([facility]) Knee pain, unspecified chronicity, unspecified laterality Left foot pain Osteoporosis ([facility]) Overweight Plantar wart, left foot Restless leg Sinusitis Past Surgical History: Procedure Laterality Date BLADDER SUSPENSION BREAST BIOPSY Left CHOLECYSTECTOMY 06/2020 Laparoscopic HYSTERECTOMY family history includes Cancer in her father; Diabetes in her mother; Hypertension in her mother. OBJECTIVE: Visit Vitals BP 150/70 (BP Location: Left arm, Patient Position: Sitting, BP Cuff Size: Adult long) Pulse 78 Temp 98.5 ??F (Temporal) Resp 18 Wt 124 lb 9.6 oz SpO2 99% BMI 25.60 kg/m?? OB Status Hysterectomy Smoking Status Never BSA 1.53 m?? Physical Exam Vitals and nursing note reviewed. Constitutional: General: She is not in acute distress. Appearance: Normal appearance. HENT: Head: Normocephalic and atraumatic. Right Ear: External ear normal. Left Ear: External ear normal. Nose: Nose normal. Mouth/Throat: Mouth: Mucous membranes are moist. Eyes: Extraocular Movements: Extraocular movements intact. Conjunctiva/sclera: Conjunctivae normal. Cardiovascular: Rate and Rhythm: Normal rate and regular rhythm. Pulses: Normal pulses. Heart sounds: Normal heart sounds. Pulmonary: Effort: Pulmonary effort is normal. Breath sounds: Normal breath sounds. No wheezing or rhonchi. Abdominal: General: Bowel sounds are normal. There is no distension. Palpations: Abdomen is soft. There is no mass. Tenderness: There is no abdominal tenderness. Musculoskeletal: General: Normal range of motion. Cervical back: Normal range of motion and neck supple. Right lower leg: No edema. Left lower leg: No edema. Comments: Near full lumbar ROM, -SLR X2, DTR's 1-2+ bilat patellar/ achilles MMT 5/5 bilat LE Neg FABERS test as well Skin: General: Skin is warm and dry. Capillary Refill: Capillary refill takes 2 to 3 seconds. Findings: No rash. Neurological: General: No focal deficit present. Mental Status: She is alert and oriented to person, place, and time. Cranial Nerves: No cranial nerve deficit. Motor: No weakness. Gait: Gait normal. Comments: Neg romberg, neg ulnar drift Psychiatric: Mood and Affect: Mood normal. Behavior: Behavior normal. Thought Content: Thought content normal. Judgment: Judgment normal. ASSESSMENT AND PLAN: No follow-ups on file. Problem List Items Addressed This Visit Primary hypertension ([facility]) - Primary Please check blood pressure daily and record DASH diet Limit caffeine Take medication as directed Contact office if chest pain, pressure, dizziness, shortness of breath, swelling legs Recommend slow position changes Current meds; amlodipine, lisinopril Type 2 diabetes mellitus without complications Check blood sugars daily, notify if <70 or >200. Take medications (pills or insulin) as directed. Monitor for s/s of hypoglycemia (sweaty, dizziness, nausea, vomiting, or shakiness). Watch for increase in thirst, urination, or appetite. Inspect feet frequently monitoring for open wounds , andalso recommend yearly eye exam. Pt should attempt to remain as physically active as chronic conditions allow, as well as trying to follow a diet low in carbohydrates, and simple sugars. Meds; metformin , statin, natalya A1c 5.9% 09/27/24 Chronic back pain Will check xrays Consider PT Exam fairly normal, suspect possible generalized weakness causes some falls Relevant Orders XR lumbar spine 2 or 3 views Bilateral hip pain Relevant Orders XR hips bilateral 3 or 4 views * Gabrielle Landa NP - 11/29/2024 7:00 AM EDTAssociated Problem(s): Type 2 diabetes mellitus without complications Check blood sugars daily, notify if <70 or >200. Take medications (pills or insulin) as directed. Monitor for s/s of hypoglycemia (sweaty, dizziness, nausea, vomiting, or shakiness). Watch for increase in thirst, urination, or appetite. Inspect feet frequently monitoring for open wounds , andalso recommend yearly eye exam. Pt should attempt to remain as physically active as chronic conditions allow, as well as trying to follow a diet low in carbohydrates, and simple sugars. Meds; metformin , statin, natalya A1c 5.9% 09/27/24 * Gabrielle Landa NP - 11/29/2024 7:00 AM EDTAssociated Problem(s): Primary hypertension ([facility]) Please check blood pressure daily and record DASH diet Limit caffeine Take medication as directed Contact office if chest pain, pressure, dizziness, shortness of breath, swelling legs Recommend slow position changes Current meds; amlodipine, lisinopril documented in this encounter Plan of Treatment Upcoming Encounters Date Type Department Care Team (Late st Contact Info) Description 03/29/2025 1:00 PM EDT Office Visit [facility] [address] [place] [address] Gabrielle Landa NP [address] [place] [address] 10/03/2025 11:00 AM EDT Office Visit [facility] [address] [place] [address] Gabrielle Landa NP [address] [place] [address] Scheduled Orders Name Type Priority Associated Diagnoses Orde r Schedule XR lumbar spine 2 or 3 views Imaging Routine Chronic 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 Expected: 11/29/2024, Expires: 11/29/2025 XR hips bilateral 3 or 4 views Imaging Routine Bilateral hip pain Expected: 11/29/2024 (Approximate), Expires: 11/29/2025 documented as of this encounter Visit Diagnoses Diagnosis Chronic 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- Primary Primary hypertension (CMS/HCC) Unspecified essential hypertension Type 2 diabetes mellitus without complication, without long-term current use of insulin Bilateral hip pain Pain in joint, pelvic region and thigh documented in this encounter Additional Health Concerns Assessment Noted Time PHQ-9 Depression Total Score: 1 09/28/19 25 1:21 PM EDT documented as of this encounter Care Teams Commercial Lease Administrator Relationship Specialty Start Date End Date Yannick Bills MD [address] [place] [address] PCP - General Family Medicine 02/10/24 Marybeth Walsh NP [address] [place] [address] Nurse Practitioner Family Medicine 02/10/24 documented as of this encounter
--- OUTSIDE RECORDS SUMMARY | 2024-12-02 09:45 | XMS_ITS | Referral Summary ---
Author Organization [facility] Address [address] [place] [address] Care Team Providers Care Airport Operations Crew Member Name Role Phone Unavailable Primary Care Provider Unavailabl e Social History Tobacco Use Types Packs/Day Years Used Date Smoking Tobacco: Never Assessed [place] Safety & Environment Answer Date Rec orded Fear of Current or Ex-Partner Not on file Emotionally Abused Not on file 08/20/2023 Physically Abused Not on file 08/20/2023 Sexually Abused Not on file 08/20/2023 Physically or Sexually Abused Not on file Sex and Gender Information Value Date Recorded Sex Assigned at Not on file Gender Identity Not on file Sexual Orientation Not on file Plan of Treatment Not on file
--- OUTSIDE RECORDS SUMMARY | 2024-12-02 09:45 | XMS_ITS | Encounter Summary ---
Author Organization [facility] Address [address] [place] [address] Care Team Providers Care Transformer Inspector Name Role Phone Yannick Bills MD Primary Care Provider [phone] Marybeth Walsh DOOR PERSON Unavailable [phone] Encounter Details Date Type Department Care Team ([facility] Contact Info) Description 05/17/2024 Orders Only [facility] [address] [place] [phone] Marybeth Walsh NP Social History Tobacco Use Types Packs/Day Years Used Date Smoking Tobacco: Never Passive Smoke Exposure: Never Smokeless Tobacco: Never Alcohol Use Standard Drinks/Week Comments Never 0 (1 standard drink = 0.6 oz pur e alcohol) PHQ-2 Answer Date Recorded Patient Health Questionnaire-2 Score 0 03/07/2024 Comments No Sex and Gender Information Value Date Recorded Sex Assigned at Not on file Legal Sex Female 7:58 PM EDT Gender Identity Not on file Sexual Orientation Not on file documented as of this encounter Plan of Treatment Upcoming Encounters Date Type Department Care Team (Late Contact Info) Description 03/29/2025 1:00 PM EDT Office Visit [facility] [address] [place] [phone] Gabrielle Landa NP [address] [place] [address] 10/03/2025 11:00 AM EDT Office Visit [facility] [address] [place] [address] Gabrielle Landa, ABIODUN [address] [place] [address] documented as of this encounter Visit Diagnoses Not on filedocumented in this encounter Care Teams Transformer Inspector Relationship Specialty Start Date End Date Yannick Bills MD [address] [place] [phone] PCP - General Family Medicine 02/10/24 Marybeth Walsh NP [address] [place] [address] Nurse Practitioner Family Medicine 02/10/24 documented as of this encounter
--- OUTSIDE RECORDS SUMMARY | 2024-12-02 09:45 | XMS_ITS | Encounter Summary ---
Author Organization [facility] Address [address] [place] [address] Care Team Providers Care Manager Clinical Services Name Role Phone Yannick Bills MD Primary Care Provider [phone] Marybeth Walsh DOPE FIRER Unavailable [phone] Encounter Details Date Type Department Care Team ([facility] Contact Info) Description 05/17/2024 Orders Only [facility] [address] [place] [phone] Marybeth Walsh NP Social History Tobacco Use [...] 03/29/2025 1:00 PM EDT Office Visit [facility] [address] [place] [phone] Gabrielle Landa NP [address] [place] [address] 10/03/2025 11:00 AM EDT Office Visit [facility] [address] [place] [address] Gabrielle Landa, ABIODUN [address] [place] [address] documented as of this encounter Visit Diagnoses Not on filedocumented in this encounter Care Teams Manager Clinical Services Relationship Specialty Start Date End Date Yannick Bills MD [address] [place] [phone] PCP - General Family Medicine 02/10/24 Marybeth Walsh NP [address] [place] [address] Nurse Practitioner Family Medicine 02/10/24 documented as of this encounter
--- OUTSIDE RECORDS SUMMARY | 2024-12-02 09:45 | XMS_ITS | Clinical Summary ---
Author Organization [facility] Address [address] [place] [address] Care Team Providers Care Supplies Packer Name Role Phone Unavailable Primary Care Provider [...] Orientation Not on file Plan of Treatment Health Maintenance Due Date Last Done Comments Depression Screening 1952 Adult Tetanus 1964 Zoster Vaccines (1 of 2) 1992 Fall Risk Screening 09/27/2007 Pneumococcal Vaccine: 65+ Ye ars (1 of 1 - PCV) 09/27/2007 COVID-19 Vaccine (2023-2 5 season) 2024 Influenza Vaccine (Season Ended) 2025 HIB Vaccines Aged Out No longer eligi ble based on patient's age to complete this topic HPV Vaccines Aged Out No longer eligi ble based on patient's age to complete this topic IPV Vaccines Aged Out No longer eligi ble based on patient's age to complete this topic Meningococcal B Vaccine Aged Out No l onger eligible based on patient's age to complete this topic Meningococcal Vaccine Aged Out No anayeli elle eligible based on patient's age to complete this topic Rotavirus Vaccines Aged Out No longer eligible based on patient's age to complete this topic
--- OUTSIDE RECORDS SUMMARY | 2024-12-02 09:45 | XMS_ITS | Clinical Summary ---
Author Organization [facility] Address [address] [place] [address] Care Team Providers Care Rebar Worker Name Role Phone Kahlil Quentin Ajit Primary Care Provider Social History Tobacco Use Types Packs/Day Years Used Date Smoking Tobacco: Never Assessed Comments Unknown Sex and Gender Information Value Date Recorded Sex Assigned at Not on file Legal Sex Female 10:06 AM EST Gender Identity Not on file Sexual Orientation Not on file Plan of Treatment Health Maintenance Due Date Last Done Comments Anxiety Screening 1960 Depression Screening 1960 DTaP,Tdap,Td Vaccine (1 - Tdap) 1961 Diabetes Screening 09/27/1987 Pneumococcal Vaccine: 50+ (1 of 1 - PCV) 1992 Shingrix Vaccine (1 of 2) 1992 Bone Density Screening 09/27/2007 RSV Vaccine (1 - 1-dose 75+ series) 2017 Covid-19 Vaccine ( - season) 2024 Advance Directive Discussion 06/29/2024 Influenza Vaccine (Season Ended) 2025 Care Teams Rebar Worker Relationship Specialty Start Date End Date Quentin Guillory [address] [place] [phone] PCP - General 07/18/04
--- OUTSIDE RECORDS SUMMARY | 2024-12-02 09:45 | XMS_ITS | Clinical Summary ---
Author Organization [employer] Address [id number] [address] [place] [address] Care Team Providers Care Finance Executive Name Role Phone Shaikh BLAYNE Vasquez Primary Care Provider [phone] Allergies Active Allergy Reactions Criticality Noted Date Comments Bee Venom Protein (Honey Bee) 2019 Medications alendronate (FOSAMAX) 35 mg tablet Take 1 tablet (35 mg total) by mouth once a week. 11/28/2016 Active SYNTHROID 50 mcg tablet Take 1 tablet (50 mcg total) by mouth in the morning. 10/27/2016 Active lisinopril (PRINIVIL,ZESTR IL) 20 mg tablet Take 0.5 tablets (10 mg total) by mouth in the morning. 11/10/2016 Active omeprazole (PriLOSEC) 20 mg capsule 11/28/2016 Active simvastatin (ZOCOR) 40 mg tablet Take 40 mg by mouth daily. Active amLODIPine (NORVASC) 5 mg tablet Take 1 tablet (5 mg total) by mouth in the morning. Active atorvastatin (LIPITOR) 10 mg tablet Take 4 tablets (40 mg total) by mouth in the morning. Active ibuprofen (MOTRIN) 600 mg tablet Take 1 tablet (600 mg total) by mouth every 6 (six) hours as needed for pain. 30 tablet 03/05/2023 Active loratadine (CLARITIN) 10 mg tablet Take 1 tablet (10 mg total) by mouth in the morning. Active metFORMIN (FORTAMET) 500 MG (OSM) 24 hr tablet Take 1 tablet (500 mg total) by mouth daily with breakfast. Active Active Problems Problem Noted Date Diagnosed Date Acute cholecystitis 07/08/2020 Immunizations Immunization Administration Dates Next Due Tdap 10/19/2018 Family History Medical History Relation Name Comments Diabetes Brother Colon cancer Father Diabetes Mother Breast cancer Neg Hx Relation Name Status Comments Brother Father Mother Social History Tobacco Use Types Packs/Day Years Used Date Smoking Tobacco: Never Smokeless Tobacco: Never Tobacco Cessation:Counseling Given: Not Answered Alcohol Use Standard Drinks/Week Comments No 0 (1 standard drink = 0.6 oz pur e alcohol) Social Connection and Isolat ion Panel [NHANES] Answer Date Recorded In a typical week, how many times do you talk on the phone with family, friends, or neighbors? Three times a week 07/08/2020 How often do you get togethe r with friends or relatives? More than three times a week 07/08/2020 How often do you attend chur ch or denominational services? Never 07/08/2020 Do you belong to any clubs o r organizations such as shinto groups, unions, fraternal or athletic groups, or school groups? No 07/08/2020 How often do you attend meet ings of the clubs or organizations you belong to? Never 07/08/2020 Are you , , di vorced, , never , or living with a partner? 07/08/2020 Overall Financial Resource Strain (CARDIA) Answe r Date Recorded How hard is it for you to pa y for the very basics like food, housing, medical care, and heating? Not hard at all 07/08/2020 PHQ-2 Answer Date Recorded Total Score 0 06/25/2023 [facility] - Occupational Stress Questionnaire Answer Date Recorded Do you feel stress - tense, restless, nervous, or anxious, or unable to sleep at night because your mind is troubled all the time - these days? Not at all 07/08/2020 Exercise Vital Sign Answer Date Recorde d On average, how many days pe r week do you engage in moderate to strenuous exercise (like a brisk walk)? 2 days 07/08/2020 On average, how many minutes do you engage in exercise at this level? 10 min 07/08/2020 PRAPARE - Transportation Answer Date Re corded In the past 12 months, has l ack of transportation kept you from medical appointments or from getting medications? No 06/29 In the past 12 months, has l ack of transportation kept you from meetings, work, or from getting things needed for daily living? No 07/08/2020 Childcare Answer Date Recorded Do problems getting child ca re make it difficult for you to work or study? No 07/08/2020 Employment Answer Date Recorded Do you need help finding a [facility] career center and/or a training program? No 07/08/2020 Hunger Screening Answer Date Recorded Within the past 12 months we worried whether our food would run out before we got money to buy more. Never True 12/15/2023 Within the past 12 months th e food we bought just didn't last and we didn't have money to get more. Never True 12/15/2023 Purpose - Life Answer Date Recorded Purpose and direction in life Unknown Comments No Sex and Gender Information Value Date Recorded Sex Assigned at Not on file Legal Sex Female 11:23 AM EDT Gender Identity Not on file Sexual Orientation Not on file Last Filed Vital Signs Vital Sign Reading Time Taken Comments Blood Pressure 128/68 12/15/2023 3:15 PM EDT Pulse 96 12/15/2023 1:55 PM EDT Temperature 36.7 C (98 F) 12/15/2023 1:49 PM EDT Respiratory Rate 20 12/15/2023 1:55 PM EDT Oxygen Saturation 97% 12/15/2023 3:00 PM EDT Inhaled Oxygen Concentration - - Weight 62.6 kg (138 lb) 12/15/2023 1:49 PM EDT Height 144.8 cm (4' 9 ) 12/15/2023 1:49 PM EDT Body Mass Index 29.86 12/15/2023 1:49 PM EDT Plan of Treatment Health Maintenance Due Date Last Done Comments Zoster (Shingles) Vaccine (1 of 2) 1992 Fall Risk Screening 09/27/2007 COVID-19 Vaccine (2023-2 5 season) 2024 02/16/2023, 05/13/2022, 11/26/2021, Additional history exists Depression Screening 06/25/2024 06/25/2023 Tobacco Screening 12/14/2024 12/15/2023 Influenza Vaccine 02/27/2025 04/22/2023, , 05/17/2019, Additional history exists DTaP,Tdap and Td Vaccines (2 - Td or Tdap) 10/19/2028 10/19/2018 Goals Goal Patient Goal Type Associated Problems Recent Progress Patient-Stated? Author home General Yes Rosario Duron LSW Note: Evaluation of progress towards goal: had surgery today Medical Devices Not on file Insurance MEDICARE AET Advance Directives * Full Code (Latest Code Status on File) Date Activated Date Inactivated Comments 07/09/2020 8:26 AM 07/10/2020 4:57 PM Care Teams Finance Executive Relationship Specialty Start Date End Date Shaikh Vasquez MD PCP - General Internal Medicine 07/04/20
--- OUTSIDE RECORDS SUMMARY | 2024-12-02 09:45 | XMS_ITS | Encounter Summary ---
Author Organization [facility] Address [address] [place] [address] Care Team Providers Care Golf Club Head Inspector And Adjuster Name Role Phone Yannick Bills MD Primary Care Provider Marybeth Walsh NP Unavailable [phone] Encounter Details Date Type Department Care Team ([facility] Contact Info) Description 11/28[facility]2024 [facility] [address] [place] [address] Gabrielle Landa NP [address] [place] [address] Social History Tobacco Use Types Packs/Day Years [...] on file documented as of this encounter Miscellaneous Notes * Telephone Encounter - NIKOLAS CHICAS - 11/28/2024 3:05 PM EDT Text Restuarant Crew Worker This is Tomasa Ash. I would like to schedule an appointment with Gabrielle. [phone]. Thank you. documented in this encounter Plan of Treatment Upcoming Encounters Date Type Department Care Team ([facility] Contact Info) Description 03/29/2025 1:00 PM EDT Office Visit [facility] [address] [place] [address] Gabrielle Landa, ABIODUN [address] [place] [address] 10/03/2025 11:00 AM EDT Office Visit [facility] [address] [place] [address] Gabrielle Landa, ABIODUN [address] [place] [phone] documented as of this encounter Visit Diagnoses Not on filedocumented in this encounter Additional Health Concerns Assessment Noted Time PHQ-9 Depression Total Score: 1 09/28/19 25 1:21 PM EDT documented as of this encounter Care Teams Golf Club Head Inspector And Adjuster Relationship Specialty Start Date End Date Yannick Bills MD [address] [place] [phone] PCP - General Family Medicine 02/10/24 Marybeth Walsh NP [address] [place] [address] Nurse Practitioner Family Medicine 02/10/24 documented as of this encounter
--- OUTSIDE RECORDS SUMMARY | 2024-12-02 09:45 | XMS_ITS | Encounter Summary ---
Author Organization [facility] Address [address] [place] [address] Care Team Providers Care Manager Of Employee Relations Name Role Phone Yannick Bills MD Primary Care Provider [phone] Marybeth Walsh LASER BEAM MACHINE OPERATOR Unavailable [phone] Encounter Details Date Type Department Care Team ([facility] Contact Info) Description 05/02/2024 Abstract [facility] [address] [place] [address] Marybeth Walsh NP Social History Tobacco Use [...] Upcoming Encounters Date Type Department Care Team ([facility] Contact Info) Description 03/29/2025 1:00 PM EDT Office [facility] [address] [place] [address] Gabrielle Landa NP [address] [place] [address] 10/03/2025 11:00 AM EDT [facility] [address] [place] [address] Gabrielle Landa, ABIODUN [address] [place] [address] documented as of this encounter Visit Diagnoses Not on filedocumented in this encounter Care Teams Manager Of Employee Relations Relationship Specialty Start Date End Date Yannick Bills MD [address] [place] [address] PCP - General Family Medicine 02/10/24 Marybeth Walsh NP [address] [place] [address] Nurse Practitioner Family Medicine 02/10/24 documented as of this encounter
--- OUTSIDE RECORDS SUMMARY | 2024-12-02 09:45 | XMS_ITS | Encounter Summary ---
Author Organization [facility] Address [address] [place] [address] Care Team Providers Care Costume Draper Name Role Phone Shaikh BLAYNE Vasquez Primary Care Provider [phone] Shaikh BLAYNE Vasquez Primary Care Provider [phone] Yannick Bills MD Primary Care Provider [phone] Marybeth Walsh NP Unavailable [phone] Encounter Details Date Type Department Care Team (Late Contact Info) Description 01/12/2023 Abstract [facility] [address] [facility] [address] [place] [address] Emiliano Hui PA [address] [facility] [address] [place] [address] Social History Tobacco Use Types Packs/Day Years Used Date Smoking Tobacco: Never Smokeless Tobacco: Never Tobacco Cessation:Counseling Given: Not Answered Alcohol Use Standard Drinks/Week Comments Never 0 (1 standard drink = 0.6 oz pur e alcohol) Comments Unknown Sex and Gender Information Value Date Recorded Sex Assigned at Not on file Legal Sex Female 7:58 PM EDT Gender Identity Not on file Sexual Orientation Not on file documented as of this encounter Plan of Treatment Upcoming Encounters Date Type Department Care Team (Late Contact Info) Description 03/29/2025 1:00 PM EDT [facility] [address] [place] [address] Gabrielle Landa NP [address] [place] [address] 10/03/2025 11:00 AM EDT Office Visit [facility] [address] [place] [address] Gabrielle Landa NP [address] [place] [phone] documented as of this encounter Visit Diagnoses Not on filedocumented in this encounter Care Teams Costume Draper Relationship Specialty Start Date End Date Shaikh Vasquez MD PCP - General Internal Medicine 01/12/23 07/22/23 Shaikh Vasquez MD [address] [place] [phone] PCP - General Internal Medicine 07/23/23 02/09/24 Yannick Bills MD [address] [place] [address] PCP - General Family Medicine 02/10/24 Marybeth Walsh NP [address] [place] [phone] Nurse Practitioner Family Medicine 02/10/24 documented as of this encounter
--- OUTSIDE RECORDS SUMMARY | 2024-12-02 09:45 | XMS_ITS | Encounter Summary ---
Author Organization [facility] Address [address] [place] [address] Care Team Providers Care Beer Runner Name Role Phone Yannick Bills MD Primary Care Provider [phone] Marybeth Walsh NP Unavailable [phone] Encounter Details Date Type Department Care Team (Late Contact Info) Description 11/29/[address] [facility] [address] [place] [address] Gabrielle Landa NP [address] [place] [address] Social History Tobacco Use Types Packs/Day Years [...] 03/29/2025 1:00 PM EDT [facility] [address] [place] [address] Gabrielle Landa NP [address] [place] [address] 10/03/2025 11:00 AM EDT Office Visit [facility] [address] [place] [address] Gabrielle Landa NP [address] [place] [address] documented as of this encounter Visit Diagnoses Not on filedocumented in this encounter Additional Health Concerns Assessment Noted Time PHQ-9 Depression Total Score: 1 09/28/19 25 1:21 PM EDT documented as of this encounter Care Teams Beer Runner Relationship Specialty Start Date End Date Yannick Bills MD [address] [place] [phone] PCP - General Family Medicine 02/10/24 Marybeth Walsh NP [address] [place] [address] Nurse Practitioner Family Medicine 02/10/24 documented as of this encounter
--- NOTE | 2024-12-02 09:49 | XR_ITS ---
The [address] [address] Patient Name: JUMANA LEAL MRN: [id number] date: 1940 Sex: F Assigned Patient Location: [facility] Current Patient Location: [facility] Accession/Order Number: [id number] Exam Date: 12/02/2024 11:03 Report Date: 12/02/2024 11:08 At the request of: SHIRAZ CRISTINA NP Procedure: XR hip FIDELIA CLINICAL DATA: Chronic midline low back pain and pain at the hips. Patient fell 3 weeks ago. LUMBAR SPINE - 3 views COMPARISON: 03/26/2023 There is osteopenia. 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 There are no acute compression fractures or significant change in alignment when allowing for the scoliotic curvature. There is multilevel disc space narrowing, endplate sclerosis, spurring and vacuum phenomenon. The SI joints are intact and show mild sclerosis. No paraspinal soft tissue abnormalities are present. XR/XR hip FIDELIA IMPRESSION: OSTEOPENIA, SCOLIOSIS AND MULTILEVEL DEGENERATIVE CHANGES. NO ACUTE BONY FINDINGS. BILATERAL HIPS - 2 views each COMPARISON: None AP and frog-lateral views were obtained. There is osteopenia. No acute fractures or dislocation are noted. The hip joint spaces are maintained. Minor marginal spurring is seen at the superior acetabula. Mild enthesophyte formation is present at the greater trochanters and ischial tuberosities. The soft tissues are within normal limits. IMPRESSION: OSTEOPENIA AND MILD DEGENERATIVE CHANGES. No acute bony injury. Impression dictated by: Bernadette Causey M.D. 12/02/2024 11:08 AM Dictation Location: [place] [address] Electronically authenticated by: [id number] Y Date: 12/02/2024 11:08
--- NOTE | 2024-12-02 09:49 | XR_ITS ---
The [address] [address] Patient Name: JUMANA LEAL MRN: [id number] date: 1940 Sex: F Assigned Patient Location: [facility] Current Patient Location: [facility] Accession/Order Number: [id number] Exam Date: 12/02/2024 11:03 Report Date: 12/02/2024 11:08 At the request of: SHRIAZ CRISTINA NP Procedure: XR hip FIDELIA CLINICAL DATA: Chronic midline low back pain and pain at the hips. Patient fell 3 weeks ago. LUMBAR SPINE - 3 views COMPARISON: 03/26/2023 There is osteopenia. 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 There are no acute compression fractures or significant change in alignment when allowing for the scoliotic curvature. There is multilevel disc space narrowing, endplate sclerosis, spurring and vacuum phenomenon. The SI joints are intact and show mild sclerosis. No paraspinal soft tissue abnormalities are present. XR/XR lumbar spine 2-3V IMPRESSION: OSTEOPENIA, SCOLIOSIS AND MULTILEVEL DEGENERATIVE CHANGES. NO ACUTE BONY FINDINGS. BILATERAL HIPS - 2 views each COMPARISON: None AP and frog-lateral views were obtained. There is osteopenia. No acute fractures or dislocation are noted. The hip joint spaces are maintained. Minor marginal spurring is seen at the superior acetabula. Mild enthesophyte formation is present at the greater trochanters and ischial tuberosities. The soft tissues are within normal limits. IMPRESSION: OSTEOPENIA AND MILD DEGENERATIVE CHANGES. No acute bony injury. Impression dictated by: Bernadette Causey M.D. 12/02/2024 11:08 AM Dictation Location: [place] [address] Electronically authenticated by: [id number] Y Date: 12/02/2024 11:08
--- OUTSIDE RECORDS SUMMARY | 2024-12-02 10:04 | XMS_ITS | CCD ---
Author Organization [facility] [place] [facility] Care Team Providers Care Endoscopy Nurse Name Role Phone FAWWAD, GARCIA H Attending [...] Referring Unavailable FAWWAD, GARCIA Primary Care Unavailable GABRIELLE DOBSON Attending Unavailable FAWWAD, GARCIA Primary Care Unavailable Yannick Bills MD Primary Care Provider Walsh CERTIFIED PHARMACY TECHNICIAN, Marybeth Unavailable Walsh CERTIFIED PHARMACY TECHNICIAN, Marybeth Unavailable GABRIELLE LANDA Attending Unavailable GABRIELLE LANDA Attending Unavailable MARYBETH WALSH Attending Unavailabl BRANDEE Vilchis Attending Unavailable MARYBETH WALSH Referring Unavailabl VY Baxter Attending Unavailable MARYBETH WALSH Referring Unavailabl EPI Gonzalez Attending Unavailable MARYBETH WALSH Referring Unavailabl e EPI FELIX Attending Unavailable MARYBETH WALSH Referring Unavailabl EPI Gonzalez Attending Unavailable MARYBETH WALSH Referring Unavailabl EPI Gonzalez Attending Unavailable MARTINA, MARYBETH Referring UnavailVY Carbajal Attending MARYBETH Ramos Referring VY Sharma Attending MARYBETH Ramos Referring MARYBETH Arias Attending Barbara newby Allergies Allergy Classification Reported Allergen(s) Allergy Type Date of Onset Reaction(s) Facility (1 source) BEE VENOM PROTEIN (HONEY BEE); Translations: [BEE VENOM PROTEIN (HONEY BEE)] Propensity to adverse reactions to drug (disorder) 0 [facility] (20 sources) Honey bee venom Propensity to adverse reactions 0 [facility] Medications Current Medications Medication Drug Class(es) Dates Sig (Normalized) Sig (Original) atorvastatin 20 mg oral tablet (20 sources) HMG-CoA Reductase Inhibitor Start: 03-28-2024 End: 03-28-2025 take 1 tablet by mouth once daily atorvastatin (Lipitor) 20 MG tablet Indications: Other hyperlipidemia Take 1 tablet (20 mg) by mouth Daily 30 tablet 11 03/28/2024 03/28/2025 Active Start: 12-12-2022 atorvastatin ( Lipitor) 20 MG tablet 12/12/2022 Active Blood Glucose Monitoring Suppl (True Metrix Meter) w/Device kit (20 sources) Start: 05-18-2024 Blood Glucose Monitoring Suppl (True Metrix Meter) w/Device kit Indications: Type 2 diabetes mellitus without complication, without long-term current use of insulin 1 each 4 (four) times a day as needed (Hyperglycemia/hypoiglycemia) 1 kit 05/18/2024 Active Start: 05-18-2024 Blood Glucose Monitoring Suppl (True [...] complication, without long-term current use of insulin ([facility]) 1 each 4 (four) times a day as needed (Hyperglycemia/hypoiglycemia) 1 kit 04/28/2024 Active End: 04-28-2024 [address] (True Metrix Meter) w/Device kit 04/28/2024 Discontinued (Reorder) Blood Glucose Mo nitoring Suppl (True Metrix Meter) w/Device kit Active Calcium (2 sources) Phosphate Binder, Calcium Start: 09-27-2024 End: 12-26-2024 take 1 tablet by mouth in the morning calcium 500 MG tablet Indications: Osteopenia of multiple sites Take 1 tablet (500 mg) by mouth in the morning and 1 tablet (500 mg) in the evening. Take with meals. 180 tablet 1 09/27/2024 12/26/2024 Active cholecalciferol 0.05 mg oral capsule (20 sources) Vitamin D Start: 07-04-2024 End: 12-26-2024 take 1 capsule by mouth once daily cholecalciferol (Vitamin D-3) 50 MCG (2000 UT) capsule Indications: Osteopenia of multiple sites Take 1 capsule (50 mcg) by mouth Daily 90 capsule 1 09/27/2024 12/26/2024 Active End: 06-30-2024 take 1 capsule by mouth in the morning cholecalciferol (Vitamin D-3) 50 MCG (2000 UT) capsule Take 2,000 Units by mouth in the morning. 06/30/2024 Discontinued (Reorder) loratadine 10 mg oral tablet (20 sources) Start: 06-29-2024 End: 09-27-2024 take 1 tablet by mouth once daily loratadine (Claritin) 10 MG tablet Indications: Seasonal allergic rhinitis, unspecified trigger Take 1 tablet (10 mg) by mouth Daily 90 tablet 1 09/27/2024 Active End: 06-27-2024 take 1 tablet by mouth in the morning loratadine (Claritin) 10 MG tablet Take 10 mg by mouth in the morning. 06/27/2024 Discontinued (Reorder) metFORMIN hydrochloride 500 mg oral tablet (20 sources) Biguanide Start: 03-07-2024 End: 12-26-2024 take 1 tablet by mouth at mealtime metFORMIN (Glucophage) 500 MG tablet Indications: Type 2 diabetes mellitus without complication, without long-term current use of insulin Take 1 tablet (500 mg) by mouth in the morning. Take with meals. 90 tablet 1 09/27/2024 12/26/2024 Active omeprazole 20 mg delayed release oral capsule (20 sources) Proton Pump Inhibitor Start: 01-11-2024 End: 03-26-2025 take 1 capsule by mouth once daily omeprazole (PriLOSEC) [address] capsule Indications: Gastroesophageal reflux disease without esophagitis Take 1 capsule (20 mg) by mouth 1 (one) time each day at the same time 90 capsule 1 09/27/2024 03/26/2025 Active Completed/Discontinued Medications Medication Drug Class(es) Dates Sig (Normalized) Sig (Original) amLODIPine 5 mg oral tablet (20 sources) Dihydropyridine Calcium Channel Kamryn Start: 11-25-2023 End: 03-26-2025 take 1 tablet by mouth in the morning amLODIPine (Norvasc) 5 MG tablet Indications: Primary hypertension (CMS/HCC) Take 1 tablet (5 mg) by mouth in the morning. 90 tablet 1 05/30/2024 09/27/2024 Discontinued (Reorder) calcium carbonate 1500 mg oral tablet (20 sources) Start: 09-22-2024 End: 09-27-2024 take 1 tablet by mouth in the morning calcium carbonate 1500 (600 Ca) MG tablet Indications: Osteoarthritis of left knee, unspecified osteoarthritis type Take 1 tablet (1,500 mg) by mouth in the morning and 1 tablet (1,500 mg) in the evening. Take with meals. 180 Unspecified 09/22/2024 09/27/2024 Discontinued (Therapy completed) Start: 06-29-2024 take 1 tablet by cristino th in the morning calcium carbonate 1500 (600 [...] evening. Take with meals. 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 Take before meals. 90 tablet 1 04/26/2024 09/27/2024 Discontinued (Reorder) lisinopril 10 mg oral tablet (20 sources) Angiotensin Converting Enzyme Inhibitor Start: 11-03-2023 End: 03-26-2025 take 1 tablet by mouth once daily lisinopril 10 MG tablet Indications: Primary hypertension (CMS/HCC) Take 1 tablet (10 mg) by mouth 1 (one) time each day at the same time 90 tablet 1 04/28/2024 09/27/2024 Discontinued (Reorder) triamcinolone acetonide 0.055 mg/actuat metered dose nasal spray (20 sources) Corticosteroid End: 09-27-2024 take 2 spray(s) nasal route in the morning triamcinolone (Nasacort) 55 MCG/ACT nasal inhaler Administer 2 sprays into each nostril in the morning. 09/27/2024 Discontinued (Therapy completed) Problems Active Problems Problem Classification Problem Date [...] sources) Hyperlipidemia, unspecified; Translations: [Hyperlipidemia] Onset: 12-18-2021 Resolved: 09-27-2024 07-23-2023 Chronic Esophageal disorders (20 sources) Gastroesophageal [...] knee joint] Onset: 07-23-2023 07-23-2023 Chronic Other screening for suspected conditions (not mental disorders or infectious disease) (7 sources) Encounter for screening mammogram for malignant neoplasm of breast; Translations: [Encounter for screening for osteoporosis] Onset: 06-25-2023 09-27-2024 Episodic Other skin disorders (2 sources) Inflamed seborrheic keratosis; Translations: [Inflamed seborrheic keratosis] 03-16-2024 Episodic Other upper respiratory disease (3 sources) Seasonal allergic rhinitis; Translations: [Other seasonal allergic rhinitis] 06-29-2024 Chronic Spondylosis; intervertebral disc disorders; other back problems (20 sources) Chronic back pain ; Translations: [Dorsalgia, unspecified] 03-07-2024 Episodic Thyroid disorders (20 sources) Hypothyroidism, unspecified; Translations: [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] Onset: 12-18-2021 07-23-2023 Chronic Unclassified (1 source) High BP Onset: 12-15-2023 Past or Other Problems Problem Classification Problem Date Documented Date Episodic/Chronic Mood disorders (2 sources) Mood disorders Onset: 09-27-2024 09-27-2024 Neoplasms of unspecified nature or uncertain behavior (20 sources) Neoplasm of uncertain behavior of skin; Translations: [Neoplasm of uncertain behavior of skin] Onset: 03-07-2024 03-07-2024 Episodic Other connective tissue disease (1 source) Personal history of other diseases of the musculoskeletal system and connective tissue; Translations: [Personal history of other diseases of the musculoskeletal system and connective tissue] Onset: 06-25-2023 Episodic Residual codes; unclassified (1 source) Asymptomatic menopausal state; Translations: [Asymptomatic menopausal state] Onset: 06-25-2023 Episodic Results Test Name Value Interpretation Reference Range Facility HbA1c (Bld) [Mass fraction]o n 09-27-2024 Interpretation and review of laboratory results Abnormal [facility] Global Active e Laboratory - Hematology and Cell countson 09-27-2024 HbA1c (Bld) [Mass fraction] 5.90 % [facility] TSH W/REFLEX T4on 2024 Interpretation and review of laboratory results Abnormal [facility] TSH Qn 5.273 m[IU]/L High [facility] Global Active e ALL CBC WITH AUTO DIFFon BASOPHILS ABSOLUTE AUTO 0 [facility] Basophils/100 WBC (Bld) 0.7 % 0.2 - 2.0 % [facility] Eosinophils/100 WBC (Bld) 0.7 % Low 0.9 - 7.0 % [facility] Erythrocyte distribution width (RBC) [Ratio] 13.5 % 11.0 - 15.0 % [facility] Hematocrit (Bld) [Volume fraction] 34 % Low 36.0 - 48.0 % [facility] Hemoglobin (Bld) [Mass/Vol] 11.5 g/dL Low 12.0 - 16.0 g/dL [facility] IMMATURE GRANULOCYTES ABS AUTO 0.01 [facility] Immature granulocytes/100 WBC (Bld) 0.2 % 0.0 - 0.5 % [facility] Interpretation and review of laboratory results Abnormal [facility] LYMPHOCYTES ABSOLUTE AUTO 1.2 [facility] Lymphocytes/100 WBC (Bld) 26.7 % 20.5 - 60.0 % [facility] MCH (RBC) [Entitic mass] 31.3 pg 26.7 - 34.0 pg [facility] MCHC (RBC) [Mass/Vol] 33.8 g/dL 29.9 - 35.2 g/dL [facility] MCV (RBC) [Entitic vol] 92.6 fL 81.0 - 99.0 fL [facility] MONOCYTES ABSOLUTE AUTO 0.3 [facility] Monocytes/100 WBC (Bld) 7.1 % 1.7 - 12.0 % [facility] NEUTROPHILS ABSOLUTE AUTO 2.8 [facility] Neutrophils/100 WBC (Bld) 64.6 % 43.0 - 75.0 % [facility] Platelet mean volume (Bld) [Entitic vol] 8.9 fL Low 9.5 - 13.5 fL [facility] EO # 0 [facility] PLT 271 [facility] TB RBC 3.67 Low [facility] WBC 4.3 [facility] ALL CBC WITH AUTO DIFFon BASOPHILS ABSOLUTE AUTO 0 [facility] Basophils/100 WBC (Bld) 0.7 % 0.2 - 2.0 % [facility] Eosinophils/100 WBC (Bld) 1 % 0.9 - 7.0 % [facility] Erythrocyte distribution width (RBC) [Ratio] 13.5 % 11.0 - 15.0 % [facility] Hematocrit (Bld) [Volume fraction] 33.8 % Low 36.0 - 48.0 % [facility] Hemoglobin (Bld) [Mass/Vol] 11.4 g/dL Low 12.0 - 16.0 g/dL [facility] IMMATURE GRANULOCYTES ABS AUTO 0.01 [facility] Immature granulocytes/100 WBC (Bld) 0.2 % 0.0 - 0.5 % [facility] Interpretation and review of laboratory results Abnormal [facility] LYMPHOCYTES ABSOLUTE AUTO 0.9 Low [facility] Lymphocytes/100 WBC (Bld) 22.4 % 20.5 - 60.0 % [facility] MCH (RBC) [Entitic mass] 31.3 pg 26.7 - 34.0 pg [facility] MCHC (RBC) [Mass/Vol] 33.7 g/dL 29.9 - 35.2 g/dL [facility] MCV (RBC) [Entitic vol] 92.9 fL 81.0 - 99.0 fL [facility] MONOCYTES ABSOLUTE AUTO 0.4 [facility] Monocytes/100 WBC (Bld) 8.6 % 1.7 - 12.0 % [facility] NEUTROPHILS ABSOLUTE AUTO 2.8 [facility] Neutrophils/100 WBC (Bld) 67.1 % 43.0 - 75.0 % [facility] Platelet mean volume (Bld) [Entitic vol] 9.2 fL Low 9.5 - 13.5 fL [facility] TBH EO # 0 [facility] [...] Ferrer MD on 06/25/2023 1:23 PM Normal [facility] MAMM SCREENING BILATERAL W C pricing actuary 06-25-2023 MAMM SCREENING BILATERAL W CAD MAMM [...] PM 1 b MAMM 1 YR Normal [facility] TRANSFERRINon 03-27-2022 Transferrin [Mass/Vol] 254 mg/dL Normal 192-364 [facility] Comment on above: Performed By: #### T CAMILASFR #### [facility] Laboratory [address] [place] [address] Dr. Esperanza Sheets CBC AUTO DIFFon 03-25-2022 BASO # 0.0 103/ul Normal 0.0-0.1 [facility] Comment on above: Performed By: #### C BC #### [facility] Laboratory [address] [place] [address] Dr. Esperanza Sheets Basophils/100 WBC (Bld) 0.8 % Normal 0.2-2.0 [facility] Comment on above: Performed By: #### C BC #### [facility] [address] [place] [address] Dr. Esperanza Sheets EO # 0.1 103/ul Normal 0.0-0.7 [facility] Comment on above: Performed By: #### C BC #### [facility] [address] [place] [address] Dr. Esperanza Sheets Eosinophils/100 WBC (Bld) 1.2 % Normal 0.9-7.0 [facility] Comment on above: Performed By: #### C BC #### [facility] [address] [place] [address] Dr. Esperanza Sheets Erythrocyte distribution width (RBC) [Ratio] 14.4 % Normal 11.0-15.0 [facility] Comment on above: Performed By: #### C BC #### [facility] [address] [place] [address] Dr. Esperanza Sheets Hematocrit (Bld) [Volume fraction] 33.5 % Critically low 36.0-48.0 [facility] Comment on above: Performed By: #### C BC #### [facility] [address] [place] [address] Dr. Esperanza Sheets Hemoglobin (Bld) [Mass/Vol] 10.7 g/dL Critically low 12.0-16.0 [facility] Comment on above: Performed By: #### C BC #### [facility] [address] [place] [address] Dr. Esperanza Sheets IG # 0.02 10e3/ul Normal 0.00-0.03 [facility] Comment on above: Performed By: #### C BC #### [facility] [address] [place] [address] Dr. Esperanza Sheets IG % 0.4 % Normal 0.0-0.5 [facility] Comment on above: Performed By: #### C BC #### [facility] [address] [place] [address] Dr. Esperanza Sheets LYMPH # 1.3 103/ul Normal 1.2-3.8 [facility] Comment on above: Performed By: #### C BC #### [facility] [address] [place] [address] Dr. Esperanza Sheets Lymphocytes/100 WBC (Bld) 24.2 % Normal 20.5-60.0 [facility] Comment on above: Performed By: #### C BC #### [facility] [address] [place] [address] Dr. Esperanza Sheets MANUAL DIFF REQ NO Normal [facility] Comment on above: Performed By: #### C BC #### [facility] [address] [place] [address] Dr. Esperanza Sheets MCH (RBC) [Entitic mass] 30.3 pg Normal 26.7-34.0 [facility] Comment on above: Performed By: #### C BC #### [facility] [address] [place] [address] Dr. Esperanza Sheets MCHC (RBC) [Mass/Vol] 31.9 g/dL Normal 29.9-35.2 [facility] Comment on above: Performed By: #### C BC #### [facility] [address] [place] [address] Dr. Esperanza Sheets MCV (RBC) [Entitic vol] 94.9 fL Normal 81.0-99.0 [facility] Comment on above: Performed By: #### C BC #### [facility] [address] [place] [address] Dr. Esperanza Sheets MONO # 0.3 103/ul Normal 0.3-0.8 [facility] Comment on above: Performed By: #### C BC #### [facility] [address] [address] [address] Esperanza Sheets Monocytes/100 WBC (Bld) 6.5 % Normal 1.7-12.0 [facility] Comment on above: Performed By: #### C BC #### [facility] [address] [place] [address] Dr. Esperanza Sheets NEUT # 3.5 103/ul Normal 1.4-6.5 [facility] Comment on above: Performed By: #### C BC #### [facility] [address] [place] [address] Dr. Esperanza Sheets Neutrophils/100 WBC (Bld) 66.9 % Normal 43.0-75.0 [facility] Comment on above: Performed By: #### C BC #### [facility] [address] [place] [address] Dr. Esperanza Sheets Platelet mean volume (Bld) [Entitic vol] 9.8 fL Normal 9.5-13.5 [facility] Comment on above: Performed By: #### C BC #### [facility] [address] [place] [address] Dr. Esperanza Sheets PLT 265 103/ul Normal 150-450 [facility] Comment on above: Performed By: #### C BC #### [facility] [address] [place] [address] Dr. Esperanza Sheets RBC 3.53 106/ul Critically low 4.20-5.40 [facility] Comment on above: Performed By: #### C BC #### [facility] [address] [place] [address] Dr. Esperanza Sheets WBC 5.2 103/ul Normal 4.0-11.0 [facility] Comment on above: Performed By: #### C BC #### [facility] [address] [place] [address] Dr. Esperanza Sheets FERRITINon 03-25-2022 Ferritin [Mass/Vol] 63.0 ng/mL Normal 8.0-252.0 [facility] Comment on above: Performed By: #### F ETIBC, FERR #### [facility] [address] [place] [address] Dr. Esperanza Sheets IRON AND TIBCon 03-25-2022 % SATURATION 13.7 % Normal [facility] Comment on above: Performed By: #### F ETIBC, FERR #### [facility] [address] [place] [address] Dr. Esperanza Sheets Iron [Mass/Vol] 39.0 ug/dL Critically low 50.0-170.0 [facility] Comment on above: Performed By: #### F ETIBC, FERR #### [facility] [address] [place] [address] Dr. Esperanza Sheets TIBC DIRECT 285.0 ug/dL Normal 250.0-450.0 [facility] Comment on above: Performed By: #### F ETIBC, FERR #### [facility] [address] [place] [address] Dr. Esperanza Sheets ECHOCARDIO M/2D COMPLETEon 0 12-27-2021 ECHOCARDIO M/2D COMPLETE Patient: JUMANA LEAL Exam Date: 12/27/2021 : 1940 Gender:F Ordering : SHAIKH Jesus LUIS . Admission #: [id number] Family : Order #: [id number] CLICK HERE TO VIEW EXAM ECHOCARDIOGRAM REPORT [...] Tejada M.D. on 12/27/2021 at 18:40 Normal [facility] XR femur BIon 12-18-2021 XR femur BI [facility] [employer] [address] [place] [address] XRay Report Signed Patient: Jumana Leal MR#: [id number] : 1940 Acct:[id number] Age/Sex: 81 / F ADM Date: 12/18/21 Loc: ICXD Room: Type: [facility] Attending Dr: Emiliano Hui PA-C Copies to: Emiliano Hui PA-C Ordering Provider: Emiliano Hui PA-C Date of Service: 12/18/21 XR/XR tibia/fibula BI: TKA ([id number]) XR/XR femur BI: TKA LEFT KNEE Bilateral [...] Yusuf Jr., M.D.12/18/2021 3:28 PM Dictation Location: [place] [address] Transcribed By: [facility] 12/18/211527 Dictated By: Ivan Yusuf Jr, MD 12/18/211521 Signed By: 12/18/211527 [facility] CBC AUTO DIFFon 12-16-2021 BASO # 0.0 103/ul Normal 0.0-0.1 [facility] Comment on above: Performed By: #### C BC #### [facility] [address] [place] [address] Dr. Esperanza Sheets Basophils/100 WBC (Bld) 0.6 % Normal 0.2-2.0 [facility] Comment on above: Performed By: #### C BC #### [facility] [address] [address] [address] Esperanza Sheets EO # 0.1 103/ul Normal 0.0-0.7 [facility] Comment on above: Performed By: #### C BC #### [facility] [address] [address] [address] Esperanza Shetes Eosinophils/100 WBC (Bld) 1.5 % Normal 0.9-7.0 [facility] Comment on above: Performed By: #### C BC #### [facility] [address] [address] [address] Esperanza Sheets Erythrocyte distribution width (RBC) [Ratio] 13.9 % Normal 11.0-15.0 [facility] Comment on above: Performed By: #### C BC #### [facility] [address] [address] [address] Esperanza Sheets Hematocrit (Bld) [Volume fraction] 34.8 % Critically low 36.0-48.0 [facility] Comment on above: Performed By: #### C BC #### [facility] [address] [place] [address] Dr. Esperanza Sheets Hemoglobin (Bld) [Mass/Vol] 11.4 g/dL Critically low 12.0-16.0 [facility] Comment on above: Performed By: #### C BC #### [facility] [address] [place] [address] Dr. Esperanza Sheets IG # 0.02 10e3/ul Normal 0.00-0.03 [facility] Comment on above: Performed By: #### C BC #### [facility] [address] [place] [address] Dr. Esperanza Sheets IG % 0.4 % Normal 0.0-0.5 [facility] Comment on above: Performed By: #### C BC #### [facility] [address] [place] [address] Dr. Esperanza Sheets LYMPH # 2.0 103/ul Normal 1.2-3.8 [facility] Comment on above: Performed By: #### C BC #### [facility] [address] [place] [address] Dr. Esperanza Sheets Lymphocytes/100 WBC (Bld) 37.6 % Normal 20.5-60.0 [facility] Comment on above: Performed By: #### C BC #### [facility] [address] [place] [address] Dr. Esperanza Sheets MANUAL DIFF REQ NO Normal [facility] Comment on above: Performed By: #### C BC #### [facility] [address] [place] [address] Dr. Esperanza Sheets MCH (RBC) [Entitic mass] 31.3 pg Normal 26.7-34.0 [facility] Comment on above: Performed By: #### C BC #### [facility] [address] [place] [address] Dr. Esperanza Sheets MCHC (RBC) [Mass/Vol] 32.8 g/dL Normal 29.9-35.2 [facility] Comment on above: Performed By: #### C BC #### [facility] [address] [place] [address] Dr. Esperanza Sheets MCV (RBC) [Entitic vol] 95.6 fL Normal 81.0-99.0 [facility] Comment on above: Performed By: #### C BC #### [facility] [address] [place] [address] Dr. Esperanza Sheets MONO # 0.3 103/ul Normal 0.3-0.8 [facility] Comment on above: Performed By: #### C BC #### [facility] [address] [address] [address] Esperanza Sheets Monocytes/100 WBC (Bld) 6.6 % Normal 1.7-12.0 [facility] Comment on above: Performed By: #### C BC #### [facility] [address] [place] [address] Dr. Esperanza Sheets NEUT # 2.8 103/ul Normal 1.4-6.5 [facility] Comment on above: Performed By: #### C BC #### [facility] [address] [place] [address] Dr. Esperanza Sheets Neutrophils/100 WBC (Bld) 53.3 % Normal 43.0-75.0 [facility] Comment on above: Performed By: #### C BC #### [facility] [address] [place] [address] Dr. Esperanza Sheets Platelet mean volume (Bld) [Entitic vol] 9.8 fL Normal 9.5-13.5 [facility] Comment on above: Performed By: #### C BC #### [facility] [address] [place] [address] Dr. Esperanza Sheets PLT 274 103/ul Normal 150-450 [facility] Comment on above: Performed By: #### C BC #### [facility] [address] [place] [address] Dr. Esperanza Sheets RBC 3.64 106/ul Critically low 4.20-5.40 [facility] Comment on above: Performed By: #### C BC #### [facility] [address] [place] [address] Dr. Esperanza Sheets WBC 5.2 103/ul Normal 4.0-11.0 [facility] Comment on above: Performed By: #### C BC #### [facility] [address] [address] [address] Esperanza Sheets GLYCOHEMOGLOBIN A1Con 2021 ADA RECOMMENDATION SEE BELOW Normal [facility] Comment on above: Result Comment: ADA RECOMMENDED LIMIT 4.0 - 6.0 ADA THERAPEUTIC TARGET < 7.0 ACTION SUGGESTED > 7.0 Performed By: #### A 1C #### [facility] [address] [place] [address] Dr. Esperanza Sheets Glucose [Mass/Vol] 128 mg/dL Normal [facility] Comment on above: Performed By: #### A 1C #### [facility] [address] [place] [address] Dr. Esperanza Sheets HbA1c (Bld) [Mass fraction] 6.1 % Normal 4.5-6.2 [facility] Comment on above: Performed By: #### A 1C #### [facility] [address] [place] [address] Dr. Esperanza Sheets LIPID PROFILEon 12-16-2021 CHOL-HDL RATIO NORM SEE BELOW Normal [facility] Comment on above: Result Comment: 3.3 - 4.4 LOW RISK 4.4 - 7.1 AVERAGE RISK 7.1 - 11.0 MODERATE RISK >11.0 HIGH RISK Performed By: #### L IPID, CMP, TSH #### [facility] [address] [place] [address] Dr. Esperanza Sheets Cholesterol [Mass/Vol] 159 mg/dL Normal <=200 [facility] Comment on above: Performed By: #### L IPID, CMP, TSH #### [facility] [address] [address] [address] Esperanza Sheets Cholesterol in HDL [Mass/Vol] 91 mg/dL Critically high 40-60 [facility] Comment on above: Performed By: #### L IPID, CMP, TSH #### [facility] [address] [address] [address] Esperanza Sheets Cholesterol in LDL [Mass/Vol] 41.8 mg/dL Normal [facility] Comment on above: Performed By: #### L IPID, CMP, TSH #### [facility] [address] [address] [address] Esperanza Sheets Cholesterol.total/Cho lesterol in HDL [Mass ratio] 1.7 {ratio} Normal [facility] Comment on above: Performed By: #### L IPID, CMP, TSH #### [facility] [address] [address] [address] Esperanza Sheets HDL NORMAL > or = 60 mg/dl - LOW CARDIOVASCULAR RISK <40 mg/dl - HIGH CARDIOVASCULAR RISK Normal [facility] Comment on above: Performed By: #### L IPID, CMP, TSH #### [facility] [address] [address] [address] Esperanza Sheets LDL CALC NORMAL SEE BELOW Normal [facility] Comment on above: Result Comment: <100 mg/dl OPTIMAL 100 - 129 mg/dl NEAR OR ABOVE OPTIMAL 130 - 159 mg/dl BORDERLINE HIGH 160 - 189 mg/dl HIGH >190 mg/dl VERY HIGH Performed By: #### L IPID, CMP, TSH #### [facility] [address] [address] [address] Esperanza Sheets Triglyceride [Mass/Vol] 131 mg/dL Normal <=150 [facility] Comment on above: Performed By: #### L IPID, CMP, TSH #### [facility] [address] [address] [address] Esperanza Sheets VLDL CALC 26.2 mg/dL Normal [facility] Comment on above: Performed By: #### L IPID, CMP, TSH #### [facility] [address] [address] [address] Esperanza Sheets PROF 14(COMP METB)on 022 Albumin [Mass/Vol] 3.8 g/dL Normal 3.4-5.0 [facility] Comment on above: Performed By: #### L IPID, CMP, TSH #### [facility] [address] [address] [address] Esperanza Sheets Albumin/Globulin [Mass ratio] 1.0 {ratio} Normal [facility] Comment on above: Performed By: #### L IPID, CMP, TSH #### [facility] [address] [address] [address] Esperanza Sheets ALP [Catalytic activity/Vol] 56 U/L Normal 46-116 [facility] Comment on above: Performed By: #### L IPID, CMP, TSH #### [facility] [address] [address] [address] Esperanza Sheets ALT [Catalytic activity/Vol] 39 U/L Normal 14-59 [facility] Comment on above: Performed By: #### L IPID, CMP, TSH #### [facility] [address] [address] [address] Esperanza Sheets Anion gap [Moles/Vol] 14.4 mmol/L Normal [facility] Comment on above: Performed By: #### L IPID, CMP, TSH #### [facility] [address] [place] [address] Dr. Esperanza Sheets AST [Catalytic activity/Vol] 28 U/L Normal 15-37 [facility] Comment on above: Performed By: #### L IPID, CMP, TSH #### [facility] [address] [place] [address] Dr. Esperanza Sheets Bilirubin [Mass/Vol] 0.4 mg/dL Normal 0.2-1.0 [facility] Comment on above: Performed By: #### L IPID, CMP, TSH #### [facility] [address] [place] [address] Dr. Esperanza Sheets Calcium [Mass/Vol] 9.1 mg/dL Normal 8.5-10.1 [facility] Comment on above: Performed By: #### L IPID, CMP, TSH #### [facility] [address] [place] [address] Dr. Esperanza Sheets Chloride [Moles/Vol] 100 mmol/L Normal 98-107 [facility] Comment on above: Performed By: #### L IPID, CMP, TSH #### [facility] [address] [place] [address] Dr. Esperanza Sheets CO2 [Moles/Vol] 25.6 mmol/L Normal 21.0-32.0 [facility] Comment on above: Performed By: #### L IPID, CMP, TSH #### [facility] [address] [address] [address] Esperanza Sheets Creatinine [Mass/Vol] 0.83 mg/dL Normal 0.55-1.02 [facility] Comment on above: Performed By: #### L IPID, CMP, TSH #### [facility] [address] [address] [address] Esperanza Sheets EGFR-AF PAKISTANI >60 Normal >=60 [facility] Comment on above: Performed By: #### L IPID, CMP, TSH #### [facility] [address] [address] [address] Esperanza Sheets EGFR-NON AF PAKISTANI >60 Normal >=60 [facility] Comment on above: Performed By: #### L IPID, CMP, TSH #### [facility] [address] [address] [address] Esperanza Sheets Globulin (S) [Mass/Vol] 3.7 g/dL Normal [facility] Comment on above: Performed By: #### L IPID, CMP, TSH #### [facility] [address] [address] [address] Esperanza Sheets Glucose [Mass/Vol] 148 mg/dL Critically high 74-106 [facility] Comment on above: Performed By: #### L IPID, CMP, TSH #### [facility] [address] [address] [address] Esperanza Sheets Potassium [Moles/Vol] 4.0 mmol/L Normal 3.5-5.1 [facility] Comment on above: Performed By: #### L IPID, CMP, TSH #### [facility] [address] [address] [address] Esperanza Sheets Protein [Mass/Vol] 7.5 g/dL Normal 6.4-8.2 [facility] Comment on above: Performed By: #### L IPID, CMP, TSH #### [facility] [address] [address] [address] Esperanza Sheets Sodium [Moles/Vol] 136 mmol/L Normal 136-145 [facility] Comment on above: Performed By: #### L IPID, CMP, TSH #### [facility] [address] [address] [address] Esperanza Sheets Urea nitrogen [Mass/Vol] 11.0 mg/dL Normal 7.0-18.0 [facility] Comment on above: Performed By: #### L IPID, CMP, TSH #### [facility] [address] [address] [address] Esperanza Sheets Urea nitrogen/Creatinine [Mass ratio] 13.3 mg/mg Normal [facility] Comment on above: Performed By: #### L IPID, CMP, TSH #### [facility] [address] [address] [address] Esperanza Sheets TSHon 12-16-2021 TSH 2.363 uIU/mL Normal 0.358-3.740 [facility] Comment on above: Performed By: #### L IPID, CMP, TSH #### [facility] [address] [address] [address] Esperanza Sheets Vital Signs Date Time Vital Sign Value Performing Clinician Yesika chin 09-27-2024 13:15-0400 Body mass index (BMI) [Ratio] 25.93 kg/m2 Gabrielle Landa CERTIFIED PHARMACY TECHNICIAN Work Phone: [facility] 09-27-2024 13:15-0400 Body temperature 97.81 [degF] Gabrielle Landa CERTIFIED PHARMACY TECHNICIAN Work Phone: [facility] 09-27-2024 13:15-0400 Body weight 57.24 kg Gabrielle Landa CERTIFIED PHARMACY TECHNICIAN Work Phone: [facility] 09-27-2024 13:15-0400 Diastolic blood pressure 80 mm[Hg] Gabrielle Landa CERTIFIED PHARMACY TECHNICIAN Work Phone: [facility] 09-27-2024 13:15-0400 Heart rate 71 /min Gabrielle Landa CERTIFIED PHARMACY TECHNICIAN Work Phone: [facility] 09-27-2024 13:15-0400 Respiratory rate 18 /min Gabrielle Landa CERTIFIED PHARMACY TECHNICIAN Work Phone: [facility] 09-27-2024 13:15-0400 SaO2% (BldA) [Mass fraction] 98 % Gabrielle Landa CERTIFIED PHARMACY TECHNICIAN Work Phone: [facility] 09-27-2024 13:15-0400 Systolic blood pressure 142 mm[Hg] Gabrielle Landa CERTIFIED PHARMACY TECHNICIAN Work Phone: [facility] 04-28-2024 13:46-0400 Body height 148.6 cm Marybeth Walsh CERTIFIED PHARMACY TECHNICIAN Work Phone: [facility] 04-28-2024 13:46-0400 Body mass index (BMI) [Ratio] 28.17 kg/m2 Marybeth Walsh CERTIFIED PHARMACY TECHNICIAN Work Phone: [facility] 04-28-2024 13:46-0400 Body temperature 98.1 [degF] Marybeth Walsh CERTIFIED PHARMACY TECHNICIAN Work Phone: [facility] 04-28-2024 13:46-0400 Body weight 62.19 kg Marybeth Walsh CERTIFIED PHARMACY TECHNICIAN Work Phone: [facility] 04-28-2024 13:46-0400 Diastolic blood pressure 74 mm[Hg] Marybeth Walsh CERTIFIED PHARMACY TECHNICIAN Work Phone: [facility] 04-28-2024 13:46-0400 Heart rate 73 /min Marybeth Walsh CERTIFIED PHARMACY TECHNICIAN Work Phone: [facility] 04-28-2024 13:46-0400 Respiratory rate 16 /min Marybeth Walsh CERTIFIED PHARMACY TECHNICIAN Work Phone: [facility] 04-28-2024 13:46-0400 SaO2% (BldA) [Mass fraction] 98 % Marybeth Walsh CERTIFIED PHARMACY TECHNICIAN Work Phone: [place] [phone] 13:46-0400 Systolic blood pressure 122 mm[Hg] Marybeth Walsh CERTIFIED PHARMACY TECHNICIAN Work Phone: [facility] 03-07-2024 15:44-0400 Body height 148.6 cm Marybeth Walsh CERTIFIED PHARMACY TECHNICIAN Work Phone: [facility] 03-07-2024 15:44-0400 Body mass index (BMI) [Ratio] 25.89 kg/m2 Marybeth Walsh CERTIFIED PHARMACY TECHNICIAN Work Phone: [facility] 03-07-2024 15:44-0400 Body temperature 96.91 [degF] Marybeth Walsh CERTIFIED PHARMACY TECHNICIAN Work Phone: [facility] 03-07-2024 15:44-0400 Body weight 57.15 kg Marybeth Walsh CERTIFIED PHARMACY TECHNICIAN Work Phone: [facility] 03-07-2024 15:44-0400 Diastolic blood pressure 74 mm[Hg] Marybeth Walsh CERTIFIED PHARMACY TECHNICIAN Work Phone: [facility] 03-07-2024 15:44-0400 Heart rate 82 /min Marybeth Walsh CERTIFIED PHARMACY TECHNICIAN Work Phone: [facility] Comment on above: 98% O2 03-07-2024 15:44-0400 Systolic blood pressure 124 mm[Hg] Marybeth Walsh CERTIFIED PHARMACY TECHNICIAN Work Phone: [facility] Healthcare Encounters Encounter Date Encounter Type Care Provider Facility Start: 11-29-2024 End: 11-29-2024 ambulatory GABRIELLE SYEDA Not Available Start: 09-27-2024 End: 09-27-2024 Bamboo flowsheet Gabrielle Syeda CERTIFIED PHARMACY TECHNICIAN Work Phone: [facility] Start: 09-27-2024 End: 09-27-2024 Bamboo flowsheet Gabrielle Syeda CERTIFIED PHARMACY TECHNICIAN Work Phone: [facility] Start: 09-27-2024 End: 09-27-2024 ambulatory GABRIELLE BRIGIDAHOLZ Not Available Start: 09-27-2024 End: 09-27-2024 Patient encounter procedure Gabrielle Gradybrittany CERTIFIED PHARMACY TECHNICIAN Work Phone: [facility] Comment on above: Encounter for subseq uent annual wellness visit (AWV) in Medicare patient (Primary Dx); Type 2 diabetes mellitus without complications; Primary hypertension (CMS/HCC); Gastroesophageal reflux disease without esophagitis; Osteopenia of multiple sites; 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); Mixed hyperlipidemia (CMS/[facility]); Encounter for screening mammogram for malignant neoplasm of breast; Seasonal allergic rhinitis, unspecified trigger; Type 2 diabetes mellitus without complication, without long-term current use of insulin Start: 2024 End: 2024 Clinisync Result Encounter Marybeth Walsh CERTIFIED PHARMACY TECHNICIAN Other Phone: [facility] External Department Unsolicited Start: 2024 End: 2024 Clinisync Result Encounter Marybeth Walsh CERTIFIED PHARMACY TECHNICIAN Other Phone: [facility] External Department Unsolicited Start: 06-30-2024 End: 07-04-2024 [facility] Comment on above: Osteopenia of multip le sites (Primary Dx) Start: 06-27-2024 End: 06-29-2024 Refill Marybeth Walsh CERTIFIED PHARMACY TECHNICIAN Work Phone: [facility] Comment on above: Osteoarthritis of le ft knee, unspecified osteoarthritis type (Primary Dx); Seasonal allergic rhinitis, unspecified trigger Start: 05-30-2024 End: 05-30-2024 Refill Lavonne Smith MA [facility] Comment on above: Primary hypertension (CMS/HCC) Start: 05-18-2024 End: 05-18-2024 Orders Only Marybeth Walsh CERTIFIED PHARMACY TECHNICIAN Work Phone: [facility] Comment on above: Type 2 diabetes baltazar itus without complication, without long- term current use of insulin (CMS/HCC) Start: 05-16-2024 End: 05-18-2024 Refill Mira Wong MA [facility] Comment on above: Type 2 diabetes baltazar itus without complication, without long- term current use of insulin (CMS/HCC) (Primary Dx) Start: 04-28-2024 End: 04-28-2024 Clinisync Result Encounter Marybeth Kupatrick CERTIFIED PHARMACY TECHNICIAN Work Phone: [facility] External Department Unsolicited Start: 04-28-2024 End: 04-28-2024 Clinisync Result Encounter Marybeth Walsh CERTIFIED PHARMACY TECHNICIAN Work Phone: [facility] External Department Unsolicited Start: 04-28-2024 End: 04-28-2024 Office outpatient visit 15 minutes Marybeth Vosstrick CERTIFIED PHARMACY TECHNICIAN Work Phone: [facility] Comment on above: Need for immunizatio n against influenza (Primary Dx); 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); Primary hypertension (CMS/HCC); Type 2 diabetes mellitus without complication, without long-term current use of insulin (CMS/HCC) Start: 04-28-2024 End: 04-28-2024 ambulatory MARYBETH WALSH Not Available Start: 04-27-2024 End: 04-27-2024 Clinisync Result Encounter Marybeth Walsh CERTIFIED PHARMACY TECHNICIAN Work Phone: [facility] External Department Unsolicited Start: 04-27-2024 End: 04-27-2024 Clinisync Result Encounter Marybeth Walsh CERTIFIED PHARMACY TECHNICIAN Work Phone: [facility] External Department Unsolicited Start: 04-27-2024 End: 04-27-2024 Orders Only Marybeth Walsh CERTIFIED PHARMACY TECHNICIAN Work Phone: [facility] Comment on above: Anemia, unspecified type (Primary Dx) Start: 04-26-2024 End: 04-26-2024 Refill Marybeth Walsh CERTIFIED PHARMACY TECHNICIAN Work Phone: [facility] Comment on [...] Start: 04-01-2024 End: 04-01-2024 Bamboo flowsheet Epi Huber [employer] [facility] Start: 04-01-2024 End: 04-01-2024 Bamboo flowsheet Pei Huber TABLE WORK[employer] [facility] Start: 04-01-2024 End: 04-01-2024 ambulatory Epi Huber [employer] [facility] Comment on above: Chronic 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 (Primary Dx) Start: 03-29-2024 End: 03-29-2024 Bamboo flowsheet Epi Huber [employer] WORK[employer] [facility] Start: 03-29-2024 End: 03-29-2024 Bamboo flowsheet Epi Huber TABLE WORK[employer] [facility] Start: 03-29-2024 End: 03-29-2024 ambulatory Epi Huber [employer] [facility] Comment on above: Chronic 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 (Primary Dx) Start: 03-25-2024 End: 03-25-2024 Bamboo flowsheet Epi Huber TABLE WORK[employer] [facility] Start: 03-25-2024 End: 03-25-2024 Bamboo flowsheet Epi Huber [employer] WORK[employer] [facility] Start: 03-25-2024 End: 03-25-2024 ambulatory Epi Huber [employer] [facility] Comment on above: Chronic 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 (Primary Dx) Start: 03-23-2024 End: 03-23-2024 Bamboo flowsheet Epi Huber TABLE WORK[employer] [facility] Start: 03-23-2024 End: 03-23-2024 Bamboo flowsheet Epi Huber TABLE WORK[employer] [facility] Start: 03-23-2024 End: 03-23-2024 ambulatory Epi Huber TABLE [employer] [facility] Comment on above: Chronic 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 (Primary Dx) Start: 03-17-2024 End: 03-17-2024 ambulatory Vy De Dios PT [facility] [...] seborrheic keratosis Start: 03-16-2024 End: 03-16-2024 ambulatory BRANDEE NORTHEIM Not Available Start: 03-07-2024 End: 03-07-2024 Office outpatient visit 25 minutes Marybeth Walsh CERTIFIED PHARMACY TECHNICIAN Work Phone: [facility] Comment on above: Primary hypertension (CMS/HCC) (Primary Dx); Type 2 diabetes mellitus without complication, without long-term current use of insulin (CMS/HCC); Gastroesophageal reflux disease without esophagitis; Chronic 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; Neoplasm of uncertain behavior of skin Start: 03-07-2024 End: 03-07-2024 ambulatory MARYBETH WALSH Not Available Start: 03-07-2024 End: 03-07-2024 Bamboo flowsheet Marybeth Walsh CERTIFIED PHARMACY TECHNICIAN Work Phone: [facility] Start: 03-07-2024 End: 03-07-2024 Bamboo flowsheet Marybeth Walsh CERTIFIED PHARMACY TECHNICIAN Work Phone: [facility] Start: 12-15-2023 End: 12-15-2023 Emergency department patient visit SHAIKH JANELLE [facility] Start: 06-25-2023 End: 06-25-2023 [facility] Start: 03-25-2022 End: 03-26-2022 ambulatory SHAIKH Yohannes LUIS Facility:[facility]1 Start: 01-02-2022 Encounter for preprocedural cardiovascular examination SHAIKH Yohannes LUIS [facility] Start: 12-27-2021 End: 12-28-2021 ambulatory SHAIKH Yohannes LUIS Facility:[facility] Start: 12-27-2021 End: 12-28-2021 Encounter for preprocedural cardiovascular examination SHAIKH Yohannes [facility] Facility: Start: 12-16-2021 End: 12-17-2021 ambulatory GARCIA Yohannes LUIS Facility: Procedures Date Procedure Procedure Detail Performing Clinician Start: 09-27-2024 Hemoglobin glycosyla carlos a1c Gabrielle Landa CERTIFIED PHARMACY TECHNICIAN Work Phone: Start: 2024 TSH W/REFLEX T4 Brittan y Walsh CERTIFIED PHARMACY TECHNICIAN Other Phone: Start: 04-28-2024 ALL CBC WITH AUTO DIFF Marybeth Walsh CERTIFIED PHARMACY TECHNICIAN Work Phone: Start: 04-27-2024 ALL CBC WITH AUTO DIFF Marybeth Walsh CERTIFIED PHARMACY TECHNICIAN Work Phone: Start: 03-16-2024 CRYOTHERAPY SKIN LESION Brandee OTERO Work Phone: Plan of Treatment Date Care Activity Detail Author Start: 11-01-2025 Glaucoma screening Diabetes: R etinopathy Screening [facility] Healthcare Start: 09-27-2025 Medicare Annual Wellness (AWV) Medicare Annual Wellness (AWV) [facility] Start: 04-27-2025 Urine screening for protein Diabetes: Urine Protein Screening [facility] Start: 03-29-2025 Hemoglobin A1c measurement Diabetes: Hemoglobin A1C [facility] Start: 09-27-2024 End: 11-27-2025 MG Breast - bilateral Screening Bilateral screening mammogram Imaging Routine Encounter for screening mammogram for malignant neoplasm of breast Expected: 09/27/2024 (Approximate), Expires: 11/27/2025 [facility] Healthcare Work Phone: Comment on above: Expected: 09/27/2024 (Approximate), Expires: 11/27/2025 Start: 09-27-2024 End: 09-27-2024 Patient encounter procedure 09/27/2024 1:00 PM EDT Office Visit [facility] [address] [place] [address] Gabrielle Landa NP [address] [place] [phone] [facility] Start: 09-21-2024 End: 09-21-2024 Patient encounter procedure 09/21/2024 1:00 PM EDT Office Visit [facility] [address] [place] [phone] Marybeth Walsh, ABIODUN [address] [place] [address] [facility] Start: 07-22-2024 Urine screening for protein Diabetes: Urine Protein Screening [facility] Start: 04-28-2024 End: 04-28-2024 Patient encounter procedure 04/28/2024 2:00 PM EDT Office Visit [facility] [address] [place] [phone] Marybeth Walsh, CERTIFIED PHARMACY TECHNICIAN [address] [place] [address] [facility] Start: 04-28-2024 End: 04-28-2025 TSH W/REFLEX TO FT4 TSH W/REFLEX TO FT4 Lab Routine 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) Expected: 04/28/2024 (Approximate), Expires: 04/28/2025 [facility] Healthcare Work Phone: Comment on above: Expected: 04/28/2024 (Approximate), Expires: 04/28/2025 Start: 04-27-2024 End: 04-27-2025 CBC W Auto Differential panel - Blood CBC and differential Lab Routine Anemia, unspecified type Expected: 04/27/2024 (Approximate), Expires: 04/27/2025 [facility] Healthcare Work Phone: Comment on above: Expected: 04/27/2024 (Approximate), Expires: 04/27/2025 Start: 04-27-2024 End: 04-27-2025 Cobalamin (Vitamin B12) [Mass/volume] in Serum or Plasma Vitamin B12 Lab Routine Anemia, unspecified type Expected: 04/27/2024 (Approximate), Expires: 04/27/2025 [facility] Comment on above: Expected: 04/27/2024 (Approximate), Expires: 04/27/2025 Start: 04-27-2024 End: 04-27-2025 Ferritin [Mass/volume] in Serum or Plasma Ferritin Lab Routine Anemia, unspecified type Expected: 04/27/2024 (Approximate), Expires: 04/27/2025 [facility] Comment on above: Expected: 04/27/2024 (Approximate), Expires: 04/27/2025 Start: 04-27-2024 End: 04-27-2025 Iron + transferrin + TIBC Iron + transferrin + TIBC Lab Routine Anemia, unspecified type Expected: 04/27/2024 (Approximate), Expires: 04/27/2025 [facility] Comment on above: Expected: 04/27/2024 (Approximate), Expires: 04/27/2025 Start: 04-27-2024 End: 04-27-2025 Measurement of occult blood in single stool specimen Occult blood x 1, stool Lab Routine Anemia, unspecified type Expected: 04/27/2024 (Approximate), Expires: 04/27/2025 [facility] Comment on above: Expected: 04/27/2024 (Approximate), Expires: 04/27/2025 Start: 04-22-2024 Medicare Annual Wellness (AWV) Medicare Annual Wellness (AWV) [facility] Start: 04-15-2024 End: 04-15-2024 ambulatory 04/15/2024 12:30 PM EDT Treatment [facility] [address] [facility] [address] [place] [address] Vy De Dios, PT [facility] Start: 04-08-2024 End: 04-08-2024 ambulatory 04/08/2024 12:00 PM EDT Treatment [facility] [address] [facility] [address] [place] [address] Epi Felix, TABLE WORKER PACKAGER [facility] Start: 04-05-2024 End: 04-05-2024 ambulatory 04/05/2024 12:30 PM EDT Treatment [facility] [address] [facility] [address] [place] [address] Vy De Dios, PT [facility] [...] Evaluation [facility] [address] [facility] [address] [place] [address] Vy De Dios, PT [facility] Start: 03-16-2024 End: 03-16-2024 Patient encounter procedure [facility] Comment on above: Neoplasm of uncertai n behavior of skin Start: 03-07-2024 End: 03-07-2024 Patient encounter procedure 03/07/2024 3:30 PM EDT Office Visit [facility] [address] [place] [phone] Marybeth Walsh, CERTIFIED PHARMACY TECHNICIAN [address] [place] [id number] Arrived [facility] Comment on above: Arrived Start: 03-07-2024 End: 03-07-2025 CBC W Auto Differential panel - Blood CBC and differential Lab Routine Primary hypertension ([facility]/HCC) Type 2 diabetes mellitus without complication, without long-term current use of insulin ([facility]) Expected: 03/07/2024 (Approximate), Expires: 03/07/2025 [facility] Comment on above: Expected: 03/07/2024 (Approximate), Expires: 03/07/2025 Start: 03-07-2024 End: 03-07-2025 Comprehensive metabolic 2000 panel - Serum or Plasma Comprehensive metabolic panel Lab Routine Primary hypertension ([facility]/HCC) Type 2 diabetes mellitus without complication, without long-term current use of insulin ([facility]) Expected: 03/07/2024 (Approximate), Expires: 03/07/2025 [facility] Comment on above: Expected: 03/07/2024 (Approximate), Expires: 03/07/2025 Start: 03-07-2024 End: 03-07-2025 Hemoglobin A1c/Hemoglobin.total in Blood Hemoglobin A1c Lab Routine Type 2 diabetes mellitus without complication, without long-term current use of insulin ([facility]) Expected: 03/07/2024 (Approximate), Expires: 03/07/2025 [facility] Comment on above: Expected: 03/07/2024 (Approximate), Expires: 03/07/2025 Start: 02-28-2024 Influenza vaccination Influenza Vacc ine (#1) [facility] Start: 01-20-2024 Hemoglobin A1c measurement Diabetes: Hemoglobin A1C [facility] Start: 03-31-2020 Medicare Annual Wellness (AWV) Medicare Annual Wellness (AWV) [facility] Microalbumin/Creatin ine panel in random Urine Microalbumin / creatinine urine ratio Lab Routine Primary hypertension ([facility]/HCC) Type 2 diabetes mellitus without complication, without long-term current use of insulin ([facility]) Ordered: 03/07/2024 [facility] Work Phone: Comment on above: Ordered: 03/07/2024 Immunizations Immunization Date Immunization Notes Care Provider Fa cility 04-28-2024 influenza, seasonal, injectable, preservative free Marybeth Walsh CERTIFIED PHARMACY TECHNICIAN Work Phone: [facility] 04-22-2023 Influenza, High-dose Seasonal, Quadrivalent, Preservative Free Marybeth Walsh CERTIFIED PHARMACY TECHNICIAN Work Phone: [facility] 04-22-2023 influenza virus vacc ine, unspecified formulation Marybeth Walsh CERTIFIED PHARMACY TECHNICIAN Work Phone: [facility] 05-16-2021 Influenza, High-dose Seasonal, Quadrivalent, Preservative Free Marybeth Walsh CERTIFIED PHARMACY TECHNICIAN Work Phone: [facility] 06-14-2019 pneumococcal polysaccharide vaccine, 23 valent Gabrielle Aichholz CERTIFIED PHARMACY TECHNICIAN Work Phone: [facility] 05-17-2019 influenza, high dose seasonal, preservative-free Marybeth Walsh CERTIFIED PHARMACY TECHNICIAN Work Phone: [facility] 10-19-2018 tetanus toxoid, redu kar diphtheria toxoid, and acellular pertussis vaccine, adsorbed Gabrielle Aichholz CERTIFIED PHARMACY TECHNICIAN Work Phone: [facility] 06-14-2018 pneumococcal conjuga te vaccine, 13 valent Marybeth Walsh CERTIFIED PHARMACY TECHNICIAN Work Phone: [facility] 06-14-2018 Seasonal trivalent influenza vaccine, adjuvanted, preservative free Marybeth Walsh CERTIFIED PHARMACY TECHNICIAN Work Phone: [facility] 05-29-2016 influenza, injectabl e, quadrivalent, preservative free Marybeth Walsh CERTIFIED PHARMACY TECHNICIAN Work Phone: [facility] 05-29-2016 pneumococcal polysaccharide vaccine, 23 valent Gabrielle Aichholz CERTIFIED PHARMACY TECHNICIAN Work Phone: [facility] Payers Date Payer Category Payer Private Health Insurance [id number] 2007 Medicare [id number] 1959 Medicare [id number] 1959 Private Health Insurance CLI [id number] 1942 Unknown [id number] 2.16.84 [id number] 1942 Unknown [id number] 2.16.84 0.1.514442.3.579.2.593 1942 Unknown [id number] 2.16.84 0.1.613169.3.579.2.593 1942 Unknown [id number] 2.16.8 40.1.150328.3.579.2.1286 1942 Unknown [id number] 2.16.84 0.1.026952.3.579.2.1286 1942 Unknown [id number] 2.16.84 0.1.494309.3.579.2.1286 1942 Unknown [id number] 2.16.8 40.1.495688.3.579.2.1259 1942 Unknown [id number] 2.16.84 0.1.548827.3.579.2.1259 1942 Unknown [id number] 2.16.84 0.1.509017.3.579.2.1259 1942 Unknown [id number] 2.16.84 0.1.206668.3.579.2.1259 1942 Unknown [id number] 2.16.84 0.1.817298.3.579.2.1259 1942 Unknown [id number] 2.16.84 0.1.591502.3.579.2.1259 1942 Unknown [id number] 2.16.84 0.1.317559.3.579.2.1259 1942 Unknown [id number] 2.16.84 0.1.006974.3.579.2.1259 1942 Unknown [id number] 2.16.84 0.1.585468.3.579.2.1259 1942 Unknown [id number] 2.16.84 0.1.224385.3.579.2.1259 1942 Unknown [id number] 2.16.84 0.1.343011.3.579.2.1259 1942 Unknown [id number] 2.16.84 0.1.567830.3.579.2.1259 Social History Date Type Detail Facility Start: 10-26-2023 Tobacco smoking stat [facility] Never smoked tobacco [facility] Start: 10-26-2023 Tobacco use and exposure Smokeless tobacco non-user [facility] Start: 03-16-2024 End: 09-27-2024 Alcoholic beverage intake Lifetime non-drinker (finding) [facility] Start: 03-16-2024 End: 09-27-2024 History of Social function [facility] Start: 03-16-2024 End: 09-27-2024 Tobacco use panel [facility] Start: 1940 Sex assigned at Not on file [facility] NEGATED: Highlighted rowStart: NINF History of tobacco use Passive smoker [facility] Medical Equipment Procedure Code Equipment Code Equipment Origin al Text Equipment Identifier Dates [id number] Start: 05-18-2024 End: 05-16-2024 Clinical Notes 03-07-2024 to 09-27-2024 Gabrielle Landa NP - 09/27/2024 1:44 PM Aden Landa NP - 09/27/2024 1:00 PM Aden Landa NP - 09/27/2024 6:52 AM Aden Landa NP - 09/27/2024 6:51 AM EDTPatient Instructions Note Date & Type Note Facility 09-27-2024 History of Presen t illness Narrative Associated Problem(s): Type 2 diabetes mellitus without complications [...] and simple sugars. Meds; metformin , statin, wyatt A1c 5.9% 09/27/24 Images from the original note were not included. Jumana Leal is a 84 y.o. female presents with chief complaint of Medicare Annual Wellness Visit Initial HPI: Diet: variety Activity: walking when nice Mental Health Concerns:none, Falls in the last year: yes Still driving: yes Do you pay your bills: yes Any hearing problems: no Any Vision problems: glasses, Any Hospitalizations in the last year: no Specialist: eye doctor, HCPOA/Living Will: no Concerns: none Hypertension This is a chronic problem. The current episode started more than 1 year ago. The problem is unchanged. The problem is controlled. Pertinent negatives include no blurred vision, chest pain, headaches, palpitations, peripheral edema or shortness of breath. There are no associated agents to hypertension. Risk factors for coronary artery disease include diabetes mellitus. Past treatments include calcium channel blockers and WYATT inhibitors. The current treatment provides significant improvement. There are no compliance problems. Identifiable causes of hypertension include a thyroid problem. Thyroid Problem Presents for follow-up visit. Patient reports no anxiety, constipation, depressed mood, diarrhea, hair loss, heat intolerance, leg swelling, palpitations, tremors, visual change or weight gain. The symptoms have been stable. Diabetes She presents for her follow-up diabetic visit. She has type 2 diabetes mellitus. Her disease course has been stable. There are no hypoglycemic associated symptoms. Pertinent negatives for hypoglycemia include no dizziness, headaches, nervousness/anxiousness, seizures or tremors. Pertinent negatives for diabetes include no blurred vision, no chest pain, no foot paresthesias, no polydipsia, no polyphagia, no polyuria and no visual change. There are no hypoglycemic complications. Symptoms are stable. Pertinent negatives for diabetic complications include no heart disease, nephropathy or peripheral neuropathy. Risk factors for coronary artery disease include hypertension, dyslipidemia, diabetes mellitus and post-menopausal. Current diabetic treatment includes oral agent (monotherapy). An WYATT inhibitor/angiotensin II receptor kamryn is being taken. She does not see a home care liaison.Eye exam is current. SUBJECTIVE: MEDICATIONS: Current Outpatient Medications Medication Instructions [...] of Systems Constitutional: Negative for appetite change, chills, fever and weight gain. HENT: Negative for congestion, ear pain and sore throat. Eyes: Negative for blurred vision, pain, discharge, redness and visual disturbance. Respiratory: Negative for cough, shortness of breath and wheezing. Cardiovascular: Negative for chest pain, palpitations and leg swelling. Gastrointestinal: Negative for abdominal pain, blood in stool, constipation, diarrhea, nausea and vomiting. Genitourinary: Negative for difficulty urinating, dysuria and frequency. Musculoskeletal: Negative for arthralgias, back pain, joint swelling and myalgias. Skin: Negative for rash and wound. Neurological: Negative for dizziness, tremors, seizures, syncope and headaches. Psychiatric/Behavioral: Negative for behavioral problems, self-injury and suicidal ideas. The patient is not nervous/anxious. Hematological: Does not bruise/bleed easily. Endocrine: Negative for heat intolerance, polydipsia, polyphagia and polyuria. Allergic/Immunologic: Negative for environmental allergies and food allergies. PAST MEDICAL HISTORY Past Medical History: Diagnosis Date Allergic rhinitis, mild Anemia At moderate risk for fall Cholecystitis 2020 Cholelithiasis Chronic back pain Diabetes (CMS/HCC) Diabetes type 2, controlled (CMS/HCC) Edema, unspecified type Gastroesophageal reflux disease HLD (hyperlipidemia) (CMS/HCC) HTN (hypertension) (CMS/HCC) Hypothyroidism, adult (CMS/HCC) Knee pain, unspecified chronicity, unspecified laterality Left foot pain Osteoporosis (CMS/HCC) Overweight Plantar wart, left foot Restless leg Sinusitis Past Surgical History: Procedure Laterality Date BLADDER SUSPENSION BREAST BIOPSY Left CHOLECYSTECTOMY 06/2020 Laparoscopic HYSTERECTOMY family history includes Cancer in her father; Diabetes in her mother; Hypertension in her mother. OBJECTIVE: Visit Vitals BP 142/80 (BP Location: Left arm, Patient Position: Sitting, BP Cuff Size: Adult long) Pulse 71 Temp 97.8 F (Temporal) Resp 18 Wt 126 lb 3.2 oz SpO2 98% BMI 25.93 kg/m OB Status Hysterectomy Smoking Status Never BSA 1.54 m Physical Exam Vitals and nursing note reviewed. [...] Breath sounds: Normal breath sounds. Abdominal: General: Bowel sounds are normal. There is no distension. Palpations: Abdomen is soft. There is no mass. Tenderness: There is no abdominal tenderness. Musculoskeletal: General: Normal range of motion. Cervical back: Normal range of motion and neck supple. Skin: General: Skin is warm and dry. Capillary Refill: Capillary refill takes 2 to 3 seconds. Findings: No rash. Neurological: General: No focal deficit present. Mental Status: She is alert and oriented to person, place, and time. Psychiatric: Mood and Affect: Mood normal. Behavior: Behavior normal. Thought Content: Thought content normal. Judgment: Judgment normal. ASSESSMENT AND PLAN: Follow up in about 6 months (around 03/29/2025) for Recheck. Problem List Items Addressed This Visit Primary hypertension (CMS/HCC) Please check blood pressure daily and record DASH diet Limit caffeine Take medication as directed Contact office if chest pain, pressure, dizziness, shortness of breath, swelling legs Recommend slow position changes Current meds; amlodipine, lisinopril Relevant Medications amLODIPine (Norvasc) 5 MG tablet lisinopril 10 MG tablet Type 2 diabetes mellitus without complications Check [...] and simple sugars. Meds; metformin , statin, wyatt A1c 5.9% 09/27/24 Relevant Medications metFORMIN (Glucophage) 500 MG tablet Other Relevant Orders POCT glycosylated hemoglobin (Hb A1C) docked device (Completed) Gastroesophageal reflux disease without esophagitis Recommendations: freq small meals, nothing to eat or drink at least 2 hours prior to bed, limit caffeine, alcohol, as well as spicy foods Meds to limit or avoid if possible: NSAIDS Elevate HOB if possible Current meds: omeprazole Relevant Medications omeprazole (PriLOSEC) [address] capsule Osteopenia Current: vit d and calcium DEXA: 06/25/23, T score -1.3 Relevant Medications calcium 500 MG tablet cholecalciferol (Vitamin D-3) 50 MCG (1999) capsule 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) Current medication: levothyroxine Check labs yearly, and prn dose changes or changes in sxs Reviewed labs and will leave dose where it is Relevant Medications levothyroxine (Synthroid) 50 MCG tablet Mixed hyperlipidemia (CMS/HCC) On statin therapy Check labs yearly and prn dose changes Encounter for subsequent annual wellness visit (AWV) in Medicare patient - Primary Reviewed Ht/Wt/BMI Recommend eye exam yearly Recommend dental exams twice a year Balance work/leisure activities Exercises is recommended most days of the week (appropriate as chronic conditions allow) Follow up yearly and prn Encounter for screening mammogram for malignant neoplasm of breast Relevant Orders Bilateral screening mammogram Other Visit Diagnoses Seasonal allergic rhinitis, unspecified trigger Relevant Medications loratadine (Claritin) 10 MG tablet Associated Problem(s): Encounter for subsequent annual wellness visit (AWV) in Medicare patient Reviewed Ht/Wt/BMI Recommend eye exam yearly Recommend dental exams twice a year Balance work/leisure activities Exercises is recommended most days of the week (appropriate as chronic conditions allow) Follow up yearly and prn Associated Problem(s): Mixed hyperlipidemia (CMS/HCC) On statin therapy Check labs yearly and prn dose changes Associated Problem(s): 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) Current medication: levothyroxine Check labs yearly, and prn dose changes or changes in sxs Reviewed labs and will leave dose where it is Associated Problem(s): Osteopenia Current: vit d and calcium DEXA: 06/25/23, T score -1.3 Associated Problem(s): Gastroesophageal reflux disease without esophagitis Recommendations: freq small meals, nothing to eat or drink at least 2 hours prior to bed, limit caffeine, alcohol, as well as spicy foods Meds to limit or avoid if possible: NSAIDS Elevate HOB if possible Current meds: omeprazole Associated Problem(s): Primary hypertension (CMS/HCC) Please check blood pressure daily and record DASH diet Limit caffeine Take medication as directed Contact office if chest pain, pressure, dizziness, shortness of breath, swelling legs Recommend slow position changes Current meds; amlodipine, lisinopril documented in this encounter [facility] 09-27-2024 Instructions Gabrielle Landa NP - 09/27/2024 1:00 PM EDT Fax order to [facility] for your mammogram they should call you, if they dont in 2 weeks call here Health care power of leather piece inspector and living will: you dont have to see a clinical assessment manager, but if you fill it out, you can take it to a notary documented in this encounter [facility] 06-30-2024 Telephone encount er Note 04/28/2024 09/21/2024 [facility] 06-30-2024 Miscellaneous Notes Formattin g of this note might be different from the original. 04/28/2024 09/21/2024 documented in this encounter [facility] 05-17-2024 Telephone encount er Note Correct they would like her to have the kit I sent to you. And all supplies [facility] 05-17-2024 Miscellaneous Notes Formattin g of [...] to call pharmacy. documented in this encounter [facility] 05-16-2024 Telephone encount er Note Pts insurance would like her to have a Accu check meter, will need script for that as well as lancets and strips, I found the strips and pended them but can not find the meter or lancets, may have to call pharmacy. [facility] 05-02-2024 History of Presen t illness Narrative Associated Problem(s): Type 2 diabetes mellitus without complication, without long-term current use of insulin (CMS/[facility]) Has stopped taking Metformin on her own. [...] List Items Addressed This Visit Primary hypertension ([facility]) Currently taking amlodipine 5mg Lisinopril 10mg Does not Check BP at home; Denies orthostatic changes, dizziness, cough, shortness of breath, swelling in extremities. Continue current regimen. Relevant Medications lisinopril 10 MG tablet Type 2 diabetes mellitus without complication, without long-term current use of insulin ([facility]) Has stopped taking Metformin on her own. 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 documented in this encounter [facility] 04-15-2024 History of Presen t illness [...] things to stabilize herself. Precautions: Left TKA, [place] Subjective: Pt states she has been doing [...] heel for trial with ambulation. - addressed Assisted Goals: To be met in 10 weeks [...] met Discharge PT. documented in this encounter [facility] 04-05-2024 History of Presen t illness [...] things to stabilize herself. Precautions: Left TKA, [place] Subjective: Pt states she is doing well. [...] purchase right heel for trial with ambulation. Telephone Services Sales Representative Goals: To be met in 10 weeks [...] sign below. Date: documented in this encounter [facility] 03-16-2024 History of Presen t illness [...] (2) Right Occipital Scalp, Right Upper Back [place] and brown stuck on verrucous scaly papule [...] limited to risks of scarring, darker or detention attendant pigmentary changes, recurrence, incomplete removal and infection. 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 Denies injury or trauma Is firm to touch, vascular. Referral sent to Dermatology Associated Problem(s): Primary hypertension ([facility]/HCC) Currently taking amlodipine 5mg Lisinopril 10mg Does not Check BP at home; Denies orthostatic changes, dizziness, cough, shortness of breath, swelling in extremities. Continue current regimen. Associated Problem(s): Gastroesophageal reflux disease without esophagitis Taking Omeprazole 20mg States symptoms are well controlled. Continue current regimen. Associated Problem(s): Type 2 diabetes mellitus without complication, without long-term current use of insulin (CMS/[facility]) Most recent labs: hemoglobin A1C 5.9% Does [...] List Items Addressed This Visit Primary hypertension (CMS/HCC) - Primary Currently taking amlodipine 5mg Lisinopril 10mg Does not Check BP at home; Denies orthostatic changes, dizziness, cough, shortness of breath, swelling in extremities. Continue current regimen. Relevant Orders Microalbumin / creatinine urine ratio Comprehensive metabolic panel CBC and differential Type 2 diabetes mellitus without complication, without long-term current use of insulin ([facility]) Most recent labs: hemoglobin A1C 5.9% Does [...] referral to Dermatology documented in this encounter [facility] 03-07-2024 Instructions Marybeth Walsh NP - [...] will call you! 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- Primary documented in this encounter [facility] HealthcareEvaluation note* Diagnosis Primary hypertension (CMS/HCC)- Primary [...] without sciatica- Primary documented in this encounter [facility] HealthcareEvaluation note* Diagnosis Primary hypertension (CMS/HCC)- Primary [...] David's thyroiditis (CMS/HCC) documented in this encounter [facility] HealthcareEvaluation note* Diagnosis Primary hypertension (CMS/HCC)- Primary [...] unspecified type- Primary documented in this encounter [facility] HealthcareEvaluation note* Diagnosis Primary hypertension (CMS/HCC)- Primary [...] of insulin (CMS/HCC) documented in this encounter [facility] HealthcareEvaluation note* Diagnosis Primary hypertension (CMS/HCC)- Primary [...] insulin (CMS/HCC)- Primary documented in this encounter [facility] HealthcareEvaluation note* Diagnosis Primary hypertension (CMS/HCC)- Primary [...] of insulin (CMS/HCC) documented in this encounter [facility] HealthcareEvaluation note* Diagnosis Primary hypertension (CMS/HCC)- Primary [...] due to David's thyroiditis (CMS/HCC) Primary hypertension ([facility]/HCC) Unspecified essential hypertension Type 2 diabetes mellitus without complication, without long-term current use of insulin ([facility]) Osteoarthritis of left knee, unspecified osteoarthritis type- Primary Seasonal allergic rhinitis, unspecified trigger documented in this encounter [facility] HealthcareEvaluation note* Diagnosis Primary hypertension (CMS/HCC)- Primary Unspecified essential hypertension Type 2 diabetes mellitus without complication, without long-term current use of insulin (CMS/HCC) Other hyperlipidemia ([facility]/HCC) Osteopenia of multiple sites 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 Primary hypertension ([facility]/HCC) Unspecified essential hypertension Type 2 diabetes mellitus without complication, without long-term current use of insulin (CMS/HCC) Primary hypertension ([facility]/HCC)- Primary Unspecified essential hypertension Type 2 diabetes mellitus without complication, without long-term current use of insulin ([facility] [facility] Gastroesophageal reflux disease without esophagitis Esophageal reflux Chronic 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 Neoplasm of uncertain behavior of skin Need for immunization against influenza- Primary Need for prophylactic vaccination and inoculation against influenza 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) Primary hypertension ([facility]/HCC) Unspecified essential hypertension Type 2 diabetes mellitus without complication, without long-term current use of insulin ([facility]) Osteopenia of multiple sites- Primary documented in this encounter [facility] HealthcareEvaluation note* Diagnosis Primary hypertension ([facility]/HCC)- Primary Unspecified essential hypertension Type 2 diabetes mellitus without complication, without long-term current use of insulin Other hyperlipidemia Osteopenia of multiple sites 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 ([facility]/HCC)- Primary Primary hypertension (CMS/HCC) Unspecified essential hypertension Type 2 diabetes mellitus without complication, without long-term current use of insulin Primary hypertension (CMS/HCC)- Primary Unspecified essential hypertension Type 2 diabetes mellitus without complication, without long-term current use of insulin Gastroesophageal reflux disease without esophagitis Esophageal reflux Chronic 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 Neoplasm of uncertain behavior of skin Need for immunization against influenza- Primary Need for prophylactic vaccination and inoculation against influenza 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) Primary hypertension ([facility]/HCC) Unspecified essential hypertension Type 2 diabetes mellitus without complication, without long-term current use of insulin Encounter for subsequent annual wellness visit (AWV) in Medicare patient- Primary Type 2 diabetes mellitus without complications Primary hypertension ([facility]) Unspecified essential hypertension Gastroesophageal reflux disease without esophagitis Esophageal reflux Osteopenia of multiple sites 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) Mixed hyperlipidemia ([facility]) Mixed hyperlipidemia Encounter for screening mammogram for malignant neoplasm of breast Seasonal allergic rhinitis, unspecified trigger Type 2 diabetes mellitus without complication, without long-term current use of insulin documented in this encounter MARITZA Mercedes for referral (narrative)* Consultation (Routine) - Pending Review Specialty Diagnoses / Procedures Referred By Benjamin yanes Referred To Contact Orthopaedic Surgery Diagnoses Neoplasm of uncertain behavior Brandee Mcdaniel PA [address] [place] [address] Selin Lawler MD [address] [place] [address] Referral ID Status Reason Start Date Expiration Date Visits Requested Visits Authorized [id number] Pending Review Specialty Services Required 03/16/2024 09/12/2024 1 1 MARITZA Mercedes for referral (narrative)* Consultation (Routine) - Authorized Specialty Diagnoses / Procedures Referred By Contac t Referred To Contact Dermatology Diagnoses Neoplasm of uncertain behavior of skin Procedures MO OFFICE/OUTPATIENT NEW HIGH MDM 60 MINUTES Marybeth Walsh NP [address] [place] [phone] Jared Elder MD [address] [place] [address] Referral ID Status Reason Start Date Expiration Date Visits Requested Visits Authorized [id number] Authorized Specialty Services Required 03/07/2024 09/03/2024 1 1 * Rehabilitation - Outpatient (Routine) - Authorized Specialty Diagnoses / Procedures Referred By Contac t Referred To Contact Physical Therapy Diagnoses Chronic 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 Procedures MO OFFICE/OUTPATIENT NEW HIGH MDM 60 MINUTES Marybeth Walsh NP [address] [place] [address] Vy De Dios PT Referral ID Status Reason Start Date Expiration Date Visits Requested Visits Authorized [id number] Authorized Specialty Services Required 03/07/2024 09/03/2024 10 10 [facility] N[facility]ative* Rehabilitation - Outpatient (Routine) - Closed Specialty Diagnoses / Procedures Referred By Contac t Referred To Contact Physical Therapy Diagnoses Chronic 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 Procedures MO OFFICE/OUTPATIENT NEW HIGH MDM 60 MINUTES Marybeth Walsh NP [address] [place] [address] Phone: tel: fax: Vy De Dios, PT Referral ID Status Reason Start Date Expiration Date V isits Requested Visits Authorized [id number] Closed Specialty Services Required 03/07/2024 09/03/2024 25 30 [facility] Narrative* Consultation (Routine) - Closed Specialty Diagnoses / Procedures Referred By Contac t Referred To Contact Dermatology Diagnoses Neoplasm of uncertain behavior of skin Procedures MO OFFICE/OUTPATIENT NEW HIGH MDM 60 MINUTES Marybeth Walsh NP [address] [place] [address] Jared Elder MD [address] [place] [address] Referral ID Status Reason Start Date Expiration Date V isits Requested Visits Authorized [id number] Closed Specialty Services Required 03/07/2024 09/03/2024 1 [...] section and content) DATE CREATED AUTHOR 01/31/2022 [facility] DATE CREATED AUTHOR AUTHOR'S ORGANIZ ATION 05/30/2022 [facility] DATE CREATED AUTHOR AUTHOR'S ORGANIZ ATION 12/17/2023 [facility] DATE CREATED AUTHOR AUTHOR'S ORGANIZ ATION 11/30/2024 [facility] Care Teams (unrecognized sec tion and content) Endoscopy Nurse Relationship Specialty Start Date End Date Yannick Bills MD [address] [place] [phone] PCP - General Family Medicine 02/10/24 Marybeth Walsh NP [address] [place] [address] Nurse Practitioner Family Medicine 02/10/24 Endoscopy Nurse Relationship Specialty Start Date End Date Yannick Bills MD [address] [place] [address] PCP - General Family Medicine 02/10/24 Marybeth Walsh NP [address] [place] [address] Nurse Practitioner Family Medicine 02/10/24 Endoscopy Nurse Relationship Specialty Start Date End Date Yannick Bills MD [address] [place] [address] PCP - General Family Medicine 02/10/24 Marybeth aWlsh NP [address] [place] [address] Nurse Practitioner Family Medicine 02/10/24 Endoscopy Nurse Relationship Specialty Start Date End Date Yannick Bills MD [address] [place] [address] PCP - General Family Medicine 02/10/24 Marybteh Walsh NP [address] [place] [address] Nurse Practitioner Family Medicine 02/10/24 Endoscopy Nurse Relationship Specialty Start Date End Date Yannick Bills MD [address] [place] [address] PCP - General Family Medicine 02/10/24 Marybeth Walsh NP [address] [place] [address] Nurse Practitioner Family Medicine 02/10/24 Endoscopy Nurse Relationship Specialty Start Date End Date Yannick Bills MD [address] [place] [address] PCP - General Family Medicine 02/10/24 Marybeth Walsh NP [address] [place] [address] Nurse Practitioner Family Medicine 02/10/24 Endoscopy Nurse Relationship Specialty Start Date End Date Yannick Bills MD [address] [place] [address] PCP - General Family Medicine 02/10/24 Marybeth Walsh NP [address] [place] [address] Nurse Practitioner Family Medicine 02/10/24 Endoscopy Nurse Relationship Specialty Start Date End Date Yannick Bills MD [address] [place] [address] PCP - General Family Medicine 02/10/24 Marybeth Walsh NP [address] [place] [address] Nurse Practitioner Family Medicine 02/10/24 Endoscopy Nurse Relationship Specialty Start Date End Date Yannick Bills MD [address] [place] [phone] PCP - General Family Medicine 02/10/24 Marybeth Walsh NP [address] [place] [address] Nurse Practitioner Family Medicine 02/10/24 Endoscopy Nurse Relationship Specialty Start Date End Date Yannick Bills MD [address] [place] [address] PCP - General Family Medicine 02/10/24 Marybeth Walsh NP [address] [place] [address] Nurse Practitioner Family Medicine 02/10/24 Endoscopy Nurse Relationship Specialty Start Date End Date Yannick Bills MD [address] [place] [address] PCP - General Family Medicine 02/10/24 Marybeth Walsh NP [address] [place] [address] Nurse Practitioner Family Medicine 02/10/24 Endoscopy Nurse Relationship Specialty Start Date End Date Yannick Bills MD [address] [place] [address] PCP - General Family Medicine 02/10/24 Marybeth Walsh NP [address] [place] [address] Nurse Practitioner Family Medicine 02/10/24 Endoscopy Nurse Relationship Specialty Start Date End Date Yannick Bills MD [address] [place] [address] PCP - General Family Medicine 02/10/24 Marybeth Walsh NP [address] [place] [address] Nurse Practitioner Family Medicine 02/10/24 Endoscopy Nurse Relationship Specialty Start Date End Date Yannick Bills MD [address] [place] [address] PCP - General Family Medicine 02/10/24 Marybeth Walsh NP [address] [place] [address] Nurse Practitioner Family Medicine 02/10/24 Endoscopy Nurse Relationship Specialty Start Date End Date Yannick Bills MD [address] [place] [address] PCP - General Family Medicine 02/10/24 Marybeth Walsh NP [address] [place] [address] Nurse Practitioner Family Medicine 02/10/24 Endoscopy Nurse Relationship Specialty Start Date End Date Yannick Bills MD [address] [place] [address] PCP - General Family Medicine 02/10/24 Marybeth Walsh NP [address] [place] [address] Nurse Practitioner Family Medicine 02/10/24 Endoscopy Nurse Relationship Specialty Start Date End Date Yannick Bills MD [address] [place] [address] PCP - General Family Medicine 02/10/24 Marybeth Walsh NP [address] [place] [address] Nurse Practitioner Family Medicine 02/10/24 Endoscopy Nurse Relationship Specialty Start Date End Date Yannick Bills MD [address] [place] [address] PCP - General Family Medicine 02/10/24 Marybeth Walsh NP [address] [place] [address] Nurse Practitioner Family Medicine 02/10/24 Endoscopy Nurse Relationship Specialty Start Date End Date Yannick Bills MD [address] [place] [address] PCP - General Family Medicine 02/10/24 Marybeth Walsh NP [address] [place] [address] Nurse Practitioner Family Medicine 02/10/24 Endoscopy Nurse Relationship Specialty Start Date End Date Yannick Bills MD [address] [place] [address] PCP - General Family Medicine 02/10/24 Marybeth Walsh NP [address] [place] [address] Nurse Practitioner Family Medicine 02/10/24 Endoscopy Nurse Relationship Specialty Start Date End Date Yannick Bills MD [address] [place] [address] PCP - General Family Medicine 02/10/24 Marybeth Walsh NP [address] [place] [address] Nurse Practitioner Family Medicine 02/10/24 Reason for Visit (unrecogniz ed section and content) Specialty Diagnoses / Procedures Referred By Contjorge t Referred To Contact Physical Therapy Diagnoses Chronic 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 Procedures MO OFFICE/OUTPATIENT NEW HIGH MDM 60 MINUTES Marybeth Walsh NP [address] [place] [address] De Dios, Vy, PT Referral ID Status Reason Start Date Expiration Date Visits Requested Visits Authorized [id number] Authorized Specialty Services Required 03/07/2024 09/03/2024 25 30 Reason Onset Date Comments Med Refill 04/26/2024 Reason Onset Date Comments Med Refill 05/16/2024 Reason Onset Date Comments Med Refill 05/30/2024 Reason Comments Sinus Problem Med Refill Referral ID Status Reason Start Date Expiration Date Visits Requested Visits Authorized [id number] Authorized Specialty Services Required 03/07/2024 09/03/2024 10 10 Referral ID Status Reason Start Date Expiration Date Visits Requested Visits Authorized [id number] Authorized Specialty Services Required 03/07/2024 09/03/2024 25 25 Reason Onset Date Comments Med Refill 06/27/2024 Reason Onset Date Comments Med Refill 06/30/2024 Reason Comments Medicare Annual Wellness Visit Initial FOR RECORDS PERTAINING TO PATIENTS WHO ARE [...] BE BASED ON THE PRIMARY CLINICAL RECORDS. [employer] provides no warranty or guarantee of the accuracy or completeness of information in this document.
== END 2024-12-02 09:42 | disposition home or self-care (01) ==
LOC: RAD 09:43
PROVIDERS: PCP Nurse Practitioner; Visit Provider Nurse Practitioner
DX: M25.551 Pain in right hip (principal); M25.552 Pain in left hip; M54.50 Low back pain, unspecified; G89.29 Other chronic pain; M85.88 Other specified disorders of bone density and structure, other site; M51.369 Other intervertebral disc degeneration, lumbar region without mention of lumbar back pain or lower extremity pain
CPT/HCPCS: 72100; 73522